=== PATIENT | male | born 1975 | race Caucasian/White ===

== ENCOUNTER 2017-05-04 13:30 | Outpatient (RCR) | payer OTHER, SELFPAY | END 2017-05-04 13:31 | disposition home or self-care (01) | LOC: PT 13:30 | PROVIDERS: Visit Provider Orthopaedic Surgery | DX: M43.26 Fusion of spine, lumbar region (principal) | CPT/HCPCS: 97010; 97012; 97014; 97033; 97035; 97110; G0283 ==

== ENCOUNTER → 2018-05-01 13:03 | Outpatient (CLI) | payer OTHER, SELFPAY | PROVIDERS: PCP Family Medicine; Visit Provider Family Medicine | DX: R06.83 Snoring (principal); R53.83 Other fatigue; G47.33 Obstructive sleep apnea (adult) (pediatric) | CPT/HCPCS: 95806 ==

== ENCOUNTER → 2018-12-19 12:24 | Outpatient (CLI) | payer OTHER, SELFPAY ==
[2018-12-19 12:53] LABS: Basophils # 0.1 K/mm3 (0-0.2); Basophils % 0.9 % (0.1-2.0); Eosinophils # 0.2 K/mm3 (0.0-0.4); Eosinophils % 3.3 % (0.1-12.0); Hematocrit 43.9 % (42.0-52.0); Hemoglobin 14.1 g/dL (14.1-18.0); Mean Corpuscular HGB Conc 32.2 g/dL (31.8-35.4); Mean Corpuscular Hemoglobin 29.1 pg (27.0-31.2); Mean Corpuscular Volume 90.5 fl (80-94); Mean Platelet Volume 7.9 fl (7.4-10.4); Monocytes # 0.3 K/mm3 (0.1-1.0); Monocytes % 4.8 % (1.7-9.3); Neutrophils # 4.5 K/mm3 (1.8-7.8); Neutrophils % 63.1 % (37.0-80.0); Platelet Count 281 K/mm3 (142-424); Red Blood Count 4.85 M/mm3 (4.60-6.20); Red Cell Distribution Width 13.4 % (11.5-17.5); White Blood Count 7.1 K/mm3 (4.8-10.8)
[2018-12-19 13:57] LABS: Alanine Aminotransferase 74 U/L (12-78); Albumin Level 4.1 gm/dL (3.4-5.0); Alkaline Phosphatase 71 U/L (46-116); Aspartate Amino Transferase 31 U/L (15-37); Bilirubin,Direct 0.1 mg/dL (0.0-0.2); Bilirubin,Indirect 0.3 mg/dL (0.0-0.9); Bilirubin,Total 0.4 mg/dL (0.2-1.0); Total Protein,Serum 7.1 gm/dL (6.4-8.2)
[2018-12-19 14:53] LABS: Uric Acid 7.5 mg/dL (2.6-7.2)
[2018-12-24 12:54] LABS: Testosterone, Total, LC/MS 97.2 ng/dL (264.0-916.0); Testosterone,Free 1.5 pg/mL (6.8-21.5)
== END ==
PROVIDERS: Visit Provider Urology
DX: E34.9 Endocrine disorder, unspecified (principal); E79.0 Hyperuricemia without signs of inflammatory arthritis and tophaceous disease
CPT/HCPCS: 36415; 80076; 84402; 84403; 84550; 85025

== ENCOUNTER → 2019-02-17 15:29 | Outpatient (CLI) | payer OTHER, SELFPAY ==
[2019-02-17 15:34] LABS: Adenovirus,PCR Not Detected (NotDetected); Bordetella Pertussis Not Detected (NotDetected); Chlamydophila Pneumoniae, PCR Not Detected (NotDetected); Coronavirus 229E Not Detected (NotDetected); Coronavirus NL63 Not Detected (NotDetected); Coronavirus OC43 Not Detected (NotDetected); Coronovirus HKU1,PCR Not Detected (NotDetected); Human Metapneumovirus Not Detected (NotDetected); Influenza A, PCR Not Detected (NotDetected); Influenza AH1, 2009 Not Detected (NotDetected); Influenza AH1, PCR Not Detected (NotDetected); Influenza AH3,PCR Not Detected (NotDetected); Influenza B, PCR Not Detected (NotDetected); Mycoplasma Pneumoniae, PCR Not Detected (NotDetected); Parainfluenza 1, PCR Not Detected (NotDetected); Parainfluenza 2, PCR Not Detected (NotDetected); Parainfluenza 3, PCR Not Detected (NotDetected); Parainfluenza 4, PCR Not Detected (NotDetected); Respiratory Syncytial Virus Not Detected (NotDetected); Rhinovirus/Enterovirus Not Detected (NotDetected)
== END ==
PROVIDERS: Visit Provider Family Medicine
DX: J06.9 Acute upper respiratory infection, unspecified (principal)
CPT/HCPCS: 87486; 87581; 87633; 87798

== ENCOUNTER → 2019-02-21 16:21 | Outpatient (CLI) | payer OTHER, SELFPAY ==
--- NOTE | 2019-02-21 | XR_ITS ---
PROCEDURE: XR CHEST 2V CLINICAL HISTORY: BRONCHITIS COMPARISON: No exams were available for comparison FINDINGS: The cardiomediastinal silhouette and pulmonary vascularity are within normal limits. There is a dense likely calcified 2.0 millimeter nodule in the lingular or left lower lobe. The remainder of the lung smith are clear. No acute bony abnormalities. IMPRESSION: No acute findings. Dictated by: Tai Norris 02/21/2019 16:43 Electronically signed by Tai Norris in [place] 02/21/2019 16:43
== END ==
PROVIDERS: PCP Physician Assistant; Visit Provider Physician Assistant
DX: J40 Bronchitis, not specified as acute or chronic (principal)
CPT/HCPCS: 71046

== ENCOUNTER → 2019-06-19 10:08 | Outpatient (CLI) | payer OTHER, SELFPAY ==
[2019-06-19 10:39] LABS: Basophils # 0.1 K/mm3 (0-0.2); Basophils % 1.5 % (0.1-2.0); Eosinophils # 0.3 K/mm3 (0.0-0.4); Hematocrit 47.2 % (42.0-52.0); Hemoglobin 15.6 g/dL (14.1-18.0); Lymphocytes % 26.3 % (10-50); Mean Corpuscular HGB Conc 33.1 g/dL (31.8-35.4); Mean Corpuscular Hemoglobin 29.2 pg (27.0-31.2); Mean Platelet Volume 8.2 fl (7.4-10.4); Monocytes # 0.4 K/mm3 (0.1-1.0); Monocytes % 5.1 % (1.7-9.3); Neutrophils # 4.8 K/mm3 (1.8-7.8); Neutrophils % 63.1 % (37.0-80.0); Platelet Count 288 K/mm3 (142-424); Red Blood Count 5.36 M/mm3 (4.60-6.20); Red Cell Distribution Width 13.3 % (11.5-17.5); White Blood Count 7.6 K/mm3 (4.8-10.8)
[2019-06-19 11:16] LABS: Bilirubin,Unconjugated 0.5 mg/dL (0.0-1.1)
[2019-06-19 11:17] LABS: Alanine Aminotransferase 81 U/L (12-78); Albumin Level 4.8 g/dl (3.5-5.0); Alkaline Phosphatase 71 U/L (38-126); Aspartate Amino Transferase 49 U/L (17-59); Bilirubin,Indirect 0.5 mg/dL (0.0-0.9); Bilirubin,Total 0.5 mg/dl (0.2-1.3); Total Protein,Serum 7.9 g/dl (6.3-8.2); Uric Acid 7.6 mg/dl (3.5-8.5)
[2019-06-21 11:17] LABS: Testosterone, Total, LC/MS 170.3 ng/dL (264.0-916.0)
== END ==
PROVIDERS: Visit Provider Urology
DX: E29.1 Testicular hypofunction (principal)
CPT/HCPCS: 36415; 80076; 84402; 84403; 84550; 85025

== ENCOUNTER → 2019-06-23 10:49 | Outpatient (CLI) | payer OTHER, SELFPAY ==
--- NOTE | 2019-06-23 11:00 | XR_ITS ---
PROCEDURE: XR FOOT RT MIN 3V CLINICAL INDICATION: RT FOOT PAIN Right foot and ankle pain COMPARISON: XR ANKLE RT MIN 3V from 06/23/2019 FINDINGS: No fracture or dislocation. No lytic or blastic change. There is normal mineralization. Minimal hypertrophic changes are present at the distal tibia with minimal spurring. Rounded soft tissue calcifications are present along the lower aspect of the distal leg and may be due to phleboliths. No acute fracture or dislocation. No lytic or blastic change. Other findings:None. IMPRESSION: Mild degenerative changes of the ankle otherwise negative right ankle and foot Dictated by: Alberto Dubose MD 06/23/2019 14:05 Electronically signed by Alberto Dubose MD in [place] 06/23/2019 14:05
== END ==
PROVIDERS: PCP Family Medicine; Visit Provider Nurse Practitioner Family
DX: M79.671 Pain in right foot (principal); M25.571 Pain in right ankle and joints of right foot
CPT/HCPCS: 73610; 73630

== ENCOUNTER → 2019-12-19 13:37 | Outpatient (CLI) | payer OTHER, SELFPAY ==
[2019-12-19 14:27] LABS: Basophils # 0.1 K/mm3 (0-0.2); Basophils % 0.7 % (0.1-2.0); Eosinophils # 0.3 K/mm3 (0.0-0.4); Eosinophils % 3.4 % (0.1-12.0); Hematocrit 48.4 % (42.0-52.0); Hemoglobin 16.3 g/dL (14.1-18.0); Lymphocytes # 2.2 K/mm3 (0.7-4.5); Lymphocytes % 29.7 % (10-50); Mean Corpuscular HGB Conc 33.7 g/dL (31.8-35.4); Mean Corpuscular Hemoglobin 29.5 pg (27.0-31.2); Mean Corpuscular Volume 87.7 fl (80-94); Mean Platelet Volume 7.6 fl (7.4-10.4); Monocytes # 0.4 K/mm3 (0.1-1.0); Monocytes % 5.3 % (1.7-9.3); Neutrophils # 4.5 K/mm3 (1.8-7.8); Neutrophils % 60.9 % (37.0-80.0); Platelet Count 291 K/mm3 (142-424); Red Blood Count 5.52 M/mm3 (4.60-6.20); Red Cell Distribution Width 14.1 % (11.5-17.5); White Blood Count 7.4 K/mm3 (4.8-10.8)
[2019-12-19 15:07] LABS: Alanine Aminotransferase 55 U/L (12-78); Aspartate Amino Transferase 37 U/L (17-59); Bilirubin,Indirect 0.4 mg/dL (0.0-0.9); Bilirubin,Total 0.4 mg/dl (0.2-1.3); Bilirubin,Unconjugated 0.4 mg/dL (0.0-1.1)
[2019-12-19 15:08] LABS: Albumin Level 4.9 g/dl (3.5-5.0); Alkaline Phosphatase 74 U/L (38-126); Total Protein,Serum 7.8 g/dl (6.3-8.2)
[2019-12-27 11:30] LABS: Testosterone, Total, LC/MS 281.9 ng/dL (264.0-916.0); Testosterone,Free 7.8 pg/mL (6.8-21.5)
== END ==
PROVIDERS: Visit Provider Urology
DX: E34.9 Endocrine disorder, unspecified (principal)
CPT/HCPCS: 36415; 80076; 84402; 84403; 85025

== ENCOUNTER → 2020-01-28 10:20 | Outpatient (CLI) | payer OTHER, SELFPAY ==
[2020-01-28 12:44] LABS: Basophils # 0.1 K/mm3 (0-0.2); Basophils % 1.1 % (0.1-2.0); Eosinophils # 0.2 K/mm3 (0.0-0.4); Hematocrit 51.6 % (42.0-52.0); Hemoglobin 16.7 g/dL (14.1-18.0); Lymphocytes # 2.3 K/mm3 (0.7-4.5); Lymphocytes % 27.8 % (10-50); Mean Corpuscular HGB Conc 32.5 g/dL (31.8-35.4); Mean Corpuscular Hemoglobin 29.5 pg (27.0-31.2); Mean Corpuscular Volume 90.8 fl (80-94); Mean Platelet Volume 8.2 fl (7.4-10.4); Monocytes # 0.4 K/mm3 (0.1-1.0); Monocytes % 4.5 % (1.7-9.3); Neutrophils # 5.3 K/mm3 (1.8-7.8); Neutrophils % 64.6 % (37.0-80.0); Platelet Count 350 K/mm3 (142-424); Red Blood Count 5.68 M/mm3 (4.60-6.20); Red Cell Distribution Width 14.2 % (11.5-17.5); White Blood Count 8.2 K/mm3 (4.8-10.8)
[2020-01-29 13:26] LABS: Covid-19 Nasal PCR Sendout Lex NOT DETECTED
== END ==
PROVIDERS: PCP Family Medicine; Visit Provider Physician Assistant
DX: Z03.818 Encounter for observation for suspected exposure to other biological agents ruled out (principal)
CPT/HCPCS: 36415; 85025; 87275; 87276; U0004

== ENCOUNTER 2020-02-04 20:05 | Emergency (ER) | payer OTHER, SELFPAY ==
[2020-02-04 20:16] VITALS: BP 172/94; PULSE 102; RESP 20; TEMP 36.7; O2SAT 100; BMI 35.6
--- NOTE | 2020-02-04 20:32 | HMH.EDUTC ---
[facility] [place] Dis[place] Clinical Impression: Elevated blood pressure reading Disposition: Home, Self-Care Condition on Discharge: Good Instructions: Essential Hypertension, Low-Sodium Diet Additional Instructions: Start the blood pressure medication (lisinopril) as directed. Follow up with your primary care doctor. Call tomorrow to get an appointment scheduled within the next 10 days or so. Keep checking your blood pressure twice per day at home. Keep a log of the results. If you have more symptoms like elevated blood pressure and severe headache or nose bleeds or dizziness like you were having, please go to the ER. GO TO THE ER FOR ANY WORSENING SYMPTOMS OR CONCERNS LIFESTYLE MODIFICATIONS: LOW SODIUM DIET, LOW IMPACT EXERCISE FOR 30 MINUTES PER DAY (WALKING), REDUCE STRESS, ETC. Prescriptions: lisinopriL [Lisinopril 10mg Tab] 10 mg PO DAILY 30 Days #30 tab Transmission Status: Received by [id number] Referrals: Minh Pop MD [Primary Care Provider] - Time of Disposition: 20:49 Medical Decision Making - Medical Records Medical records reviewed: No: I reviewed the patient's medical records. - Jai Inquiry Pt receiving controlled substance: No Vital Signs: 02/04/20 20:16 02/04/20 20:50 Temperature 98.1 F Temperature Source Oral Pulse Rate [Radial] 102 H Respiratory Rate 20 Blood Pressure [Right Arm] 172/94 H 144/76 H Blood Pressure Mean [Right Arm] 120 98 Blood Pressure Source [Right Arm] Automatic Cuff Automatic Cuff Blood Pressure Position [Right Arm] Sitting Sitting 02 Sat by Pulse Oximetry 100 Oxygen Delivery Method Room Air Orders (Tests/Meds): ED MEDICATIONS Discontinued Medications Generic Name Dose Route Start Last Admin Trade Name Izabel PRN Reason Stop Dose Admin Clonidine HCl 0.1 mg 02/04/20 20:35 02/04/20 20:36 Clonidine 0.1mg Tablet PO 02/04/20 20:36 0.1 mg ONCE ONE Administration [facility] [place] HPI - General Stated complaint: high blood pressure at home Time Seen by Provider: 02/04/20 20:20 Mode of Arrival: Ambulatory Source of Information: Patient Limitations: No Limitations Description of Symptoms (Recalled from Triage Doc. by RN): blood pressure issues. MEJIA HEENT Symptoms (Recalled from RN notes): Yes Resp Symptoms (Recalled from RN notes): No Skin Symptoms (Recalled from RN notes): No MS Symptoms (Recalled from RN notes): No Functional Status (Recalled from RN notes): wnl - History of Present Illness Provider Complaint: He states that he has been having elevated blood pressure at home over the past several days. He has got results as high as 230/120. He was having headache and dizziness yesterday, but he denies any discomfort today. He denies any shortness of breath and chest pain. - Related Data Home Medications Medication Instructions Recorded Confirmed guanfacine 2 mg tablet,extended 2 mg PO DAILY 05/09/18 12/19/19 release 24 hr allopurinoL [Allopurinol 100mg 100 mg PO DAILY 10/28/18 12/19/19 tablet] Previous Rx's Medication Instructions Recorded lisinopriL [Lisinopril 10mg Tab] 10 mg PO DAILY 30 Days #30 tab 02/04/20 Allergies Allergy/AdvReac Type Severity Reaction Status Date / Time No Known Allergies Allergy Verified 12/19/19 13:09 - Worker's Comp Is this a Worker's Comp case?: No [facility] History - Hepatitis A Screen Drug use history?: No High risk sexual behaviors?: No History of sexually transmitted infection?: No Currently employed?: No Childcare worker?: No Do you have indoor plumbing?: Yes Do you have electricity?: Yes Attestation statement:: This patient has been screened for Hepatitis A risk factors. I have reviewed the patient's past medical history: Yes Medical History: Denies:: Cancer, Diabetes Mellitus Type 1, Diabetes Mellitus Type 2, MRSA Laterality Cases: Bilateral: Tonsillectomy, Other Other Surgeries: Yes: No Previous Surgery, Other Amputation: No Fracture
[2020-02-04 20:50] VITALS: BP 144/76
[2020-02-04 20:56] VITALS: BP 144/76; PULSE 102; RESP 20; TEMP 36.7; O2SAT 100
== END 2020-02-04 20:57 | disposition home or self-care (01) ==
PROVIDERS: Emergency Provider Nurse Practitioner Family; PCP Family Medicine
DX: R42 Dizziness and giddiness (principal); I10 Essential (primary) hypertension
CPT/HCPCS: 99201

== ENCOUNTER 2020-02-06 09:42 | Emergency (ER) | payer OTHER, SELFPAY ==
[2020-02-06] VITALS (7 sets, daily range): BP systolic 107–148; BP diastolic 72–102; PULSE 58–86; RESP 13–24; TEMP 36.4–36.7; O2SAT 96–99; BMI 35.6
--- NOTE | 2020-02-06 09:40 | ECG_ITS ---
APPROVED REPORT Exam: Resting ECG HR:70 bpm ECG Measurements Heart Rate 70 AXES WV 150 P 40 QRSd 106 QRS 34 QT 390 T 51 QTc 421 Conclusion Normal sinus rhythm Normal ECG Electronically signed by : Mario Cramer, 02/07/2020 10:35:03
--- NOTE | 2020-02-06 09:45 | HMH.EDGENADL ---
ED Disposition Clinical Impression: Headache Qualifiers: Headache type: unspecified Headache chronicity pattern: acute headache Intractability: not intractable Qualified Code(s): R51.9 - Headache, unspecified Hypertension Qualifiers: Hypertension type: essential hypertension Qualified Code(s): I10 - Essential (primary) hypertension Disposition: Home, Self-Care Condition on Discharge: Good Instructions: DI for Migraine Additional Instructions: Please continue with blood pressure log as directed by PCP and continue taking lisinopril as prescribed. Diet and exercise can also be effective when dealing with hypertension. Please follow-up with your doctor in regards to recurrent headaches. Immediately return to our emergency department if recurrent chest pain, lightheadedness, shortness of breath, blurry vision, blood pressure concerns, or any other new concerning symptoms. Please refrain from any stressful activities or heavy workload over the weekend. Referrals: PCP,No [Non-Staff] - - Critical Care Critical Care Time: No Attestation: On , the high probability of a clinically significant, sudden or life threatening deterioration of the following system(s) required my full and direct attention, intervention and personal management. The time I documented below is in addition to time spent performing reported procedures but includes the following listed in this critical care notation. Medical Decision Making - Medical Records Medical records reviewed: Yes: I reviewed the patient's medical records. - Jai Inquiry Pt receiving controlled substance: No Vital Signs: 02/06/20 09:42 02/06/20 10:33 02/06/20 11:00 Temperature 97.6 F Temperature Source Oral Pulse Rate [Left Radial] 86 72 75 Respiratory Rate 13 20 24 Blood Pressure [Right Arm] 148/102 H 128/88 134/81 Blood Pressure Mean [Right Arm] 117 101 98 Blood Pressure Source [Right Arm] Automatic Cuff Automatic Cuff Automatic Cuff Blood Pressure Position [Right Arm] Sitting Sitting Sitting 02 Sat by Pulse Oximetry 99 99 97 Oxygen Delivery Method Room Air Room Air Oxygen Flow Rate (LPM) 20 02/06/20 11:30 02/06/20 12:00 02/06/20 12:35 Temperature Temperature Source Pulse Rate [Left Radial] 58 L 78 80 Respiratory Rate 20 22 18 Blood Pressure [Right Arm] 107/72 L 116/79 124/79 Blood Pressure Mean [Right Arm] 83 91 94 Blood Pressure Source [Right Arm] Automatic Cuff Automatic Cuff Automatic Cuff Blood Pressure Position [Right Arm] Sitting Sitting Sitting 02 Sat by Pulse Oximetry 98 96 98 Oxygen Delivery Method Oxygen Flow Rate (LPM) - Lab Data Lab Results 02/06/20 09:45: WBC 8.7, RBC 5.51, Hgb 16.3, Hct 49.5, MCV 89.8, MCH 29.6, MCHC 33.0, RDW 14.3, Plt Count 333, MPV 9.7, Neut % (Auto) 68.9, Lymph % (Auto) 23.2, [facility] % (Auto) 5.1, Eos % (Auto) 2.0, Baso % (Auto) 0.9, Neut # (Auto) 6.0, Lymph # (Auto) 2.0, [facility] # (Auto) 0.4, Eos # (Auto) 0.2, Baso # (Auto) 0.1 02/06/20 09:45: Sodium 138, Potassium 4.4, Chloride 104, Carbon Dioxide 25, Anion Gap 13.4, BUN 13, Creatinine 1.00, Estimated Creat Clear 165, Estimated GFR 82, Est GFR ( Amer) 99, Glucose 101 H, Calcium 10.0, Troponin I < 0.01 02/06/20 12:50: Troponin I < 0.01 Result diagrams: 02/06/20 09:45 02/06/20 09:45 Orders (Tests/Meds): ED MEDICATIONS Discontinued Medications Generic Name Dose Route Start Last Admin Trade Name Karloq PRN Reason Stop Dose Admin Acetaminophen 1,000 mg 02/06/20 10:49 02/06/20 10:50 Acetaminophen 500mg Tab PO 02/06/20 10:50 1,000 mg ONCE ONE Administration Diphenhydramine HCl 25 mg 02/06/20 12:20 02/06/20 12:36 Diphenhydramine 50mg/Ml Vial IV 02/06/20 12:21 25 mg ONCE ONE Administration Sodium Chloride 500 mls @ 999 mls/hr 02/06/20 12:30 02/06/20 12:36 Sod Chlor 0.9% 1000ml Bag IV 02/06/20 13:00 999 mls/hr .Q31M DEMOND Administration Prochlorperazine Edisylate 10 mg 02/06/20 12:20 02/06/20 12:35 Proch
--- NOTE | 2020-02-06 09:49 | XR_ITS ---
PROCEDURE: XR CHEST PORTABLE CLINICAL HISTORY: hypertension COMPARISON: CR XR CHEST 2V from 02/21/2019 FINDINGS: The cardiomediastinal silhouette and pulmonary vascularity are within normal limits. The lungs are clear without infiltrates, suspicious nodules, or pleural effusions. No acute bony abnormalities. IMPRESSION: No acute findings. Dictated by: Dr. Luther Watson MD 02/06/2020 10:57 Dr. Luther Watson MD in [place] 02/06/2020 10:57
--- NOTE | 2020-02-06 10:00 | CT_ITS ---
PROCEDURE: CT HEAD/BRAIN WO CON CLINICAL INDICATION: new onset L frontal headache with blurry vision hypertension COMPARISON: No exams were available for comparison TECHNIQUE: Axial images obtained. All CT scans at the facility use one or more dose reduction, viz: automated exposure control, ma/kV adjustment per patient size (including targeted exams where dose is matched to indication, i.e. head), or iterative reconstruction technique. FINDINGS: No midline shift, mass effect, intracranial hemorrhage, hydrocephalus, or extra-axial fluid collection is evident. There are no significant degenerative changes. The calvarium has an unremarkable appearance. No mastoid effusion. No sinus air-fluid level. IMPRESSION: No acute intracranial finding Dictated by: Dr. Luther Watson MD 02/06/2020 10:57 Dr. Luther Watson MD in [facility] 02/06/2020 10:57
[2020-02-06 10:01] LABS: Chloride 104 mmol/L (98-107); Potassium 4.4 mmoL/L (3.5-5.1); Sodium 138 mmol/L (136-145)
[2020-02-06 10:04] LABS: Anion Gap 13.4 mEq/L (5-15); Blood Urea Nitrogen 13 mg/dl (9-20); Carbon Dioxide 25 mmol/L (22.0-30.0); Creatinine Clearance Estimated 165 mL/min (50-200); Estimated Glomerular Filt Rate 82 ml/min (>60); GFR (African American) 99 ML/MIN (>60); Glucose 101 mg/dl (74-100)
[2020-02-06 10:05] LABS: Basophils # 0.1 K/mm3 (0-0.2); Basophils % 0.9 % (0.1-2.0); Eosinophils # 0.2 K/mm3 (0.0-0.4); Hematocrit 49.5 % (42.0-52.0); Hemoglobin 16.3 g/dL (14.1-18.0); Lymphocytes % 23.2 % (10-50); Mean Corpuscular Hemoglobin 29.6 pg (27.0-31.2); Mean Corpuscular Volume 89.8 fl (80-94); Mean Platelet Volume 9.7 fl (7.4-10.4); Monocytes # 0.4 K/mm3 (0.1-1.0); Monocytes % 5.1 % (1.7-9.3); Neutrophils % 68.9 % (37.0-80.0); Platelet Count 333 K/mm3 (142-424); Red Blood Count 5.51 M/mm3 (4.60-6.20); Red Cell Distribution Width 14.3 % (11.5-17.5); White Blood Count 8.7 K/mm3 (4.8-10.8)
[2020-02-06 10:23] LABS: Troponin I < 0.01 ng/ml (0.00-0.034)
--- NOTE | 2020-02-06 10:31 | PC.NURSE ---
speaking with pt nurse at the nursing due to pt resistance of reinsertion of G-tube. Nurse states that at 7am the g-tube was out. Pt was scheduled for a 1am med and was given this medicine per nurse.
--- NOTE | 2020-02-06 12:55 | PC.NURSE ---
2nd trop sent to lab
[2020-02-06 13:27] LABS: Troponin I < 0.01 ng/ml (0.00-0.034)
== END 2020-02-06 14:04 | disposition home or self-care (01) ==
PROVIDERS: Emergency Provider Emergency Medicine; PCP Family Medicine
DX: G43.909 Migraine, unspecified, not intractable, without status migrainosus (principal); I10 Essential (primary) hypertension; R07.89 Other chest pain; Z79.899 Other long term (current) drug therapy
CPT/HCPCS: 70450; 71045; 80048; 84484; 85025; 93005; 96365; 96375; 99283

== ENCOUNTER → 2020-02-24 13:46 | Outpatient (CLI) | payer OTHER, SELFPAY | PROVIDERS: PCP Family Medicine; Visit Provider Physician Assistant | DX: R07.89 Other chest pain (principal); R00.2 Palpitations; R94.31 Abnormal electrocardiogram [ECG] [EKG]; R55 Syncope and collapse; R51.9 Headache, unspecified; I10 Essential (primary) hypertension | CPT/HCPCS: 93225; 93226 ==

== ENCOUNTER → 2020-03-03 07:37 | Outpatient (CLI) | payer OTHER, SELFPAY ==
--- NOTE | 2020-03-03 07:38 | CA_ITS ---
APPROVED REPORT Flow Worker: Jihan Em RVT Study Quality: Good Indications: chest pain, dyspnea, Uncontrolled HTN Risk Factors Hypertension Renal Artery Doppler Origin (R) 143.0/ cm/sec Proximal (R) 106.9/ cm/sec Mid (R) 139.8/ cm/sec Distal (R) 95.8/ cm/sec Renal Aorta Ratio (R) 1.43 Segmental A. (R) 36.4/18.2 cm/sec RI: 0.50 Segmental A. Sup (R) 28.7/10.5 cm/sec Segmental A. Mid (R) 36.4/18.2 cm/sec Segmental A. Inf (R) 30.8/12.8 cm/sec Origin (L) 69.6/ cm/sec Proximal (L) 90.9/ cm/sec Mid (L) 92.6/ cm/sec Distal (L) 124.3/ cm/sec Renal Aorta Ratio (L) 0.00 Segmental A. (L) 49.0/16.3 cm/sec RI: 0.66 Segmental A. Sup (L) 49.0/16.3 cm/sec Segmental A. Mid (L) 41.0/15.7 cm/sec Segmental A. Inf (L) 43.7/14.0 cm/sec Renal Measurements Kidney Size (R) 11.6x7.6 cm Kidney Size (L) 12.5x6.0 cm Findings Study suggests no evidence of stenosis of the bilateral renal arteries. Conclusion Study suggests no evidence of stenosis of the bilateral renal arteries. Electronically signed by : Alberto Dubose MD 03/03/2020 18:57:42
--- NOTE | 2020-03-03 07:38 | CA_ITS ---
APPROVED REPORT EXAM: Comprehensive 2D, Doppler, and color-flow Echocardiogram Area Sales Manager: Jihan Em RVT Ht: 6 ft 1 in Wt: 281lbs BSA: 2.49 BP: 140/91 mmHg Indications: SOA,CP,HTN,EDEMA,PALPS,FATIGUE,ABN EKG 2D Dimensions LVOT 2.24 cm (M/F) 1.5-2.5 M-Mode Dimensions RVDd 3.36 cm (0.9-2.6) LA Diam 3.10 cm (1.9-4.0) LVDd 5.61 cm (3.5-5.7) Ao Diam 3.64 cm (2.0-3.7) LVDs 3.93 cm (3.5-5.7) IVSd 0.61 cm (0.6-1.1) PWd 0.93 cm (0.6-1.1) EF (Teich) 56.50% FS 29.90% EDV (Teich) 154.30 mL ESV (Teich) 67.10 mL LV Diastology E Decel Time 240.00 (160-240 msec) E/A Ratio 0.8 MED E' 5.60 (< 7 cm/sec) E'/MED E' Ratio 11.32 (>14) LAT E' 7.00 (<10 cm/sec) E/LAT E' Ratio 9.06 (>14) Mitral Valve MV E Max Gabriel. 63.00 (40-130 cm/s) MV A Velocity 78.00 (40-130 cm/s) E/A Ratio 0.82 MV Decel. Time 240.00 (160-240 ms) MV PHT 70.00 ms Pulmonary Valve PV Peak Velocity 86.00 (50-150 cm/s) Left Ventricle Left atrium is mildly enlarged, left ventricle is normal size, mild concentric left ventricular hypertrophy, visually estimated ejection fraction 55% with no regional wall motion abnormality, grade 1 diastolic dysfunction seen without tissue Doppler evidence of raise left atrial pressure. Right Ventricle Right atrium and right ventricle are mildly enlarged with normal contractility. Aortic Valve Aortic valve is minimally thickened and fibrosed, there is no aortic stenosis or aortic insufficiency. Mitral Valve Mitral valve is grossly normal, there is mild mitral regurgitation. Tricuspid Valve Tricuspid valve is grossly normal, there is mild tricuspid regurgitation, tricuspid regurgitation jet velocity is inadequate for calculation of the right ventricular systolic pressure. Pulmonic Valve Pulmonic valve is poorly visualized, there is mild pulmonic insufficiency. Great Vessels Aortic root is normal size. Pericardium No significant pericardial effusion noted. Conclusion 1. Mild biatrial enlargement, normal left ventricular size, mild concentric left ventricular hypertrophy, visually estimated ejection fraction 55% with no regional wall motion abnormality, grade 1 diastolic dysfunction seen without tissue Doppler evidence of raise left atrial pressure. 2. Mildly enlarged right ventricle with normal contractility. 3. Mild mitral and tricuspid regurgitation. 4. No significant pericardial effusion noted. Electronically signed by : Malcom Benjamin, 03/04/2020 16:00:28
== END ==
PROVIDERS: PCP Family Medicine; Visit Provider Internal Medicine
DX: R07.89 Other chest pain (principal); R55 Syncope and collapse; R00.2 Palpitations; R94.31 Abnormal electrocardiogram [ECG] [EKG]; I10 Essential (primary) hypertension; R51.9 Headache, unspecified
CPT/HCPCS: 93306; 93976

== ENCOUNTER → 2020-03-10 09:53 | Outpatient (CLI) | payer OTHER, SELFPAY ==
[2020-03-10 11:30] LABS: Alanine Aminotransferase 55 U/L (12-78); Albumin Level 4.9 g/dl (3.5-5.0); Alkaline Phosphatase 79 U/L (38-126); Aspartate Amino Transferase 33 U/L (17-59); Bilirubin,Direct 0.3 mg/dl (0.0-0.4); Bilirubin,Indirect 0.1 mg/dL (0.0-0.9); Bilirubin,Total 0.4 mg/dl (0.2-1.3); Bilirubin,Unconjugated 0.1 mg/dL (0.0-1.1); Chol/HDL Ratio 3.9 (1-3.5); Cholesterol 176 mg/dl (140-200); HDL Cholesterol 45 mg/dl (40-60); Triglycerides 156 mg/dl (30-150); VLDL Cholesterol 31 mg/dL (0-40)
[2020-03-10 11:41] LABS: Direct LDL Cholesterol 104.02 mg/dL (100-129)
[2020-03-10 11:44] LABS: Free T4 (Free Thyroxine) 0.98 ng/dl (0.78-2.19)
[2020-03-10 11:58] LABS: Thyroid Stimulating Hormone 3.17 uIU/mL (0.465-4.68)
== END ==
PROVIDERS: Visit Provider Urology
DX: R07.9 Chest pain, unspecified (principal); R06.00 Dyspnea, unspecified; I10 Essential (primary) hypertension; R60.0 Localized edema
CPT/HCPCS: 36415; 80061; 80076; 84439; 84443

== ENCOUNTER → 2020-03-15 09:12 | Outpatient (CLI) | payer OTHER, SELFPAY ==
--- NOTE | 2020-03-15 09:13 | CA_ITS ---
APPROVED REPORT Exam: Exercise Treadmill Technologist: Tiny Mtz Ht: 6 ft 1 in Wt: 279 lbs BSA: 2.48 m2 HR: 89 bpm BP: 132/85 mmHg Indications: Chest pain, Palpitations Medical History Medications: Lisinopril,,,,, Allopurinol,,,,, HCTZ,,,,, Atomoxetine,,,,, Stress Test Details Test: Cristian HR Resting HR: 107 bpm Max Heart Rate (APMHR): 177 bpm Max HR Achieved: 181 bpm Target HR (85% APMHR): 150 bpm % of APMHR: 102 Recovery HR: 114 bpm BP Resting BP: 132.0/85.0 mmHg Max BP: 164.0/90.0 mmHg Recovery BP: 143.0/82.0 mmHg ECG Resting ECG: Normal sinus rhythm Clinical Reason for Termination: Dyspnea Exercise duration: 09:46 min Highest Stage Achieved: Exercise capacity: 10.1 METs Stress ECG Conclusion Symptoms: Shortness of air. Faint feeling in recovery. No chest pain. Arrhythmias/Ectopy: Rare PVC ST-T Changes: < 1.[address] segment changes. Conclusion: Normal stress test. Patient exercised on a cristian protocol for 9 minutes and 46 seconds to peak heart rate of 180 bpm (target heart rate 150 bpm) without chest pain, ST segment changes or significant arrhythmias. Rare PVC noted. Sensation of feeling like I am going to pass out noted in early recovery without correlating arrhythmia. No imaging obtained. Test Summary RECOVERY 01:00 0.0 0.0 165 . . . Stop exercise at 09:46 REST . . . . . . . Standing REST 06:32 0.0 0.0 107 . 132/ 85 . . Stage 1 01:00 10.0 1.7 115 . . . . Stage 1 02:00 10.0 1.7 123 . . . . Stage 1 03:00 10.0 1.7 126 . 150/ 82 . . Stage 2 01:00 12.0 2.5 135 . . . . Stage 2 02:00 12.0 2.5 139 . . . . Stage 2 03:00 12.0 2.5 146 . 158/ 90 . . Stage 3 01:00 14.0 3.4 159 . . . . Stage 3 02:00 14.0 3.4 165 . . . . Stage 3 03:00 14.0 3.4 169 . 164/ 90 . . Stage 4 00:46 16.0 4.2 180 . . . Stop exercise at 09:46 RECOVERY 01:00 0.0 0.0 165 . . . . RECOVERY 02:00 0.0 0.0 152 . . . . RECOVERY 03:00 0.0 0.0 137 . . . . RECOVERY 04:00 0.0 0.0 130 . . . . RECOVERY 05:00 0.0 0.0 120 . . . . RECOVERY 06:00 0.0 0.0 122 . . . . RECOVERY 07:00 0.0 0.0 119 . . . . RECOVERY 08:00 0.0 0.0 113 . . . . RECOVERY 08:31 0.0 0.0 115 . 143/ 82 . . Electronically signed by : Malcom Benjamin, 03/16/2020 06:15:16
== END ==
PROVIDERS: PCP Family Medicine; Visit Provider Urology
DX: R07.9 Chest pain, unspecified (principal); R06.00 Dyspnea, unspecified; R94.31 Abnormal electrocardiogram [ECG] [EKG]; R60.0 Localized edema; I10 Essential (primary) hypertension
CPT/HCPCS: 93017

== ENCOUNTER 2020-05-03 09:53 | Emergency (ER) | payer OTHER, SELFPAY ==
[2020-05-03 10:08] VITALS: BP 117/75; PULSE 97; RESP 16; TEMP 37; O2SAT 99; BMI 34.2
--- NOTE | 2020-05-03 10:17 | HMH.EDUTC ---
[facility] [place] Impression: Viral syndrome, Exposure to COVID-19 virus Disposition: Home, Self-Care Condition on Discharge: Good Instructions: DI for COVID-19 (Suspected or Confirmed ), Preventing the Spread of Coronavirus Discharge Instructions Additional Instructions: Drink plenty of fluids. Take tylenol for pain or fever. Return if you begin to have difficulty breathing. Follow up with your regular doctor. GO TO THE ER FOR ANY WORSENING SYMPTOMS Prescriptions: Ondansetron [Zofran 4mg ODT] 4 mg PO Q8HP PRN #12 tab.rapdis PRN Reason: Nausea Transmission Status: Received by [facility] Benzonatate [Tessalon Perle 100mg Cap] 100 mg PO TIDP PRN #30 cap PRN Reason: Cough Transmission Status: Received by [facility] Azithromycin [Z-Carlos 250mg Tab*] 250 mg PO UD DOSE PK #6 tab Transmission Status: Received by [facility] Referrals: Minh Pop MD [Primary Care Provider] - Forms: Work/School Release Time of Disposition: 10:22 Medical Decision Making - Medical Records Medical records reviewed: No: I reviewed the patient's medical records. - Jai Inquiry Pt receiving controlled substance: No Vital Signs: 05/03/20 10:08 05/03/20 10:30 Temperature 98.6 F 98 F Temperature Source Oral Pulse Rate 96 H Pulse Rate [Right] 97 H Respiratory Rate 16 16 Blood Pressure 113/73 Blood Pressure [Right Arm] 117/75 Blood Pressure Mean [Right Arm] 89 Blood Pressure Source [Right Arm] Automatic Cuff Blood Pressure Position [Right Arm] Sitting 02 Sat by Pulse Oximetry 99 [facility] [place] - General Stated complaint: covid test Time Seen by Provider: 05/03/20 10:17 Mode of Arrival: Ambulatory Source of Information: Patient Limitations: No Limitations Description of Symptoms (Recalled from Triage Doc. by RN): pt was directly exposed to covid positive son. pt is asymptomatic. HEENT Symptoms (Recalled from RN notes): No Resp Symptoms (Recalled from RN notes): No Skin Symptoms (Recalled from RN notes): No MS Symptoms (Recalled from RN notes): No Functional Status (Recalled from RN notes): na - History of Present Illness Provider Complaint: His son has covid. He is here to be tested himself. - Related Data Home Medications Medication Instructions Recorded Confirmed allopurinol 100 mg tablet 300 mg PO DAILY tab 02/18/20 03/10/20 atomoxetine 18 mg capsule 18 mg PO DAILY cap 02/18/20 03/10/20 Previous Rx's Medication Instructions Recorded hydrochlorothiazide 25 mg tablet 25 mg PO .three times a week #30 02/18/20 tab lisinopril 40 mg tablet 40 mg PO DAILY #90 tab 03/10/20 Azithromycin [Z-Carlos 250mg Tab*] 250 mg PO UD DOSE PK #6 tab 05/03/20 Benzonatate [Tessalon Perle 100mg 100 mg PO TIDP PRN #30 cap 05/03/20 Cap] Ondansetron [Zofran 4mg ODT] 4 mg PO Q8HP PRN #12 tab.rapdis 05/03/20 Allergies Allergy/AdvReac Type Severity Reaction Status Date / Time No Known Allergies Allergy Verified 05/03/20 10:00 - Worker's Comp Is this a Worker's Comp case?: No [facility] History - Hepatitis A Screen Drug use history?: No High risk sexual behaviors?: No History of sexually transmitted infection?: No Currently employed?: No Childcare worker?: No Do you have indoor plumbing?: Yes Do you have electricity?: Yes Attestation statement:: This patient has been screened for Hepatitis A risk factors. I have reviewed the patient's past medical history: Yes Medical History: Reports:: Hypertension Denies:: Cancer, Diabetes Mellitus Type 1, Diabetes Mellitus Type 2, MRSA Laterality Cases: Bilateral: Tonsillectomy, Other Other Surgeries: Yes: No Previous Surgery, Other Amputation: No Fractures: No Comment: BACK SURGERY - Social History Smoking Status: Never smoker Alcohol Intake: never Alcohol Intake Frequency:: a few times a month Substance Use Type: denies use Occupational Status: employed Housing: house Family Hx:: Hypertension, Canc
[2020-05-03 10:30] VITALS: BP 113/73; PULSE 96; RESP 16; TEMP 36.6
--- NOTE | 2020-05-03 13:46 | PC.NURSE ---
PT NOTIFIED OF POSITIVE COVID TEST RESULTS
== END 2020-05-03 10:30 | disposition home or self-care (01) ==
PROVIDERS: Emergency Provider Nurse Practitioner Family; PCP Family Medicine
DX: U07.1 COVID-19 (principal); I10 Essential (primary) hypertension
CPT/HCPCS: 99202; G0463; U0003

== ENCOUNTER 2020-08-29 10:10 | Emergency (ER) | payer OTHER, SELFPAY ==
[2020-08-29 10:10] VITALS: BP 124/80; PULSE 84; RESP 16; TEMP 36.9; O2SAT 98; BMI 28.3
--- NOTE | 2020-08-29 10:14 | HMH.EDGENADL ---
ED Disposition Clinical Impression: Multiple abrasions Lumbar strain Qualifiers: Encounter type: initial encounter Qualified Code(s): S39.012A - Strain of muscle, fascia and tendon of lower back, initial encounter Sprain of left foot Qualifiers: Encounter type: initial encounter Qualified Code(s): S93.602A - Unspecified sprain of left foot, initial encounter Right shoulder strain Qualifiers: Encounter type: initial encounter Qualified Code(s): S46.911A - Strain of unspecified muscle, fascia and tendon at shoulder and upper arm level, right arm, initial encounter Disposition: Home, Self-Care Condition on Discharge: Good Instructions: DI for Low Back Pain, DI for Foot Sprain, How to Use Crutches Additional Instructions: Follow-up with Dr. Matias for low back pain. Call tomorrow for appointment. Follow-up with Dr. Hamm for foot injury, call tomorrow for appointment. Crutches and orthopedic boot until follow-up. Ice and elevation for pain and swelling. [place] for pain. Sitting job only until seen for follow-up. Additional instructions for CONTROLLED SUBSTANCES: You have been prescribed a medication that is a controlled substance. Controlled substances include pain medications known as opiates and sedative nerve medications known as benzodiazepines. Tramadol, fioricet, and gabapentin are also controlled substances. Some common opiates include: Codeine (such as Tylenol #3) Hydrocodone (Vicodin, Lortab, Lorcet, [place]) Oxycodone (Percocet, Percodan, Oxycodone, Oxy IR) Some common benzodiazepines include: Diazepam (Valium) Lorazepam (Ativan) Alprazolam (Xanax) Clonazepam (Klonopin) Oxazepam (Serax) All of these controlled substances are highly addictive and frequently abused. Misuse can and frequently does lead to addiction as well as overdose and . Medication should be stored in a locked cabinet or other secure storage unit. Do not store the medication in a motor vehicle. Short term supplies, 3 days or less, are prescribed because of the highly addictive nature of the medication. Any of the controlled substance medication NOT taken should be disposed of properly and NOT SAVED. The recommended method of disposing of unused medications is: Place the medicines in a sealable plastic bag. If the medicine is a solid, crush it or add water to dissolve it. Add something undesirable (cat litter, coffee grounds, etc.) Dispose of sealed bag in household trash Do not flush or pour unused medicines down a sink or drain. Controlled substances should not be shared, given away or sold. Because of the addictive nature and frequent abuse, these medications are sometimes stolen. These medications should be kept in a safe place where they cannot be stolen. Do not keep them in your car or purse. Lost or stolen prescriptions for controlled substances WILL NOT BE REFILLED in this emergency department, regardless of whether a police report was filed. Prescriptions: Hydrocod/Acet 5/325 mg [[place] 5/325mg tablet] 1 tab PO Q6HP PRN #10 tab PRN Reason: Pain Transmission Status: Sent to [facility] Referrals: Minh Pop MD [Primary Care Provider] - - Critical Care Critical Care Time: No Attestation: On , the high probability of a clinically significant, sudden or life threatening deterioration of the following system(s) required my full and direct attention, intervention and personal management. The time I documented below is in addition to time spent performing reported procedures but includes the following listed in this critical care notation. Medical Decision Making - Jai Inquiry Pt receiving controlled substance: Yes Jai was queried for this patient: Yes Risks and benefits of using a controlled substance: were discussed with pt by me Vital Signs: 08/29/20 10:10 08/29/20 11:08 Temperature 98.5 F Temperature Source Oral Pulse Rate 69 Pulse Rate [Radial] 84 Respir
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
--- NOTE | 2020-08-29 10:21 | XR_ITS ---
PROCEDURE INFORMATION: Exam: XR Left Foot Exam date and time: 08/29/2020 10:21 AM Age: 45 years old Clinical indication: Patient HX: Left foot pain; Additional info: Injury TECHNIQUE: Imaging protocol: XR Left foot. Views: 3 or more views. COMPARISON: No relevant prior studies available. FINDINGS: Bones/joints: Moderate posterior calcaneal spur. Soft tissues: Normal. IMPRESSION: Moderate posterior calcaneal spur. No definite fractures identified.
--- NOTE | 2020-08-29 10:21 | XR_ITS ---
PROCEDURE INFORMATION: Exam: XR Right Shoulder Exam date and time: 08/29/2020 10:21 AM Age: 45 years old Clinical indication: Patient HX: Right shoulder pain; Additional info: Injury TECHNIQUE: Imaging protocol: XR Right shoulder. Views: 2 or more views. COMPARISON: CR XR CHEST PORTABLE 02/06/2020 10:43 AM FINDINGS: Bones/joints: Normal. Soft tissues: Normal. IMPRESSION: No acute findings.
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
[2020-08-29 11:08] VITALS: BP 110/69; PULSE 69; RESP 16; O2SAT 98
[2020-08-29 12:47] VITALS: BP 122/74; PULSE 78; RESP 16; TEMP 36.6; O2SAT 98
== END 2020-08-29 12:48 | disposition home or self-care (01) ==
PROVIDERS: Emergency Provider Emergency Medicine; PCP Family Medicine
DX: S39.012A Strain of muscle, fascia and tendon of lower back, initial encounter (principal); S93.602A Unspecified sprain of left foot, initial encounter; S46.911A Strain of unspecified muscle, fascia and tendon at shoulder and upper arm level, right arm, initial encounter; T07.XXXA Unspecified multiple injuries, initial encounter; W30.9XXA Contact with unspecified agricultural machinery, initial encounter; Y92.69 Other specified industrial and construction area as the place of occurrence of the external cause; Y99.0 Civilian activity done for income or pay; Z23 Encounter for immunization
CPT/HCPCS: 29515; 72131; 73030; 73630; 73700; 90471; 90715; 96372; 99283; J2405

== ENCOUNTER → 2020-09-08 08:11 | Outpatient (CLI) | payer OTHER, SELFPAY ==
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
== END ==
PROVIDERS: PCP Family Medicine; Visit Provider Nurse Practitioner
DX: M79.672 Pain in left foot (principal); S93.602A Unspecified sprain of left foot, initial encounter
CPT/HCPCS: 73720; A9576

== ENCOUNTER → 2020-09-10 11:09 | Outpatient (CLI) | payer OTHER, SELFPAY ==
--- NOTE | 2020-09-10 11:22 | XR_ITS ---
PROCEDURE: XR CHEST 2V CLINICAL HISTORY: HX OF HIGH BLOOD PRESSURE COMPARISON: CR XR CHEST 2V from 02/21/2019 CR XR CHEST PORTABLE from 02/06/2020 FINDINGS: The cardiomediastinal silhouette and pulmonary vascularity are within normal limits. No lobar consolidation or collapse. Calcified granuloma is present in the left lower lobe. Lungs are otherwise clear. No acute bony abnormalities. IMPRESSION: No acute findings. Dictated by: Alberto Dubose MD 09/10/2020 12:00 Alberto Dubose MD in [place] 09/10/2020 12:00
--- NOTE | 2020-09-10 11:35 | ECG_ITS ---
APPROVED REPORT Exam: Resting ECG HR:70 bpm ECG Measurements Heart Rate 70 AXES NC 156 P 47 QRSd 92 QRS 46 QT 384 T 38 QTc 414 Conclusion Normal sinus rhythm Normal ECG Electronically signed by : Mario Cramer, 09/10/2020 21:33:02
[2020-09-10 12:02] LABS: Basophils # 0.1 K/mm3 (0-0.2); Basophils % 0.9 % (0.1-2.0); Eosinophils # 0.2 K/mm3 (0.0-0.4); Eosinophils % 2.3 % (0.1-12.0); Hematocrit 44.3 % (42.0-52.0); Hemoglobin 15.2 g/dL (14.1-18.0); Lymphocytes # 2.4 K/mm3 (0.7-4.5); Lymphocytes % 29.4 % (10-50); Mean Corpuscular HGB Conc 34.3 g/dL (31.8-35.4); Mean Corpuscular Hemoglobin 30.6 pg (27.0-31.2); Mean Corpuscular Volume 89.1 fl (80-94); Mean Platelet Volume 7.9 fl (7.4-10.4); Monocytes # 0.5 K/mm3 (0.1-1.0); Monocytes % 5.7 % (1.7-9.3); Neutrophils # 5.1 K/mm3 (1.8-7.8); Neutrophils % 61.7 % (37.0-80.0); Platelet Count 296 K/mm3 (142-424); Red Blood Count 4.97 M/mm3 (4.60-6.20); Red Cell Distribution Width 14.2 % (11.5-17.5); White Blood Count 8.3 K/mm3 (4.8-10.8)
[2020-09-10 12:31] LABS: Alanine Aminotransferase 51 U/L (12-78); Albumin/Globulin Ratio 1.8 (1.1-1.8); Alkaline Phosphatase 81 U/L (38-126); Anion Gap 17.4 mEq/L (5-15); Aspartate Amino Transferase 35 U/L (17-59); Bilirubin,Total 0.5 mg/dl (0.2-1.3); Blood Urea Nitrogen 17 mg/dl (9-20); Calcium 9.8 mg/dl (8.4-10.2); Carbon Dioxide 29 mmol/L (22.0-30.0); Chloride 101 mmol/L (98-107); Estimated Glomerular Filt Rate 92 ml/min (>60); GFR (African American) 111 ML/MIN (>60); Globulin 2.8 g/dL (1.3-3.2); Glucose 93 mg/dl (74-100); Potassium 5.4 mmoL/L (3.5-5.1); Sodium 142 mmol/L (136-145); Total Protein,Serum 7.8 g/dl (6.3-8.2); Uric Acid 5.3 mg/dl (3.5-8.5)
== END ==
PROVIDERS: Visit Provider Podiatrist
DX: S86.312A Strain of muscle(s) and tendon(s) of peroneal muscle group at lower leg level, left leg, initial encounter (principal)
CPT/HCPCS: 36415; 71046; 80053; 84550; 85025; 93005

== ENCOUNTER → 2020-09-15 09:50 | Outpatient (CLI) | payer OTHER, SELFPAY | PROVIDERS: Visit Provider Podiatrist | DX: Z01.812 Encounter for preprocedural laboratory examination (principal); Z11.52 Encounter for screening for COVID-19; S86.302A Unspecified injury of muscle(s) and tendon(s) of peroneal muscle group at lower leg level, left leg, initial encounter | CPT/HCPCS: U0003 ==

== ENCOUNTER 2020-09-17 07:56 | Day surgery (SDC) | payer OTHER, SELFPAY ==
[2020-09-14 10:46] VITALS: BMI 33.2
[2020-09-17] VITALS (15 sets, daily range): BP systolic 115–134; BP diastolic 52–80; PULSE 72–100; RESP 12–18; TEMP 36.1–43; O2SAT 94–99
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
--- NOTE | 2020-09-17 10:19 | SUR.OPER ---
1019- pt's family was updated of their current status via sim packer.
--- NOTE | 2020-09-17 11:00 | XR_ITS ---
PROCEDURE: XR ANKLE LT MIN 3V CLINICAL INDICATION: Post op ankle COMPARISON: CR XR ANKLE RT MIN 3V from 06/23/2019 CR XR ANKLE LT 2V from 09/17/2020 FINDINGS: The presence of plastic cast limits evaluation. There is a surgical anchor projecting over the lateral malleolus, consistent with recent surgery. No other acute fractures or dislocations. Ankle mortise is intact. Bone density is normal. No significant soft tissue abnormality. IMPRESSION: Limited study due to the presence of plastic cast. Postsurgical changes. Dictated by: Olivia Diehl 09/17/2020 14:32 Olivia Diehl in [place] 09/17/2020 14:32
--- NOTE | 2020-09-17 11:48 | XR_ITS ---
PROCEDURE: XR ANKLE LT 2V CLINICAL INDICATION: PERONEAL TENDON REPAIR COMPARISON: CR XR ANKLE RT MIN 3V from 06/23/2019 FINDINGS: Single fluoroscopic image demonstrates surgical anchor projecting over the lateral malleolus. IMPRESSION: Surgical anchor projecting over the lateral malleolus. Dictated by: Olivia Diehl 09/17/2020 14:31 Olivia Diehl in [place] 09/17/2020 14:31
--- NOTE | 2020-09-17 12:06 | SUR.OPER ---
1205- family updated of patients current status via sim ho.
--- NOTE | 2020-09-17 12:27 | P.PN_ITS ---
[facility] Anesthesia Checklist - Patient Identification Patient Identification: Arm Band - Structural Data Admitted From: Home Planned Operative Procedure/s: Left Peroneal Tendon Repair and Debridement, Ankle Ligament Stabalization Consent for Planned Operative Procedure(s) Verified: Yes Verified Documents: Surgical Consent, History and Physical - Additional verifications Anesthesia Reactions: No Hx Blood Transfusions: No Blood Transfusion Reaction: No - Airway Assessment C-Spine Mobility Assessed: Yes (mp2) TMJ Mobility Assessed: Yes Dentition: Good Dentition - Neurological Assessment Level of Consciousness: Awake, Alert - Anesthesia Plan Anesthesia Risk discussed: Yes Anesthesia Plan: Verified ASA Class: II Anesthesia Type: General w/block (Popliteal/saphenous. Risks/benefit explained, pt verbalized understanding) [facility] History I have reviewed the patient's past medical history: Yes Medical History: Reports:: Hypertension Denies:: Cancer, Diabetes Mellitus Type 1, Diabetes Mellitus Type 2, MRSA, Seizures *Have you ever received a pneumonia vaccine?: No *Have you received a flu vaccine this season?: Yes Other Medical History: Denies: Blood Transfusion Reaction Anesthesia experience/problems:: nac Laterality Cases: Bilateral: Tonsillectomy, Other Other Surgeries: Yes: Cholecystectomy, Other Amputation: No Fractures: No - *Social History Smoking Status: Never smoker Alcohol Intake: current Alcohol Intake Frequency:: holidays/special occasions only Substance Use Type: denies use *Occupational Status:: employed Housing: house Household Members: spouse *Travel in the last 8 weeks: None Family Hx:: Cancer, Other
--- NOTE | 2020-09-17 12:29 | P.PN_ITS ---
[facility] Anesthesia Record Part I Intake, IV Amount: 1,700 Estimated blood loss (mL): 10 Urine output (mL): 0 Blood Pressure: 118/52 SaO2: 96 Pulse Rate: 100 Respiratory Rate: 16 Temperature: 98.1 F Patient is:: Drowsy, Stable Stable to PACU at:: 12:25
--- NOTE | 2020-09-17 13:48 | HMH.ANESII ---
[facility] Anesthesia Record Part II Discharge Time: 13:08 Destination: Surgical Day Care (OP Surgery) PACU nurse assessment reviewed?: Yes Patient Condition:: Good Anesthesia Complications:: None Swallowing reflex intact?: Yes Cyanosis?: No Blood Pressure: 120/68 Pulse Rate: 80 Temperature: 97 F Mental Status: Alert & Oriented Pain level:: 6 (back (chronic)) Nausea and/or vomitting:: None Intake, IV Amount: 0
== END 2020-09-17 14:18 | disposition home or self-care (01) ==
LOC: OR 07:58
PROVIDERS: PCP Family Medicine; Visit Provider Podiatrist
PROC: (CPT 27658; principal; 2020-09-17 09:30)
DX: S86.312A Strain of muscle(s) and tendon(s) of peroneal muscle group at lower leg level, left leg, initial encounter (principal); M25.372 Other instability, left ankle; S93.422A Sprain of deltoid ligament of left ankle, initial encounter; M76.822 Posterior tibial tendinitis, left leg; M21.6X2 Other acquired deformities of left foot; I10 Essential (primary) hypertension; S93.432A Sprain of tibiofibular ligament of left ankle, initial encounter; V88.8XXA Person injured in other specified noncollision transport accidents involving motor vehicle, nontraffic, initial encounter; Y92.89 Other specified places as the place of occurrence of the external cause; Y99.0 Civilian activity done for income or pay; M62.472 Contracture of muscle, left ankle and foot
CPT/HCPCS: 27658; 27687; 27626; 27695; 15275; 73600; 73610; 76000; 96374; C1762; J2405; Q4211

== ENCOUNTER → 2020-09-23 10:41 | Outpatient (CLI) | payer OTHER, SELFPAY ==
--- NOTE | 2020-09-23 10:46 | XR_ITS ---
PROCEDURE: XR ANKLE WT BEARING LT MIN 3V CLINICAL INDICATION: post-op pain r/t fall COMPARISON: CR XR ANKLE RT MIN 3V from 06/23/2019 CR XR FOOT LT MIN 3V from 08/29/2020 MR MR FOOT LT WO/W CON from 09/08/2020 CR XR ANKLE LT 2V from 09/17/2020 CR XR ANKLE LT MIN 3V from 09/17/2020 CR XR FOOT WT BEARING LT 3V from 09/23/2020 FINDINGS: Left ankle: Studies obtained through a cast. [place] screw once again noted at the distal fibula. Ankle mortise is preserved. No obvious fracture or dislocation. Left foot: No acute fracture or dislocation. There is a cast in place. There is good bony alignment. IMPRESSION: Good alignment with cast in place Dictated by: Alberto Dubose MD 09/23/2020 13:14 Alberto Dubose MD in [place] 09/23/2020 13:14
== END ==
PROVIDERS: PCP Family Medicine; Visit Provider Podiatrist
DX: Z98.890 Other specified postprocedural states (principal); S86.302D Unspecified injury of muscle(s) and tendon(s) of peroneal muscle group at lower leg level, left leg, subsequent encounter; W10.8XXA Fall (on) (from) other stairs and steps, initial encounter
CPT/HCPCS: 73610; 73630

== ENCOUNTER → 2020-10-28 18:14 | Outpatient (CLI) | payer OTHER, SELFPAY | PROVIDERS: Visit Provider Podiatrist | DX: T81.49XA Infection following a procedure, other surgical site, initial encounter (principal) | CPT/HCPCS: 87070; 87077; 87186; 87205 ==

== ENCOUNTER 2020-12-17 10:07 | Emergency (ER) | payer OTHER, SELFPAY ==
[2020-12-17 11:10] VITALS: BP 111/82; PULSE 70; RESP 16; TEMP 36.8; O2SAT 99; BMI 33.6
--- NOTE | 2020-12-17 11:23 | HMH.EDUTC ---
[facility] Disposition Clinical Impression: Tonsillitis Disposition: Home, Self-Care Condition on Discharge: Good Instructions: DI for Strep Throat Additional Instructions: COVID19 test pending Prescriptions: Amoxicillin [Amoxicillin 875MG Tab] 875 mg PO Q12H #20 tab Transmission Status: Pending to [facility] Referrals: Minh Pop MD [Primary Care Provider] - Time of Disposition: 11:30 Medical Decision Making - Jai Inquiry Pt receiving controlled substance: No Vital Signs: 12/17/20 11:10 Temperature 98.2 F Temperature Source Oral Pulse Rate [Right Brachial] 70 Respiratory Rate 16 Blood Pressure [right arm] 111/82 Blood Pressure Mean [right arm] 91 Blood Pressure Source [right arm] Automatic Cuff Blood Pressure Position [right arm] Sitting 02 Sat by Pulse Oximetry 99 Oxygen Delivery Method Room Air - Lab Data Lab results reviewed: Yes: I reviewed the patient's lab results. Orders (Tests/Meds): ORDERS Category Date Time Status Covid-19 Nasal PCR ([facility]) Routine Lab 12/17/20 11:08 Received [facility] HPI - General Stated complaint: sore throat, cough, chills, congestion Time Seen by Provider: 12/17/20 11:28 Mode of Arrival: Ambulatory Source of Information: Patient Limitations: No Limitations Description of Symptoms (Recalled from Triage Doc. by RN): sore throat. chills. runny nose HEENT Symptoms (Recalled from RN notes): Yes Resp Symptoms (Recalled from RN notes): Yes Skin Symptoms (Recalled from RN notes): No MS Symptoms (Recalled from RN notes): Yes Functional Status (Recalled from RN notes): yes - History of Present Illness Provider Complaint: Sore throat, chills, body aches, congestion X 3 days. Has had fever. Denies ear pain. Denies cough. No vomiting or diarrhea. Does have headache. No rash. No loss of taste or smell. No known sick exposures. Onset (ago): day(s) (3) Relieving factors: none Exacerbating factors: none Associated symptoms: fever/chills, headaches, malaise Treatments prior to arrival: NSAID - Related Data Home Medications Medication Instructions Recorded Confirmed allopurinol 100 mg tablet 300 mg PO DAILY tab 02/18/20 11/25/20 atomoxetine 18 mg capsule 18 mg PO DAILY cap 02/18/20 11/25/20 colchicine 0.6 mg tablet 0.6 mg PO DAILY tab 08/30/20 11/25/20 hydroCHLOROthiazide [HCTZ 25mg 25 mg PO .three times a week 09/14/20 11/25/20 tab] lisinopriL [Lisinopril 40mg Tablet] 40 mg PO DAILY 09/14/20 11/25/20 Previous Rx's Medication Instructions Recorded ondansetron 4 mg disintegrating 4 mg PO Q6H #30 tab 09/10/20 tablet gabapentin 100 mg capsule 100 mg PO TID 7 Days #21 cap 09/20/20 cyclobenzaprine 5 mg tablet 5 mg PO BID PRN 14 Days #30 tab 09/23/20 diazepam 5 mg tablet 5 mg PO TID PRN 7 Days #20 tab 09/23/20 oxycodone 10 mg tablet 10 mg PO Q4-6H PRN 7 Days #30 tab 09/23/20 ibuprofen 800 mg tablet 800 mg PO BID 30 Days #60 tab 10/28/20 mupirocin 2 % topical ointment 1 applic TOPICAL BID 30 Days #22 g 10/28/20 doxycycline hyclate 100 mg tablet 100 mg PO BID 14 Days #28 tab 11/02/20 hydrocodone 7.5 mg-acetaminophen 1 tab PO Q4-6H PRN 7 Days #30 tab 11/17/20 325 mg tablet Amoxicillin [Amoxicillin 875MG 875 mg PO Q12H #20 tab 12/17/20 Tab] Allergies Allergy/AdvReac Type Severity Reaction Status Date / Time No Known Allergies Allergy Verified 11/25/20 08:18 - Worker's Comp Is this a Worker's Comp case?: No Is this an H Worker's Comp?: No Is this a [place] Worker's Comp?: No [facility] History - Hepatitis A Screen Drug use history?: No High risk sexual behaviors?: No History of sexually transmitted infection?: No Currently employed?: No Childcare worker?: No Do you have indoor plumbing?: No Do you have electricity?: No Attestation statement:: This patient has been screened for Hepatitis A risk factors. I have reviewed the patient's past medical history: Yes Medical History: Reports:: Hypertension De
[2020-12-17 11:33] VITALS: BP 111/82; PULSE 70; RESP 16; TEMP 36.8
[2020-12-17 12:49] LABS: UTC Strep Screen (Rapid) Negative (Negative)
== END 2020-12-17 11:33 | disposition home or self-care (01) ==
PROVIDERS: Emergency Provider Physician Assistant; PCP Family Medicine
DX: J03.90 Acute tonsillitis, unspecified (principal); I10 Essential (primary) hypertension; Z20.822 Contact with and (suspected) exposure to COVID-19; Z79.899 Other long term (current) drug therapy
CPT/HCPCS: 87880; 99202; C9803; G0463; U0003; U0005

== ENCOUNTER → 2020-12-30 14:28 | Outpatient (CLI) | payer OTHER, SELFPAY ==
--- NOTE | 2020-12-30 14:30 | XR_ITS ---
PROCEDURE: XR FOOT WT BEARING LT 3V CLINICAL INDICATION: Worsening post-op COMPARISON: CR XR FOOT RT MIN 3V from 06/23/2019 CR XR FOOT LT MIN 3V from 08/29/2020 CR XR FOOT WT BEARING LT 3V from 09/23/2020 FINDINGS: No fracture or dislocation. No lytic or blastic change. There is normal mineralization. The joint spaces are well-preserved. No significant degenerative/arthritic changes. No erosive changes evident. Other findings:Small anchor screw is present at the tip of the lateral malleolus. IMPRESSION: Negative left foot Dictated by: Alberto Dubose MD 12/30/2020 15:58 Alberto Dubose MD in [place] 12/30/2020 15:58
== END ==
PROVIDERS: PCP Family Medicine; Visit Provider Podiatrist
DX: M79.672 Pain in left foot (principal); G89.18 Other acute postprocedural pain; Z98.890 Other specified postprocedural states
CPT/HCPCS: 73630

== ENCOUNTER → 2021-01-13 08:00 | Outpatient (CLI) | payer OTHER, SELFPAY ==
--- NOTE | 2021-01-13 08:00 | MR_ITS ---
PROCEDURE INFORMATION: Exam: MR Left Lower Extremity Joint Without Contrast; Ankle Exam date and time: 01/13/2021 8:00 AM Age: 45 years old Clinical indication: Pain; Ankle; Left; Prior surgery; Surgery date: 1-6 months; Additional info: Left ankle pain, injury TECHNIQUE: Imaging protocol: MR of the Left lower extremity without contrast. Exam focused on the ankle. COMPARISON: 1. CR XR ANKLE WT BEARING LT MIN 3V 09/23/2020 10:47 AM 2. CR XR ANKLE LT MIN 3V 09/17/2020 12:29 PM 3. SD XR ANKLE LT 2V 09/17/2020 11:45 AM FINDINGS: Bones and cartilage: There is a suture anchor in the distal fibula seen on prior radiographs that is producing susceptibility artifact. There is no acute fracture or dislocation. No aggressive bone lesions are present. There is no evidence of osteomyelitis. A large dorsal calcaneal enthesophyte is present. A benign bone island is incidentally noted. Joint spaces: A mild effusion involves the ankle joint. LIGAMENTS: Distal tibiofibular syndesmosis: Unremarkable. No tear. Anterior talofibular ligament: The anterior talofibular ligament is thin, consistent with prior low grade partial-thickness tear. Posterior talofibular ligament: The posterior talofibular ligament is thickened, consistent with prior low grade injury. Calcaneofibular ligament: The fibular attachment of the calcaneofibular ligament is presumed obscured by postoperative changes in this region. Deltoid ligament complex: Unremarkable. No tear. TENDONS: Flexor tendons of foot: Unremarkable as visualized. Tibialis posterior tendon: Mild tenosynovitis involves the tibialis posterior tendon. Peroneal tendons: The peroneus longus and brevis tendons are poorly delineated in the operative region recommend correlation with the type of surgery performed. The peroneal tendons proximal to the lateral malleolus and distal to the calcaneus up appear intact. Extensor tendons of foot: Unremarkable as visualized. Tibialis anterior tendon: Unremarkable. Achilles tendon: Unremarkable as visualized. Tarsal canal (Sinus tarsi): The sinus tarsi has normal fat signal. Tarsal tunnel: Unremarkable. Muscles: There is focal atrophy of the lumbrical muscle between the fourth and fifth metatarsals that could represent nerve injury (example series 7/image 2). Soft tissues: Normal postoperative micrometallic artifact is present along the lateral ankle/hindfoot. Plantar fascia: Unremarkable. IMPRESSION: 1. Poorly delineated peroneal tendons from the lateral malleolus through anterior calcaneus in the operative region. Recommend correlation with type of procedure performed. 2. Prior low-grade injuries of the anterior and posterior talofibular ligaments. 3. Focal atrophy of the lumbrical muscle between the fourth and fifth metatarsals potentially indicating nerve injury. 4. Mild tenosynovitis of the tibialis posterior tendon.
--- NOTE | 2021-01-13 08:00 | MR_ITS ---
PROCEDURE INFORMATION: Exam: MR Left Lower Extremity Other Than Joint Without and With Contrast; Foot Exam date and time: 01/13/2021 8:00 AM Age: 45 years old Clinical indication: Pain; Foot; Left; Prior surgery; Surgery date: 1-6 months; Additional info: Left foot pain, injury TECHNIQUE: Imaging protocol: MR of the Left lower extremity without and with intravenous contrast. Exam focused on the foot. Contrast material: ISOVUE; Contrast volume: 22 ml; Contrast route: IV; COMPARISON: 1. MR FOOT LT WO/W CON 09/08/2020 9:[address] FOOT LT WO CON 08/29/2020 10:55 AM 3. CR XR FOOT WT BEARING LT 3V 12/30/2020 2:59 PM 4. MR ANKLE LT WO CON 01/13/2021 8:19:11 AM FINDINGS: Bones and cartilage: There is no acute fracture or dislocation. No aggressive bone lesions are present. There is a large dorsal calcaneal enthesophyte. The longitudinal arch of the foot is high. Joint spaces: Mild effusions involve the great toe metatarsophalangeal and interphalangeal joint. LIGAMENTS: Lisfranc ligament: Unremarkable. No evidence of tear. TENDONS: Flexor tendons of foot: Unremarkable. No evidence of tear. Tibialis posterior tendon: Mild tenosynovitis involves the tibialis posterior tendon. Peroneal tendons: See accompanying ankle MRI. Extensor tendons of foot: Unremarkable. No evidence of tear. Tibialis anterior tendon: Unremarkable as visualized. Tarsal canal (Sinus tarsi): Unremarkable. Tarsal tunnel: Unremarkable. Muscles: There is focal atrophy of the lumbrical muscle between the fourth and fifth metatarsals that could indicate nerve injury. Soft tissues: Normal postoperative micrometallic artifact is present along the lateral ankle/hindfoot. Punctate foci of susceptibility artifact involving the plantar skin of the foot are most consistent with tiny imbedded foreign bodies that are typically of no clinical significance (series 3/images 28-36). There is normal increased soft tissue enhancement in the postoperative region of the lateral ankle/hindfoot. Plantar fascia: Unremarkable as visualized. Other findings: Please see dedicated ankle MRI for findings in the ankle/hindfoot region. IMPRESSION: 1. See dedicated ankle MRI regarding poorly delineated peroneal tendons from the lateral malleolus through anterior calcaneus in the operative region. 2. Focal atrophy of the lumbrical muscle between the fourth and fifth metatarsals potentially indicating nerve injury. 3. Mild tenosynovitis of the tibialis posterior tendon.
== END ==
PROVIDERS: PCP Family Medicine; Visit Provider Podiatrist
DX: M25.372 Other instability, left ankle (principal); M76.822 Posterior tibial tendinitis, left leg; S86.312A Strain of muscle(s) and tendon(s) of peroneal muscle group at lower leg level, left leg, initial encounter; Z98.890 Other specified postprocedural states; G89.18 Other acute postprocedural pain; S93.602A Unspecified sprain of left foot, initial encounter
CPT/HCPCS: 73720; 73721

== ENCOUNTER → 2021-01-27 11:14 | Outpatient (CLI) | payer OTHER, SELFPAY ==
--- NOTE | 2021-01-27 11:19 | XR_ITS ---
PROCEDURE: XR FOOT WT BEARING LT 3V CLINICAL INDICATION: LT ANKLE INSTABILITY COMPARISON: CR XR FOOT RT MIN 3V from 06/23/2019 CR XR FOOT LT MIN 3V from 08/29/2020 CR XR FOOT WT BEARING LT 3V from 09/23/2020 CR XR FOOT WT BEARING LT 3V from 12/30/2020 FINDINGS: No fracture or dislocation. No lytic or blastic change. There is normal mineralization. The joint spaces are well-preserved. No significant degenerative/arthritic changes. No erosive changes evident. Other findings:None. IMPRESSION: No acute findings. Dictated by: Alberto Dubose MD 01/27/2021 12:49 Alberto Dubose MD in [place] 01/27/2021 12:49
--- NOTE | 2021-01-27 11:19 | XR_ITS ---
PROCEDURE: XR ANKLE WT BEARING LT MIN 3V CLINICAL INDICATION: LT ANKLE INSTABILITY COMPARISON: CR XR ANKLE RT MIN 3V from 06/23/2019 CR XR ANKLE LT 2V from 09/17/2020 CR XR ANKLE LT MIN 3V from 09/17/2020 CR XR ANKLE WT BEARING LT MIN 3V from 09/23/2020 FINDINGS: There is an anchor screw present involving the distal aspect of the fibula.. Ankle mortise is preserved. Unremarkable talar dome. No fracture or dislocation. No lytic or blastic change. Small Achilles enthesophyte. IMPRESSION: Left fibular anchor screw with good alignment. Dictated by: Alberto Dubose MD 01/27/2021 12:51 Alberto Dubose MD in [facility] 01/27/2021 12:51
--- NOTE | 2021-01-27 11:19 | XR_ITS ---
PROCEDURE: XR CALCANEUS LT MIN 2V CLINICAL INDICATION: LT ANKLE INSTABILITY COMPARISON: No exams were available for comparison FINDINGS: No fracture or dislocation. No lytic or blastic change. There is normal mineralization. The joint spaces are well-preserved. No significant degenerative/arthritic changes. No erosive changes evident. Other findings:There is a small Achilles enthesophyte. The calcaneus and subtalar joints have an unremarkable appearance. IMPRESSION: Negative left calcaneus Dictated by: Alberto Dubose MD 01/27/2021 12:50 Alberto Dubose MD in [place] 01/27/2021 12:50
[2021-01-27 13:03] LABS: Basophils # 0.1 K/mm3 (0-0.2); Basophils % 0.6 % (0.1-2.0); Eosinophils # 0.1 K/mm3 (0.0-0.4); Eosinophils % 0.9 % (0.1-12.0); Hematocrit 41.7 % (42.0-52.0); Hemoglobin 14.4 g/dL (14.1-18.0); Lymphocytes # 1.6 K/mm3 (0.7-4.5); Lymphocytes % 16.6 % (10-50); Mean Corpuscular HGB Conc 34.5 g/dL (31.8-35.4); Mean Corpuscular Hemoglobin 30.4 pg (27.0-31.2); Mean Platelet Volume 7.4 fl (7.4-10.4); Monocytes # 0.2 K/mm3 (0.1-1.0); Monocytes % 2.5 % (1.7-9.3); Neutrophils # 7.5 K/mm3 (1.8-7.8); Neutrophils % 79.4 % (37.0-80.0); Platelet Count 360 K/mm3 (142-424); Red Blood Count 4.75 M/mm3 (4.60-6.20); Red Cell Distribution Width 13.9 % (11.5-17.5); White Blood Count 9.5 K/mm3 (4.8-10.8)
[2021-01-27 13:33] LABS: Chloride 101 mmol/L (98-107); Potassium 5.5 mmoL/L (3.5-5.1); Sodium 138 mmol/L (136-145)
[2021-01-27 13:36] LABS: Alanine Aminotransferase 52 U/L (12-78); Albumin Level 4.8 g/dl (3.5-5.0); Albumin/Globulin Ratio 1.7 (1.1-1.8); Alkaline Phosphatase 90 U/L (38-126); Anion Gap 14.5 mEq/L (5-15); Aspartate Amino Transferase 34 U/L (17-59); Bilirubin,Total 0.2 mg/dl (0.2-1.3); Blood Urea Nitrogen 19 mg/dl (9-20); Calcium 10.3 mg/dl (8.4-10.2); Carbon Dioxide 28 mmol/L (22.0-30.0); Estimated Glomerular Filt Rate 105 ml/min (>60); GFR (African American) 127 ML/MIN (>60); Globulin 2.9 g/dL (1.3-3.2); Glucose 102 mg/dl (74-100); Total Protein,Serum 7.7 g/dl (6.3-8.2)
== END ==
PROVIDERS: PCP Family Medicine; Visit Provider Podiatrist
DX: S86.312A Strain of muscle(s) and tendon(s) of peroneal muscle group at lower leg level, left leg, initial encounter (principal); M25.372 Other instability, left ankle; M79.672 Pain in left foot
CPT/HCPCS: 36415; 73610; 73630; 73650; 80053; 85025

== ENCOUNTER → 2021-02-08 09:59 | Outpatient (CLI) | payer OTHER, SELFPAY | PROVIDERS: Visit Provider Podiatrist | DX: Z01.812 Encounter for preprocedural laboratory examination (principal); Z11.52 Encounter for screening for COVID-19; S84.12XA Injury of peroneal nerve at lower leg level, left leg, initial encounter; M25.572 Pain in left ankle and joints of left foot; M25.372 Other instability, left ankle | CPT/HCPCS: C9803; U0003; U0005 ==

== ENCOUNTER 2021-02-10 09:00 | Day surgery (SDC) | payer OTHER, SELFPAY ==
[2021-02-07 11:51] VITALS: BMI 33.0
[2021-02-10] VITALS (13 sets, daily range): BP systolic 106–126; BP diastolic 50–82; PULSE 78–97; RESP 12–18; TEMP 36.2–43; O2SAT 90–97
--- NOTE | 2021-02-10 11:33 | P.PN_ITS ---
[facility] Anesthesia Checklist - Patient Identification Patient Identification: Arm Band - Structural Data Admitted From: Home Planned Operative Procedure/s: Peroneal tendon repair Consent for Planned Operative Procedure(s) Verified: Yes - NPO Status Verified Time NPO: 00:00 - Additional verifications Anesthesia Reactions: No Hx Blood Transfusions: No Blood Transfusion Reaction: No - Airway Assessment C-Spine Mobility Assessed: Yes TMJ Mobility Assessed: Yes Dentition: Good Dentition - Neurological Assessment Level of Consciousness: Awake Hx Seizures: No Numbness or tingling in extremities: No - Anesthesia Plan Anesthesia Risk discussed: Yes Anesthesia Plan: Verified ASA Class: II Anesthesia Type: General w/block [facility] History I have reviewed the patient's past medical history: Yes Medical History: Reports:: Hypertension, MRSA Denies:: Cancer, Diabetes Mellitus Type 1, Diabetes Mellitus Type 2, Internal Pacemaker, Seizures *Have you ever received a pneumonia vaccine?: No *Have you received a flu vaccine this season?: No Other Medical History: Denies: Blood Transfusion Reaction Anesthesia experience/problems:: None Laterality Cases: Bilateral: Tonsillectomy, Other Other Surgeries: Yes: No Previous Surgery, Cholecystectomy, Other. No: Pacemaker Amputation: No Fractures: No - *Social History Last grade of school completed: Some college Smoking Status: Never smoker Alcohol Intake: current Alcohol Intake Frequency:: holidays/special occasions only Substance Use Type: denies use *Occupational Status:: employed Housing: house Household Members: spouse *Travel in the last 8 weeks: None Family Hx:: Bleeding Disorder, Cancer, Coronary Artery Disease, Stroke
--- NOTE | 2021-02-10 14:05 | SUR.OPER ---
1258-updated pt's per DaronRN 8095-updated pt's per GiovaniRN
--- NOTE | 2021-02-10 15:08 | XR_ITS ---
PROCEDURE: XR FOOT LT 2V CLINICAL INDICATION: C- ARM CASE COMPARISON: CR XR FOOT LT MIN 3V from 08/29/2020 CR XR FOOT WT BEARING LT 3V from 09/23/2020 CR XR FOOT WT BEARING LT 3V from 12/30/2020 CR XR FOOT WT BEARING LT 3V from 01/27/2021 FINDINGS: Fluoroscopy time: 1.48 minutes. No new status post osteotomy of the mid aspect of the calcaneus with 2 lag screws placed. A dorsal stable is noted at the proximal metatarsal region. IMPRESSION: Status post right foot surgery with C-arm assistance. Dictated by: Alberto Dubose MD 02/10/2021 16:19 Alberto Dubose MD in [place] 02/10/2021 16:19
--- NOTE | 2021-02-10 15:35 | SUR.OPER ---
1536-updated pt's at this time
--- NOTE | 2021-02-10 16:00 | XR_ITS ---
PROCEDURE INFORMATION: Exam: XR Left Foot Exam date and time: 02/10/2021 4:00 PM Age: 45 years old Clinical indication: Device placement; Other: Post op; Additional info: Post op ankle TECHNIQUE: Imaging protocol: XR Left foot. Views: 3 or more views. Total images: 3 COMPARISON: SD XR FOOT LT 2V 02/10/2021 3:08 PM FINDINGS: Tubes, catheters and devices: There are 2 cannulated screws in the posterior calcaneal tubercle without gross hardware complication. [place] screw at the lateral malleolus. Bones/joints: Proximal 1st metatarsal osteotomy with dorsal staple fixation. Slight apex posterior angulation of approximately 10 degrees at the osteotomy with about 2.5 mm plantar displacement of the distal fragment. No evidence of hardware breakage or displacement. Soft tissues: Limited soft tissue assessment, obscured by plaster cast. No retained foreign bodies are evident. Other findings: Plaster cast obscures detail. IMPRESSION: Postoperative changes detailed above.
--- NOTE | 2021-02-10 16:00 | XR_ITS ---
PROCEDURE INFORMATION: Exam: XR Left Calcaneus Exam date and time: 02/10/2021 4:00 PM Age: 45 years old Clinical indication: Device placement; Other: Post op TECHNIQUE: Imaging protocol: XR of the Left calcaneus. Views: 2 or more views. Total images: 2 COMPARISON: CR XR CALCANEUS LT MIN 2V 01/27/2021 11:38 AM FINDINGS: Tubes, catheters and devices: Plaster splint in place, obscuring detail. There are 2 cannulated screws in the posterior calcaneal tubercle without gross hardware complication. Bones/joints: [place] screw in the lateral malleolus. Approximately 2.5 cm curvilinear hyperdense structure projects near the retro trochlear eminence along the lateral calcaneal margin, possibly extrinsic padding or bandage material or might relate to calcaneofibular ligamentous reconstruction, correlate with operative history. Soft tissues: Soft tissues largely obscured by overlying splint material. IMPRESSION: 1. Postoperative changes detailed above. 2. 2.5 cm curvilinear hyperdense structure projects near the retro trochlear eminence along the lateral calcaneal margin, possibly extrinsic padding or bandage material, or possibly related to lateral ligamentous reconstruction, correlate with operative history.
--- NOTE | 2021-02-10 16:52 | SUR.OPER ---
3103-updated pt's at this time
--- NOTE | 2021-02-10 17:35 | HMH.ANESI ---
[facility] Anesthesia Record Part I Intake, IV Amount: 1,500 Estimated blood loss (mL): 25 Urine output (mL): 700 Blood Pressure: 110/58 SaO2: 95 Pulse Rate: 91 Respiratory Rate: 12 Temperature: 98 F Patient is:: Awake, Stable Stable to PACU at:: 17:25
--- NOTE | 2021-02-10 17:38 | SUR.PHASEI ---
3043-radiology and MD at bedside
--- NOTE | 2021-02-10 17:41 | HMH.OPNOTE ---
Date of procedure: 02/10/21 Pre-op Diagnosis:: 1. Tear of peroneal tendon of left foot 2. Tear peroneal tendon left ankle 3. Injury of left peroneal nerve 4. Pes cavus of left foot 5. Left ankle pain 6. Left ankle synovitis 7. Hx of MRSA 8. Obesity (BMI 30.0-34.9) Post-op Diagnosis:: Same Procedure performed:: 1. Left peroneal tendon debridement and repair x2 2. Left peroneus brevis to longus anatomosis 3. Left open direct repair of ATFL/extensor retinaculum 4. Left lateral (Sanchez) calcaneal osteotomy 5. Left 1st metatarsal DFWO 6. Left ankle/STJ synovectomy 7. Application of graft (Graftjacket and amniotic tissue) 8. Application of RUPA drain 9. Application of splint Surgeon:: Laura Hamm DPM HOBBER:: Judy Carmona Anesthesia: GETA, regional (left popliteal nerve block) Estimated blood loss (mL): 50 Clinical Note:: 45M had surgery 09/17/20 for left ankle instability and peroneal tendon tear. He had a fall during post op. During PT, patient heard pop and had worsening pain. He has tried immobilization, modification of shoe gear, strapping, inserts, ice, elevation, NSAIDs, ankle bracing and physical therapy. After a long discussion with the patient in regards to the conservative versus surgical treatment for the tendon tear/deformity, the patient has elected to proceed with surgery because they have failed conservative treatment and continue to have pain and worsening symptoms affecting daily activities. The patient has been instructed on the planned procedure, all risk versus benefits of the procedure discussed. These include but are not limited to: bleeding, infection, nerve and blood vessel damage, need for further surgery, delay in healing of soft tissue or bone, tendon re-rupture, failure of bones to heal, non-union, mal-union, failure of the implant, prolonged pain and recovery, CPRS/RSD, DVT and anesthetic complications. No guarantees were given. All questions fully answered. The patient verbalized understanding and agreed to proceed with surgery. Written consent was obtained. Operative findings:: Suture noted from prior peroneal tendon repairs. The peroneus longus tendon was torn and shredded at the level of the distal fibula and extended several centimeters more proximal. The peroneus brevis had shredding and tearing noted distal to the fibula and at the insertion on the fifth metatarsal base. Extensor retinaculum over the ATFL was torn. Pes cavus deformity noted with plantarflexed first ray. No evidence of infection. Synovitis noted to the subtalar and ankle joints. There was a significant amount of fibrosis and scarring down on the lateral foot and ankle. Use modifier: This case took approximately 1.5 hours longer than normal due to the revisional nature of the surgery, patient's large body habitus and subcutaneous fat, fibrotic scar tissue requiring more extensive dissection and extensive nature of the tendon rupture which warranted Pulvertaft weaving, anastomosis, bone anchor and cadaver grafting. Operative note:: On this date and time patient was deemed an appropriate surgical candidate. With informed consent signed, the patient was taken to the operating theater. The patient was positioned supine. General anesthesia was induced. Tourniquet was applied to the left thigh. The lower extremity was prepped and draped in normal sterile fashion. 2g IV Ancef and 900 mg clindamycin given. Left peroneal tendon debridement and repair x2, peroneus brevis to longus anatomosis: Attention was directed to the lateral ankle where intra-op fluoroscopy was utilized to bay anatomical landmarks. A linear incision was made distal to the lateral ankle and extending over the distal fibula on the previous incision site. Dissection was carried thru skin and subcutaneous tissue with care taken to maintain surgical hemostasis and safely retract neurovascular structures. There is a significant mount of fibrosis and scarring of the tissue layers. Dissection wa
--- NOTE | 2021-02-10 18:10 | PC.NURSE ---
1750-bedside report given to NICKY Page 1754-pt transported to post op via stretcher w/jatin rails up and left in care of NICKY Page with bed locked in lowest position, vss, pt stable
[2021-02-10 18:27] LABS: Microscopic,Cath URINE MICROSCOPIC (MICROSCOPIC)
[2021-02-10 18:33] LABS: Appearance,Urine/Cath CLEAR (Clear); Bilirubin,Cath Negative (Negative); Blood, Urine/Cath Negative (Negative); Color,Urine/Cath YELLOW (Yellow); Glucose,Urine/Cath (UA) Negative (Negative); Ketones,Urine/Cath Negative (Negative); Leukocyte Esterase,Cath Negative (Negative); Nitrate,Cath Negative (Negative); PH,Urine/Cath 6.5 (5.0-8.5); Protein,Urine/Cath Negative (Negative); Urobilinogen,Cath 0.2 EU/dl (0.2)
--- NOTE | 2021-02-10 19:07 | SUR.PHASEII ---
1839- thais drain emptied 20cc bloody drainage 1844- pt continues to c/o nausea phenergan given as directed
--- NOTE | 2021-02-11 13:15 | P.PN_ITS ---
[facility] Anesthesia Record Part II Discharge Time: 18:55 Destination: [facility] PACU nurse assessment reviewed?: Yes Patient Condition:: Good Anesthesia Complications:: None Swallowing reflex intact?: Yes Cyanosis?: No Blood Pressure: 115/63 Pulse Rate: 94 Temperature: 97.2 F Mental Status: Alert & Oriented Pain level:: 0 Nausea and/or vomitting:: None Intake, IV Amount: 2,500
[2021-02-11 13:16] VITALS: BP 115/63; PULSE 94; TEMP 36.2
== END 2021-02-10 19:25 | disposition home or self-care (01) ==
LOC: OR 09:01
PROVIDERS: PCP Family Medicine; Visit Provider Podiatrist
PROC: (CPT 27698; principal; 2021-02-10 10:30)
DX: M25.372 Other instability, left ankle (principal); S86.312A Strain of muscle(s) and tendon(s) of peroneal muscle group at lower leg level, left leg, initial encounter; M76.822 Posterior tibial tendinitis, left leg; W10.9XXA Fall (on) (from) unspecified stairs and steps, initial encounter; Z91.81 History of falling; S93.492A Sprain of other ligament of left ankle, initial encounter; S96.812A Strain of other specified muscles and tendons at ankle and foot level, left foot, initial encounter
CPT/HCPCS: 27698; 28300; 15275; 28070; 73620; 73630; 73650; 76000; 81001; 96374; C1713; C1762; J2405; Q4107; Q4211

== ENCOUNTER → 2021-03-18 11:04 | Outpatient (CLI) | payer OTHER, SELFPAY ==
--- NOTE | 2021-03-18 11:09 | XR_ITS ---
FINAL REPORT CLINICAL HISTORY: postop views FINDINGS: LEFT CALCANEUS Two views demonstrate no acute fracture or dislocation. There are postoperative changes from calcaneal osteotomy with 2 screws present. There is a screw in the lateral malleolus. IMPRESSION: Postsurgical changes without acute bony abnormality. Reviewed, Interpreted and Dictated by Isaac Varner III, MD Transcribed by Dayana Soler Authenticated by Isaac Varner III, MD on 03/18/2021 12:32:37 PM [facility]
--- NOTE | 2021-03-18 11:09 | XR_ITS ---
FINAL REPORT CLINICAL HISTORY: postop views COMPARISON: 02/10/2021 FINDINGS: LEFT FOOT Three views demonstrate no acute fracture or dislocation. There are postoperative changes of the proximal first metatarsal, calcaneus, and lateral malleolus. The bony alignment appears stable. IMPRESSION: Postsurgical changes. Reviewed, Interpreted and Dictated by Isaac Varner III, MD Transcribed by Dayana Soler Authenticated by Isaac Varner III, MD on 03/18/2021 12:32:19 PM [facility]
== END ==
PROVIDERS: PCP Family Medicine; Visit Provider Podiatrist
DX: Z98.890 Other specified postprocedural states (principal); M79.672 Pain in left foot
CPT/HCPCS: 73630; 73650

== ENCOUNTER → 2021-04-27 08:41 | Outpatient (CLI) | payer OTHER, SELFPAY ==
[2021-04-27 12:48] LABS: Albumin Level 4.6 g/dl (3.5-5.0); Albumin/Globulin Ratio 1.7 (1.1-1.8); Anion Gap 14.4 mEq/L (5-15); Aspartate Amino Transferase 29 U/L (17-59); Bilirubin,Total 0.6 mg/dl (0.2-1.3); Blood Urea Nitrogen 22 mg/dl (9-20); Calcium 9.7 mg/dl (8.4-10.2); Carbon Dioxide 26 mmol/L (22.0-30.0); Chloride 102 mmol/L (98-107); Chol/HDL Ratio 3.6 (1-3.5); Cholesterol 154 mg/dl (140-200); Estimated Glomerular Filt Rate 91 ml/min (>60); GFR (African American) 110 ML/MIN (>60); Globulin 2.7 g/dL (1.3-3.2); Glucose 86 mg/dl (74-100); HDL Cholesterol 43 mg/dl (40-60); Potassium 5.4 mmoL/L (3.5-5.1); Sodium 137 mmol/L (136-145); Total Protein,Serum 7.3 g/dl (6.3-8.2); Triglycerides 124 mg/dl (30-150); Uric Acid 4.7 mg/dl (3.5-8.5); VLDL Cholesterol 25 mg/dL (0-40)
[2021-04-27 12:59] LABS: Direct LDL Cholesterol 80.38 mg/dL (100-129)
[2021-04-27 13:35] LABS: Alanine Aminotransferase 47 U/L (12-78); Alkaline Phosphatase 88 U/L (38-126)
== END ==
PROVIDERS: Visit Provider Family Medicine
DX: I10 Essential (primary) hypertension (principal); E79.0 Hyperuricemia without signs of inflammatory arthritis and tophaceous disease
CPT/HCPCS: 36415; 80053; 80061; 84550

== ENCOUNTER → 2021-04-27 08:46 | Outpatient (CLI) | payer OTHER, SELFPAY ==
--- NOTE | 2021-04-27 08:56 | XR_ITS ---
FINAL REPORT CLINICAL HISTORY: POSTOP VIEWS...heel psin COMPARISON: March 18, 2021 FINDINGS: LEFT CALCANEUS 2 views were obtained. There are postoperative changes in the calcaneus with osteotomy and 2 orthopedic screws. Postoperative changes are seen in the lateral malleolus. There is a posterior calcaneal spur. There is probable partial bony fusion. IMPRESSION: Postoperative changes as above, similar to prior. Reviewed, Interpreted and Dictated by Isaac Varner III, MD Transcribed by Tee Turcios Authenticated by Isaac Varner III, MD on 04/27/2021 11:17:46 AM [facility]
--- NOTE | 2021-04-27 08:56 | XR_ITS ---
FINAL REPORT CLINICAL HISTORY: POSTOP VIEWS...pain COMPARISON: March 18, 2021 FINDINGS: LEFT FOOT: Three views of the left foot were obtained. There is postoperative change at the proximal 1st metatarsal with presumed osteotomy. There is postoperative change in the calcaneus and lateral malleolus. Bony alignment stable. There is no significant callus formation at the osteotomy site. There are no new abnormalities. IMPRESSION: Postoperative changes as above. Reviewed, Interpreted and Dictated by Isaac Varner III, MD Transcribed by Tee Turcios Authenticated by Isaac Varenr III, MD on 04/27/2021 11:17:42 AM [facility]
== END ==
PROVIDERS: PCP Family Medicine; Visit Provider Physician Assistant
DX: Q66.72 Congenital pes cavus, left foot (principal); Z98.890 Other specified postprocedural states; G89.18 Other acute postprocedural pain
CPT/HCPCS: 73630; 73650

== ENCOUNTER → 2021-07-01 08:36 | Outpatient (CLI) | payer OTHER, SELFPAY ==
--- NOTE | 2021-07-01 08:38 | XR_ITS ---
FINAL REPORT CLINICAL HISTORY: POSTOP VIEWS f/u lt foot COMPARISON: April 27, 2021 FINDINGS: Two weight-bearing views of the left foot were obtained. There are 2 orthopedic screws in the calcaneus securing healed osteotomy. A single screw fragment is seen in the posterior talus. IMPRESSION: Stable postoperative changes. Reviewed, Interpreted and Dictated by Guicho Vines MD Transcribed by Tee Turcios Authenticated by Guicho Vines MD on 07/01/2021 10:12:41 AM [facility]
--- NOTE | 2021-07-01 08:38 | XR_ITS ---
FINAL REPORT CLINICAL HISTORY: POSTOP VIEWS f/u lt foot COMPARISON: April 27, 2021 FINDINGS: 3 weight-bearing views of the left foot were obtained. There are 2 orthopedic screws in the calcaneus securing healed osteotomy. A single screw fragment is seen in the posterior talus. There is an orthopedic staple scaring healed osteotomy of the proximal 1st metatarsal. IMPRESSION: Stable postoperative changes. Reviewed, Interpreted and Dictated by Guicho Vines MD Transcribed by Tee Turcios Authenticated by Guicho Vines MD on 07/01/2021 10:12:[address] [facility]
== END ==
PROVIDERS: PCP Podiatrist; Visit Provider Podiatrist
DX: Q66.72 Congenital pes cavus, left foot (principal); Z98.890 Other specified postprocedural states
CPT/HCPCS: 73630; 73650

== ENCOUNTER → 2021-08-05 14:27 | Outpatient (CLI) | payer OTHER, SELFPAY ==
--- NOTE | 2021-08-05 14:31 | CT_ITS ---
FINAL REPORT CLINICAL HISTORY: EVALUATE BONE HEALING COMPARISON: Plain radiographs July 01, 2021 FINDINGS: Axial CT images of the left foot were obtained without contrast. Sagittal and coronal reformatted images were also obtained.This study was performed with techniques to keep radiation doses as low as reasonably achievable (ALARA). Individualized dose reduction techniques using automated exposure control or adjustment of mA and/or kV according to the patient''s size were employed. Postoperative changes are again seen involving the calcaneus, the lateral malleolus and the proximal first metatarsal. There is bony union at the calcaneal osteotomy site, although the osteotomy is still visible in some locations especially at the periphery. There is partial bony union of the proximal first metatarsal osteotomy site, with bony union seen along its superior aspect. The osteotomy is largely visible without bony union. Postoperative changes are also noted in the lateral malleolus. A small calcification is seen inferior to the lateral malleolus. IMPRESSION: Evidence of bony union at the calcaneal osteotomy site. Area of bony union involving the superior aspect of the proximal first metatarsal osteotomy site, with lack of bony union involving much of the remainder of the osteotomy. Postoperative changes lateral malleolus. Authenticated and ERN
== END ==
PROVIDERS: PCP Family Medicine; Visit Provider Podiatrist
DX: Z98.890 Other specified postprocedural states (principal); M96.89 Other intraoperative and postprocedural complications and disorders of the musculoskeletal system
CPT/HCPCS: 73700

== ENCOUNTER → 2021-09-08 14:09 | Outpatient (POV) | payer OTHER, SELFPAY ==
[2021-09-08 14:47] VITALS: BP 115/74; PULSE 85; RESP 20; TEMP 36.4; O2SAT 97; BMI 34.2
--- NOTE | 2021-09-08 15:45 | HMH.PMCON ---
Assessment and Plan (1) Bilateral leg numbness Status: Acute Category: Medical Code(s): R20.0 - Anesthesia of skin (2) Low back pain Status: Acute Category: Medical Code(s): M54.50 - Low back pain, unspecified (3) Left foot pain Status: Acute Category: Medical Code(s): M79.672 - Pain in left foot (4) Sacroiliac pain Status: Acute Category: Medical Code(s): M53.3 - Sacrococcygeal disorders, not elsewhere classified - Assessment and plan all Dx Assessment and Plan for all problems:: Patient presents today as a new patient. His chief complaints are chronic low back pain, bilateral lower extremity pain, sacroiliac pain and left foot pain. He has had at least 2 medial branch blocks and a RFA for his chronic low back pain. Patient has tried failed oral medications, injective therapy, physical therapy. patient has a intractable left foot pain that has had multiple surgeries since a lawnmower accident. This is consistent with CRPS type symptoms. I have discussed with the patient regarding a spinal cord stimulator trial and placement. Risk and benefits have been discussed. We will start the patient for a work-up for a spinal cord stimulator. Patient will be scheduled for a psych evaluation today. He will return to clinic following this evaluation. Patient has been instructed to contact the clinic with any concerns before the next appointment. Dr. Ortiz has reviewed this note and agrees with this plan of care. This note was dictated using voice recognition software and make contain errors or omissions. HPI - Data of Consult Patient: new to practice Consult date: 09/08/21 Requesting Physician: MARISOL Blair Primary Care Provider: Dr. Kenrick Wood - Consult Narrative Reason for consult: low back pain, sacroiliac pain, BLE numbness, left foot pain History of present illness: Mr. Victor is a 46 year old male presents today as a new patient. He is a referral from Dr. Kenrick Wood. He has a history of low back pain, sacroiliac pain, left foot pain. 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 He has had his L5-S1 fused about 4 years ago. He states that he also has sacroiliac issues bilaterally. He states he also had a lawnmower accident in 2020 which is caused him to have multiple left foot surgeries and has a lot of residual pain. He has tried injective therapy at [facility] in the past including medial branch block injections and radiofrequency ablation. His last procedure was about 4 to 5 months ago where he did have the medial branch block RFA. He states that he did get significant relief, 70%, from this procedure however the medial branch block themselves only gave minimal relief. He also states he has a clicking sensation in his right back. He finds it hard to sleep or do activities of daily living due to his pain. He states he has numbness and burning in both bilateral lower extremities. He has been off work for over a year and just recently went back last month. He states he has tried [id number] Tylenol and ibuprofen and muscle relaxers as needed with minimal relief. He states he is on permanent light duty. He has tried and failed conservative therapies such as physical therapy oral medications, home stretching and exercise therapy for more than 6 weeks. He is interested in pursuing a spinal cord stimulator. His Jai is [id number]. Is been reviewed and is appropriate. CC: MARISOL Blair [facility] History I have reviewed the patient's past medical history: Yes Medical History: Reports:: Hypertension, MRSA Denies:: Cancer, Diabetes Mellitus Type 1, Diabetes Mellitus Type 2, Internal Pacemaker, Seizures *Have you ever received a pneumonia vaccine?: No *Have you received a flu vaccine this season?: No Other Medical History: Reports: Arthritis. Denies: Blood Transfusion Reaction Laterality Cases: Bilateral: Tonsillectomy, Other Other S
== END ==
PROVIDERS: Visit Provider Student in an Organized Health Care Education/Training Program
DX: M53.3 Sacrococcygeal disorders, not elsewhere classified (principal); M54.50 Low back pain, unspecified; M79.672 Pain in left foot; R20.0 Anesthesia of skin
CPT/HCPCS: 99202; G0463

== ENCOUNTER → 2021-10-10 11:21 | Outpatient (CLI) | payer OTHER, SELFPAY ==
--- NOTE | 2021-10-10 11:23 | XR_ITS ---
FINAL REPORT CLINICAL HISTORY: PAIN COMPARISON: 07/01/2021 FINDINGS: LEFT FOOT Three views of the left foot demonstrate no acute fracture or dislocation. There are postoperative changes of the proximal 1st metatarsal with a staple present. There is interval healing at the osteotomy site. There are mild degenerative changes. The visualized joint spaces are normally aligned. The soft tissues are unremarkable. IMPRESSION: Postoperative and degenerative change as described. Reviewed, Interpreted and Dictated by Isaac Varner III, MD Transcribed by Rosa Isela Lind Authenticated and [facility]
--- NOTE | 2021-10-10 11:23 | XR_ITS ---
FINAL REPORT CLINICAL HISTORY: PAIN COMPARISON: 01/27/2021 FINDINGS: LEFT ANKLE Three views of the left ankle were obtained. There is no acute fracture or dislocation. There are postoperative changes of the lateral malleolus. There are interval postoperative change from calcaneal osteotomy with calcaneal screws present. There are also interval postoperative changes of the medial midfoot. There is no soft tissue abnormality. IMPRESSION: Postoperative changes as described. Reviewed, Interpreted and Dictated by Isaac Varner III, MD Transcribed by Rosa Isela Lind Authenticated and . [facility]
== END ==
PROVIDERS: PCP Family Medicine; Visit Provider Podiatrist
DX: Z98.890 Other specified postprocedural states (principal); M25.572 Pain in left ankle and joints of left foot
CPT/HCPCS: 73610; 73630

== ENCOUNTER → 2021-11-25 14:13 | Outpatient (CLI) | payer OTHER, SELFPAY ==
--- NOTE | 2021-11-25 14:14 | MR_ITS ---
FINAL REPORT TECHNIQUE: Multiplanar MRI without gadolinium enhancement CLINICAL HISTORY: pain left ankle pian prior hx 2 sx on ankle last one was 02/10/21 lateral sided ankle pain feels like stabbing pains on lateral side of ankle no recent injury/trauma FINDINGS: Articular cartilage: No focal osteochondral defect Marrow signal: Hardware artifact associated with postoperative change of the calcaneus. Healed osteotomy. Remaining osseous structures unremarkable. Joint fluid: Physiologic. Tendons: Postoperative change of the peroneal tendons. Increased signal in the peroneal tendons proximal to the lateral malleolus is likely postoperative or tendinosis. No evidence of tear Ligaments: Non visualization of the anterior talofibular ligament compatible with remote tear. Tibial fibular and posterior talofibular ligaments unremarkable. Plantar fascia: No evidence of tear or fasciitis. IMPRESSION: No acute findings. Anterior talofibular ligament tear presumably chronic. Postoperative change of intact peroneal tendons. No acute osseous abnormality. Reviewed, Interpreted and Dictated by Meghan Manzo MD Transcribed by Tee Turcios Authenticated and [facility]
== END ==
PROVIDERS: PCP Family Medicine; Visit Provider Podiatrist
DX: M62.838 Other muscle spasm (principal); M76.62 Achilles tendinitis, left leg; M76.72 Peroneal tendinitis, left leg; S93.602D Unspecified sprain of left foot, subsequent encounter
CPT/HCPCS: 73721

== ENCOUNTER 2021-12-09 06:02 | Day surgery (SDC) | payer OTHER, SELFPAY ==
[2021-12-09 06:17] VITALS: BMI 33.6
[2021-12-09 06:20] VITALS: BP 117/72; PULSE 64; RESP 18; TEMP 36.1; O2SAT 100
[2021-12-09 06:35] LABS: Basophils # 0.1 K/mm3 (0-0.2); Basophils % 0.8 % (0.1-2.0); Eosinophils # 0.3 K/mm3 (0.0-0.4); Eosinophils % 2.7 % (0.1-12.0); Hematocrit 42.4 % (42.0-52.0); Hemoglobin 13.9 g/dL (14.1-18.0); Lymphocytes # 2.4 K/mm3 (0.7-4.5); Lymphocytes % 21.9 % (10-50); Mean Corpuscular HGB Conc 32.9 g/dL (31.8-35.4); Mean Corpuscular Hemoglobin 29.6 pg (27.0-31.2); Mean Platelet Volume 8.2 fl (7.4-10.4); Monocytes # 0.5 K/mm3 (0.1-1.0); Monocytes % 4.1 % (1.7-9.3); Neutrophils # 7.8 K/mm3 (1.8-7.8); Neutrophils % 70.6 % (37.0-80.0); Platelet Count 356 K/mm3 (142-424); Red Blood Count 4.72 M/mm3 (4.60-6.20); Red Cell Distribution Width 14.3 % (11.5-17.5)
[2021-12-09 06:39] LABS: Chloride 101 mmol/L (98-107); Potassium 4.8 mmoL/L (3.5-5.1); Sodium 135 mmol/L (136-145)
[2021-12-09 06:42] LABS: Anion Gap 13.8 mEq/L (5-15); Blood Urea Nitrogen 16 mg/dl (9-20); Calcium 8.9 mg/dl (8.4-10.2); Carbon Dioxide 25 mmol/L (22.0-30.0); Creatinine Clearance Estimated 191 mL/min (50-200); Estimated Glomerular Filt Rate 105 ml/min (>60); GFR (African American) 126 ML/MIN (>60); Glucose 92 mg/dl (74-100)
--- NOTE | 2021-12-09 08:24 | P.PN_ITS ---
[facility] Medical History Abnormal EKG Allergies Chest pain Cholecystectomy planned Gout History of back pain History of COVID-19 History of MRSA infection Hypertension Near syncope Palpitations Tonsillectomy planned Surgical History H/O foot surgery H/O wisdom tooth extraction History of back surgery History of surgery Family History Father Lung cancer Mother Lung cancer Mother A-fib Social History Smoking Status: Never smoker alcohol intake: former substance use type: denies use current occupational status: employed Travel in the last 8 weeks: None household members: spouse housing: house current occupational exposures/hazards: Yes caffeine: Yes [facility] Anesthesia Checklist Patient Identification Patient Identification: Arm Band and Verbal (Name & ) Structural Data Admitted From: Home Planned Operative Procedure/s: Pain stimulator trial Consent for Planned Operative Procedure(s) Verified: Yes Verified Documents: Surgical Consent Additional verifications Anesthesia Reactions: No Hx Blood Transfusions: No Blood Transfusion Reaction: No Airway Assessment C-Spine Mobility Assessed: Yes Dentition: Good Dentition Neurological Assessment Level of Consciousness: Awake, Alert and Appropriate Anesthesia Plan Anesthesia Risk discussed: Yes ASA Class: II Anesthesia Type: MAC
[2021-12-09 08:39] VITALS: BP 125/71; PULSE 80; RESP 17; TEMP 36.6; O2SAT 98
[2021-12-09 08:49] VITALS: BP 132/78; PULSE 82; RESP 18; O2SAT 97
--- NOTE | 2021-12-09 08:54 | EXP.OP.NOTE ---
Date of procedure: 12/09/21 Pre-op Diagnosis:: Postlaminectomy syndrome lumbar spine with lumbar radiculopathy symptoms Post-op Diagnosis:: Same Procedure performed:: Spinal cord stimulator trial with epidural lead placement x2 Surgeon:: Ambrose Ortiz MD CONFERENCE SERVICES DIRECTOR:: Other Anesthesia: MAC Estimated blood loss (mL): 1 Clinical Note:: This patient is a pleasant 46-year-old white male who we have been treating for postlaminectomy syndrome lumbar spine with lumbar radiculopathy symptoms and CRPS type I of left ankle status post multiple surgeries to left ankle. He has failed all previous conservative treatments including injections, oral medications, physical therapy and he is not a surgical candidate for any further surgery. He has increasing pain in his back radiating down both legs and autonomic symptoms of his left foot and ankle. He presents for spinal cord stimulator trial today. We will plan on doing this with the [employer] system. Operative findings:: None Operative note:: Informed consent was obtained the risk and benefits of the procedure were explained to the patient. The patient was taken the operating room placed prone on the procedure table. He was prepped and draped in a sterile fashion. C-arm fluoroscopy was used to view the lumbar spine. The skin and subcutaneous tissues were anesthetized using lidocaine. I placed a 17-gauge epidural needle and advanced into the L1-L2 interspace. After confirmation needle placement in the epidural space stimulating lead was inserted and advanced very easily to the T7-T8-T9 vertebral body. Lead placement was checked in AP and lateral views. A second needle was inserted advanced again into the L1-L2 interspace. Again after confirmation of needle placement in the epidural space a second stimulating lead was inserted and advanced very easily to the T7-T8-T9 vertebral body. Again lead placement was checked in AP and lateral views. The stylets and needles were removed. The leads were secured in place. Patient was taken recovery in stable condition. The patient was programmed by the [employer] quality assurance representative with good stimulation in all areas of pain. Patient tolerated procedure well with no complications. Plan and disposition: We will follow-up with this patient in 1 week for lead pull. We will continually make changes as needed. Condition: stable Disposition: PACU Complications:: None
[2021-12-09 08:59] VITALS: BP 126/88; PULSE 66; RESP 17; O2SAT 98
[2021-12-09 09:09] VITALS: BP 132/79; PULSE 66; RESP 18; O2SAT 99
[2021-12-09 09:39] VITALS: BP 122/77; PULSE 69; RESP 18; O2SAT 99
== END 2021-12-09 09:42 | disposition home or self-care (01) ==
PROVIDERS: PCP Family Medicine; Visit Provider Anesthesiology
PROC: (CPT 63650; principal; 2021-12-09 07:30)
DX: M54.16 Radiculopathy, lumbar region (principal); M96.1 Postlaminectomy syndrome, not elsewhere classified; G90.522 Complex regional pain syndrome I of left lower limb
CPT/HCPCS: 63650 ×2; 36415; 80048; 85025; 96374; C1778; J3370

== ENCOUNTER → 2021-12-09 14:19 | Outpatient (CLI) | payer OTHER, SELFPAY ==
--- NOTE | 2021-12-09 14:23 | XR_ITS ---
FINAL REPORT TECHNIQUE: Chest PA & Lateral CLINICAL HISTORY: SOB just after pain prodcure this a.m. FINDINGS: 2 views of the chest were performed. The heart size is normal. The mediastinum is within normal limits. There is no acute cardiopulmonary process. There are no pleural effusions. There is no pneumothorax. The bony thorax appears intact. A spinal stimulator is seen terminating in the midthoracic spine. IMPRESSION: No acute cardiopulmonary process. Reviewed, Interpreted and Dictated by Isaac Varner III, MD Transcribed by Tee Turcios Authenticated and . [facility]
== END ==
PROVIDERS: PCP Family Medicine; Visit Provider Anesthesiology
DX: R06.02 Shortness of breath (principal)
CPT/HCPCS: 71046

== ENCOUNTER 2021-12-09 14:36 | Emergency (ER) | payer OTHER, SELFPAY ==
[2021-12-09] VITALS (8 sets, daily range): BP systolic 115–137; BP diastolic 70–89; PULSE 65–84; RESP 16–18; TEMP 36.5–36.8; O2SAT 99–100; BMI 34.2
--- NOTE | 2021-12-09 15:06 | ECG_ITS ---
APPROVED REPORT Exam: Resting ECG HR:79 bpm ECG Measurements Heart Rate 79 AXES UT 157 P 36 QRSd 97 QRS 8 QT 373 T 47 QTc 408 Conclusion SINUS RHYTHM WITH SINUS ARRHYTHMIA NORMAL ECG UNCONFIRMED REPORT Electronically signed by : Mario Cramer MD 12/10/2021 08:30:03
[2021-12-09 15:10] LABS: Chloride 96 mmol/L (98-107); Potassium 4.1 mmoL/L (3.5-5.1); Sodium 136 mmol/L (136-145)
[2021-12-09 15:13] LABS: Alanine Aminotransferase 29 U/L (12-78); Albumin Level 4.7 g/dl (3.5-5.0); Albumin/Globulin Ratio 1.6 (1.1-1.8); Alkaline Phosphatase 86 U/L (38-126); Anion Gap 13.1 mEq/L (5-15); Aspartate Amino Transferase 38 U/L (17-59); Bilirubin,Total 0.3 mg/dl (0.2-1.3); Blood Urea Nitrogen 15 mg/dl (9-20); Calcium 8.9 mg/dl (8.4-10.2); Carbon Dioxide 31 mmol/L (22.0-30.0); Creatinine Clearance Estimated 173 mL/min (50-200); Estimated Glomerular Filt Rate 91 ml/min (>60); GFR (African American) 110 ML/MIN (>60); Globulin 2.9 g/dL (1.3-3.2); Glucose 90 mg/dl (74-100); Total Protein,Serum 7.6 g/dl (6.3-8.2)
[2021-12-09 15:14] LABS: Basophils # 0.1 K/mm3 (0-0.2); Basophils % 0.5 % (0.1-2.0); Eosinophils # 0.2 K/mm3 (0.0-0.4); Eosinophils % 0.9 % (0.1-12.0); Hematocrit 43.4 % (42.0-52.0); Hemoglobin 14.3 g/dL (14.1-18.0); Lymphocytes # 1.8 K/mm3 (0.7-4.5); Lymphocytes % 10.6 % (10-50); Mean Corpuscular HGB Conc 32.9 g/dL (31.8-35.4); Mean Corpuscular Hemoglobin 29.9 pg (27.0-31.2); Mean Corpuscular Volume 90.9 fl (80-94); Mean Platelet Volume 8.2 fl (7.4-10.4); Monocytes # 0.7 K/mm3 (0.1-1.0); Monocytes % 4.2 % (1.7-9.3); Neutrophils # 14.5 K/mm3 (1.8-7.8); Neutrophils % 83.9 % (37.0-80.0); Platelet Count 396 K/mm3 (142-424); Red Blood Count 4.78 M/mm3 (4.60-6.20); Red Cell Distribution Width 14.3 % (11.5-17.5); White Blood Count 17.3 K/mm3 (4.8-10.8)
--- NOTE | 2021-12-09 15:15 | HMH.EDGENADL ---
Discharge Plan Disposition Patient Disposition: Home, Self-Care Condition: Good Chief Complaint: Allergic Reaction Prescriptions Prescriptions: No Action colchicine 0.6 mg tablet 0.6 mg PO DAILY PRN (Reason: gout) allopurinol 300 mg tablet 300 mg PO DAILY dextroamphetamine-amphetamine 20 mg capsule,extended release 24hr 20 mg PO DAILY ibuprofen 800 mg tablet 800 mg PO BID 30 Days Qty: 60 3RF methocarbamol 750 MG tablet 750 mg PO Q8H hydrochlorothiazide 25 MG tablet 25 mg PO DAILY Rx Instructions: Take 1 tablet by mouth once daily lisinopril 40 MG tablet 40 mg PO DAILY Rx Instructions: Take 1 tablet by mouth once daily clindamycin HCl 300 mg capsule 300 mg PO TID Qty: 21 0RF Referrals Follow up/Referrals: Minh Pop MD [Primary Care Provider] - See instructions Activity Restrictions/Add. Instructions Additional Instructions/Restrictions: Take clindamycin as previously prescribed Follow-up with Dr. Pop in the office on Sunday Return to the emergency department or call Dr. Proctor this weekend if worsening Clinical Impressions Clinical Impression: Uvular edema, Productive cough, Bilateral flank pain, Leukocytosis Discharge ED Provider: Hai Gomez General Adult HPI General Chief complaint: Allergic Reaction Stated complaint: soa, blister on tounge, possible allergic reaction Time Seen by Provider: 12/09/21 15:16 Mode of Arrival: Wheelchair Limitations: No Limitations Description of Symptoms (Recalled from ER Triage Doc. by RN): pt to ED from Pain management. pt had a STEM procedure this morning and was given vanc. pt stated he got home and started to not feel well accpompaned by a scratchy sore throat and blisters on his tongue. pt is in no obvious respiratory distress at this time. History of Present Illness HPI narrative: Patient is brought in from pain management. He had a spinal stimulator test device inserted this morning. He says that prior to his surgery he felt perfectly fine. He says immediately after waking up from sedation he had a severe overall throat. After he went home he says when he laid down he had a rattle in his chest and wheezing. That has since resolved. He has bilateral flank pain that feels either like bad muscle spasms or pain from his kidneys. He says that he felt feverish. He had a cough producing green and yellow mucus. No blood produced. He has a sense of tightness in his chest. He went back to pain management and was evaluated by anesthesia and pain management. He had a chest x-ray to rule out aspiration which was negative. He says they were concerned about possible medication reaction. He was given vancomycin during surgery. He says that he has a previous reaction to Bactrim, a possible Tyler-Jose M syndrome, but caused peeling of the skin on his penis. He says that he was called in a prescription for Bactrim today after his procedure, but called back had it changed to clindamycin because of his previous reaction. Related Data Home Medications Medication Instructions Recorded Confirmed colchicine 0.6 mg tablet 0.6 mg PO DAILY PRN gout 08/30/20 12/07/21 allopurinol 300 mg tablet 300 mg PO DAILY GOUT 03/21/21 12/07/21 dextroamphetamine-amphetamine ER 20 mg PO DAILY ADHD 05/02/21 12/07/21 20 mg 24hr capsule,extend release hydrochlorothiazide 25 mg tablet 25 mg PO DAILY HTN 09/08/21 12/07/21 lisinopril 40 mg tablet 40 mg PO DAILY HTN 09/08/21 12/07/21 methocarbamol 750 mg tablet 750 mg PO Q8H Pain 09/08/21 12/07/21 Previous Rx's Medication Instructions Recorded ibuprofen 800 mg tablet 800 mg PO BID pain, mild 30 days 02/09/21 #60 tabs clindamycin HCl 300 mg capsule 300 mg PO TID #21 caps 12/09/21 Allergies Allergy/AdvReac Type Severity Reaction Status Date / Time sulfamethoxazole AdvReac Intermediate Rash Verified 12/09/21 09:45 [From Bactrim] trimethoprim [From B
[2021-12-09 15:16] LABS: MANUAL DIFFERENTIAL MANUAL DIFFERENTIAL (MANUAL DIFF)
--- NOTE | 2021-12-09 15:22 | PC.NURSE ---
PT AMBULATED UP TO BR AND IS EATING ICE CHIPS
[2021-12-09 15:29] LABS: Eosinophils % 1 % (0-3); Lymphocytes % 15 % (10-50); Monocytes % 2 % (2-9); Neutrophils % 82 % (42-76); Stomatocytes 1+; Total Cells Counted 100
[2021-12-09 15:30] LABS: Platelet Estimate Normal
[2021-12-09 16:18] LABS: Coronavirus 19, PCR Not Detected (NotDetected); Influenza A, PCR Not Detected (NotDetected); Influenza B, PCR Not Detected (NotDetected); Microscopic, Urine URINE MICROSCOPIC (MICROSCOPIC)
[2021-12-09 16:22] LABS: Appearance,Urine CLEAR (Clear); Bilirubin,Urine Negative (Negative); Blood, Urine Negative (Negative); Color,Urine YELLOW (Yellow); Glucose,Urine (UA) Negative (Negative); Ketones,Urine Negative (Negative); Leukocyte Esterase,Urine Negative (Negative); Nitrate,Urine Negative (Negative); Protein,Urine Negative (Negative); Urobilinogen,Urine 0.2 EU/dl (0.2)
[2021-12-09 16:30] LABS: Lactic Acid 0.9 mmol/L (0.7-2.1)
[2021-12-09 16:36] LABS: Strep Scrn Group A (Rapid) Negative (Negative)
[2021-12-09 16:38] LABS: Bacteria,Urine Trace /lpf; Squamous Epithelial Cell,Urine Occasional #/hpf (0-5); WBC,Urine Occasional #/hpf (0-3)
--- NOTE | 2021-12-09 16:54 | PC.NURSE ---
TALKING TO DR HIDALGO ABOUT PT
== END 2021-12-09 17:35 | disposition home or self-care (01) ==
PROVIDERS: Emergency Provider Emergency Medicine; PCP Family Medicine
DX: K13.79 Other lesions of oral mucosa; R05.8 Other specified cough; R10.9 Unspecified abdominal pain; D72.829 Elevated white blood cell count, unspecified; Z88.2 Allergy status to sulfonamides; Z79.899 Other long term (current) drug therapy; M10.9 Gout, unspecified; I10 Essential (primary) hypertension; R00.2 Palpitations; Z86.16 Personal history of COVID-19; Z86.14 Personal history of Methicillin resistant Staphylococcus aureus infection; Z80.1 Family history of malignant neoplasm of trachea, bronchus and lung
CPT/HCPCS: 80053; 81001; 83605; 85007; 85025; 87040; 87430; 93005; 96374; 99284; C9803; U0003; U0005

== ENCOUNTER → 2021-12-15 10:50 | Outpatient (POV) | payer OTHER, SELFPAY ==
[2021-12-15 12:06] VITALS: BP 128/74; PULSE 98; RESP 18; TEMP 36.3; O2SAT 98; BMI 34.2
--- NOTE | 2021-12-15 12:27 | EXP.PAIN.SOA ---
[facility] Pain Management SOAP Note Subjective:: Patient is a pleasant 46-year-old male who presents today for follow-up of spinal cord stimulator trial. We are currently treating the patient for degenerative disc disease of lumbar spine with lumbar radiculopathy symptoms, postlaminectomy syndrome lumbar spine. Today the patient rates his pain a 0 out of 10. He states he has had significant improvement of his pain symptoms following this trial. Patient denies any side effects. He states he was able to increase his activities of daily living with 90 to 100% relief of his pain symptoms. Patient denies any new trauma or injury or change to location or type of pain he does experience. Patient states that they did have to adjust some of the programming however the last 1 provided significant improvement and was even able to reach his left foot pain. 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 He has had his L5-S1 fused about 4 years ago.? He states that he also has sacroiliac issues bilaterally.? He states he also had a lawnmower accident in 2020 which is caused him to have multiple left foot surgeries and has a lot of residual pain.? He has tried injective therapy at [facility] in the past including medial branch block injections and radiofrequency ablation.? His last procedure was about 4 to 5 months ago where he did have the medial branch block RFA.? He states that he did get significant relief, 70%, from this procedure however the medial branch block themselves only gave minimal relief.? He also states he has a clicking sensation in his right back.? He finds it hard to sleep or do activities of daily living due to his pain.? He states he has numbness and burning in both bilateral lower extremities.? He has been off work for over a year and just recently went back last month.? He states he has tried [id number] Tylenol and ibuprofen and muscle relaxers as needed with minimal relief.? He states he is on permanent light duty.? He has tried and failed conservative therapies such as physical therapy oral medications, home stretching and exercise therapy for more than 6 weeks. He is currently prescribed methocarbamol as a muscle relaxer. Patient denies any side effects from this medication. He states this medication does help his symptoms some. Patient is concerned about having significant pain following his spinal cord stimulator leads being removed at today's visit. Patient is requesting something to help his pain at night until he is able to get the approval for the spinal cord stimulator implant. His Jai is [id number]. It is been reviewed and appropriate. Review of Systems: General: No recent weight changes, no fever, no sleep disturbances Respiratory: No cough, no shortness of air, no recurring pulmonary infections Cardiovascular/peripheral vascular: No chest pain, no palpitations, no edema, no shortness of breath Gastrointestinal: No new onset incontinence, normal bowel movements reported Genitourinary: No new onset incontinence Musculoskeletal: Low back pain, bilateral leg pain Psychiatric: [Normal mood/affect] Neurological: [Denies weakness in extremities], [denies balance issues] Objective:: Physical Exam: General: Alert and oriented x3, no acute distress, pleasant and cooperative Lungs: Respirations even and unlabored, symmetrical chest expansion Eyes: PERRL Musculoskeletal: Flexion and extension of lumbar [spine] somewhat guarded secondary to pain, [antalgic gait noted] Neurological: Speech clear, no gross sensory deficit Assessment:: Degenerative disc disease lumbar spine with lumbar radiculopathy symptoms, postlaminectomy syndrome lumbar spine Plan:: Patient has had 90 to 100% relief of his pain symptoms following his spinal cord stimulator trial. Patient has also had significant improvement in his functional ability to perform activities of daily living. We will submit for a [employer] spinal cord
== END | disposition home or self-care (01) ==
PROVIDERS: PCP Family Medicine; Visit Provider Nurse Practitioner Family
DX: M51.16 Intervertebral disc disorders with radiculopathy, lumbar region (principal); M96.1 Postlaminectomy syndrome, not elsewhere classified
CPT/HCPCS: 99212; 99213; G0463

== ENCOUNTER → 2021-12-22 08:31 | Outpatient (POV) | payer OTHER, SELFPAY ==
[2021-12-22 08:44] VITALS: BP 127/82; PULSE 90; RESP 18; TEMP 36.9; O2SAT 99; BMI 34.2
--- NOTE | 2021-12-22 10:06 | EXP.PAIN.SOA ---
[facility] Pain Management SOAP Note Subjective:: Patient is a pleasant 46-year-old male who presents today for follow-up. We are currently treating the patient for degenerative disc disease of lumbar spine with lumbar radiculopathy symptoms, postlaminectomy syndrome lumbar spine. Today the patient rates his pain a 7 out of 10. Patient states he has significant pain in his low back and radiating into his bilateral lower extremities as well as left foot pain. Patient denies any new trauma or injury. Patient denies any change in location or type of pain he experiences. Patient recently did do a spinal cord stimulator trial that relieved 90 to 100% of his pain symptoms. He is currently waiting for insurance approval for the implant. 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 Patient does have a lumbar fusion at L5-S1 approximately 4 years ago. Patient does have a history of sacroiliac issues as well. Patient did have a lawnmower accident in 2020 that caused him to have multiple surgeries on his left foot and continuously has residual pain. Patient has done injective therapy at [facility] and Dr. Hamm's office as well as our office. Patient has had medial branch blocks, RFA's that did provide minimal relief of pain. Patient states this pain does affect his activities of daily living. He is often unable to tolerate standing on his feet for long periods of time. He is permanently on light duty due to his pain symptoms. Patient has tried and failed conservative therapy such as oral medications, topicals, heat and ice, physical therapy and at home exercising and stretching for more than 6 weeks. He is currently prescribed methocarbamol and tramadol 50 mg at night. Patient denies any side effects from this medication. He states this medication does help take the edge off of his pain symptoms. He is requesting a refill of his tramadol at today's visit. Patient states he is scheduled to see Dr. Hernandez in December for possible additional foot surgery. Patient states he also has a TENS unit that he will use on his left foot. His Jai is [id number]. It has been reviewed and appropriate. Review of Systems: General: No recent weight changes, no fever, no sleep disturbances Respiratory: No cough, no shortness of air, no recurring pulmonary infections Cardiovascular/peripheral vascular: No chest pain, no palpitations, no edema, no shortness of breath Gastrointestinal: No new onset incontinence, normal bowel movements reported Genitourinary: No new onset incontinence Musculoskeletal: Low back pain, left foot pain Psychiatric: [Normal mood/affect] Neurological: [Denies weakness in extremities], [denies balance issues] Objective:: Physical Exam: General: Alert and oriented x3, no acute distress, pleasant and cooperative Lungs: Respirations even and unlabored, symmetrical chest expansion Eyes: PERRL Musculoskeletal: Flexion and extension of lumbar [spine] somewhat guarded secondary to pain, [antalgic gait noted] Neurological: Speech clear, no gross sensory deficit Assessment:: Degenerative disc disease of lumbar spine with lumbar radiculopathy symptoms postlaminectomy syndrome Plan:: Patient is experiencing significant pain in his low back that radiates into his leg and left foot. Patient previously had 90 to 100% relief following his spinal cord stimulator trial. We are currently waiting for insurance approval on the implant. I will refill the patient's tramadol 50 mg at night and provide a 1 month supply of this medication. I will also prescribe the patient a compounding cream. We will follow-up with the patient in 1 month. Patient will return to clinic in 1 month for reevaluation of symptoms, medication refill and follow-up. Patient has been instructed to contact the clinic with any concerns before the next appointment. Dr. Ortiz has reviewed this note and agrees with this plan of care. This note
== END ==
PROVIDERS: PCP Family Medicine; Visit Provider Nurse Practitioner Family
DX: M51.16 Intervertebral disc disorders with radiculopathy, lumbar region (principal); M96.1 Postlaminectomy syndrome, not elsewhere classified; Z79.899 Other long term (current) drug therapy
CPT/HCPCS: 99212; G0463

== ENCOUNTER → 2021-12-29 08:55 | Outpatient (CLI) | payer OTHER, SELFPAY ==
[2021-12-29 09:32] LABS: Basophils # 0.1 K/mm3 (0-0.2); Basophils % 0.6 % (0.1-2.0); Eosinophils # 0.2 K/mm3 (0.0-0.4); Eosinophils % 2.4 % (0.1-12.0); Hematocrit 41.2 % (42.0-52.0); Hemoglobin 13.5 g/dL (14.1-18.0); Lymphocytes # 1.6 K/mm3 (0.7-4.5); Lymphocytes % 19.4 % (10-50); Mean Corpuscular HGB Conc 32.8 g/dL (31.8-35.4); Mean Corpuscular Hemoglobin 29.5 pg (27.0-31.2); Mean Corpuscular Volume 90.2 fl (80-94); Mean Platelet Volume 8.2 fl (7.4-10.4); Monocytes # 0.4 K/mm3 (0.1-1.0); Monocytes % 5.1 % (1.7-9.3); Neutrophils # 5.9 K/mm3 (1.8-7.8); Neutrophils % 72.5 % (37.0-80.0); Platelet Count 339 K/mm3 (142-424); Red Blood Count 4.57 M/mm3 (4.60-6.20); Red Cell Distribution Width 14.3 % (11.5-17.5); White Blood Count 8.2 K/mm3 (4.8-10.8)
[2021-12-29 10:13] LABS: Anion Gap 16.4 mEq/L (5-15); Blood Urea Nitrogen 17 mg/dl (9-20); Calcium 9.5 mg/dl (8.4-10.2); Carbon Dioxide 24 mmol/L (22.0-30.0); Chloride 101 mmol/L (98-107); Estimated Glomerular Filt Rate 105 ml/min (>60); GFR (African American) 126 ML/MIN (>60); Glucose 82 mg/dl (74-100); Potassium 4.4 mmoL/L (3.5-5.1); Sodium 137 mmol/L (136-145)
== END ==
PROVIDERS: PCP Family Medicine; Visit Provider Anesthesiology
DX: Z01.812 Encounter for preprocedural laboratory examination (principal); M51.36 Other intervertebral disc degeneration, lumbar region
CPT/HCPCS: 36415; 80048; 85025

== ENCOUNTER 2021-12-30 07:59 | Day surgery (SDC) | payer OTHER, SELFPAY ==
[2021-12-27 12:35] VITALS: BMI 34.2
[2021-12-30] VITALS (9 sets, daily range): BP systolic 106–126; BP diastolic 66–81; PULSE 60–73; RESP 16–18; TEMP 36.1–36.3; O2SAT 97–100
--- NOTE | 2021-12-30 08:22 | SUR.PREOP ---
Pt discussed having a severe allergic reaction last time he had surgery. Discussed with Aleksander Domingo CRNA and will inform Dr. Ortiz when he arrives.
--- NOTE | 2021-12-30 09:00 | SUR.PREOP ---
Verified with Dr. Ortiz is aware of allergic reaction last time pt had surgery. Changed antibiotics to Ancef [address] Vancomycin[address] order faxed to pharmacy.
--- NOTE | 2021-12-30 09:10 | SUR.PREOP ---
Pt progress number given to Marcie, and verbalized understanding of system
--- NOTE | 2021-12-30 10:47 | EXP.ANES.CKL ---
[facility] Medical History Abnormal EKG Allergies Chest pain Cholecystectomy planned Gout History of back pain History of COVID-19 History of MRSA infection Hypertension Near syncope Palpitations Tonsillectomy planned Surgical History H/O foot surgery H/O wisdom tooth extraction History of back surgery History of surgery Family History Father Lung cancer Mother Lung cancer Mother A-fib Social History (Updated 12/27/21 @ 12:38 by Penelope Rendon RN) Smoking Status: Never smoker alcohol intake: former substance use type: denies use current occupational status: employed Travel in the last 8 weeks: None household members: spouse housing: house current occupational exposures/hazards: Yes caffeine: Yes [facility] Anesthesia Checklist Patient Identification Patient Identification: Arm Band Structural Data Admitted From: Home Planned Operative Procedure/s: Neurstimulator Implant Consent for Planned Operative Procedure(s) Verified: Yes Verified Documents: Surgical Consent and History and Physical NPO Status Verified Time NPO: 00:00 Additional verifications Anesthesia Reactions: Yes (last surgery had to come to ER for reaction to a medication) Hx Blood Transfusions: No Blood Transfusion Reaction: No Airway Assessment C-Spine Mobility Assessed: Yes TMJ Mobility Assessed: Yes Dentition: Good Dentition Neurological Assessment Level of Consciousness: Awake and Alert Anesthesia Plan Anesthesia Risk discussed: Yes Anesthesia Plan: Verified ASA Class: II Anesthesia Type: MAC
--- NOTE | 2021-12-30 11:44 | P.OP_ITS ---
Date of procedure: 12/30/21 Pre-op Diagnosis:: Postlaminectomy syndrome lumbar spine with lumbar radiculopathy symptoms Post-op Diagnosis:: Same Procedure performed:: Permanent placement spinal cord stimulator with epidural lead placement x2 and generator placement Surgeon:: Ambrose Ortiz MD IOS SOFTWARE ENGINEER:: Lars Domingo Anesthesia: MAC Estimated blood loss (mL): 5 Clinical Note:: Patient is a pleasant 46-year-old white male who we have been treating for postlaminectomy syndrome lumbar spine with lumbar radiculopathy symptoms and CRPS type one of the left ankle status post multiple surgeries. He has failed all previous conservative treatments including injections, oral medications, physical therapy and he is not a surgical candidate for any further surgery. He has had a successful psychological evaluation. He is also had a successful spinal cord stimulator trial. He presents for permanent placement of his [employer] spinal cord stimulator today. Operative findings:: None Operative note:: Informed consent was obtained the risk and benefits of the procedure were explained the patient. Patient was taken the operating room placed prone on the procedure table. He was prepped and draped in sterile fashion. C-arm fluoroscopy was used to view the lumbar spine. I made an incision adjacent to the L2-L3 and L3-L4 interspace. I dissected down to the lumbar paraspinous fascia. A 17-gauge epidural needle was inserted and advanced into the L2-L3 interspace. After confirmation of needle placement in the epidural space stimulating lead was inserted and advanced very easily to the T8-T9 vertebral body. A second needle was inserted and advanced again into the L2-L3 interspace. Again after confirmation of needle placement in the epidural space a second stimulating lead was inserted and advanced again very easily to the T8- T9 vertebral body. Lead placement was checked in AP and lateral views. The leads were secured to the fascia with anchoring devices and 2-0 Prolene. I then created the generator pocket over the right flank. I tunneled leads from the back to the generator pocket and attached the leads to the generator. Impedances were checked and found to be okay. We did have to manipulate the lead as one lead pull down some. After good placement of the leads both incisions were irrigated with antibiotic solution. Both incisions were then closed with 2-0 Vicryl followed by chente. A wound VAC was placed over both incisions. The patient was placed in an abdominal binder. Patient was then taken recovery stable condition. The patient was programmed by the [employer] inbound call center representative with good stimulation in all areas of pain. Patient was discharged home neurologic intact with good relief of pain symptoms. Plan and disposition: We will follow-up with him in 1 week for reprogramming and wound check. We will follow-up in 2 weeks for staple removal. If he has any problems questions he can call us back in the pain clinic. Condition: stable Disposition: PACU Complications:: None
--- NOTE | 2021-12-30 12:39 | PC.NURSE ---
Pt c/o feeling like hes having a reaction like he did after his last procedure Aleksander Domingo CRNA at bedside. Order for IV benadryl 25 mg x 1 now given. Will monitor pt for 1/2 hour after administration of medication.
--- NOTE | 2021-12-30 12:53 | SUR.PHASEII ---
1252- notified Aleksander Domingo CRNA that pt c/o feeling like throat is swollen and sore is unimproved. Pt complaining that his uvula feels swollen. Upon using a flashlight to assess pt's throat his uvula does appear reddened and large. Notified [employer] of this.
--- NOTE | 2021-12-30 13:02 | SUR.PHASEII ---
1255- order for 4 mg IV decadron per [employer]. [employer] SHARED SERVICES REPRESENTATIVE
--- NOTE | 2021-12-30 14:44 | PC.NURSE ---
1430- Dr ortiz at bedside prior to d/c. Pt states his throat feels some better and not worse. VSS. Throat appears less red. Instructed pt if he feels like his throat is more irritated to notify MD or hes having trouble swallowing to go to ER. Dr Ortiz was ok for pt to be discharged and to return to office on his scheduled appointment unless there are any complications.
== END 2021-12-30 14:30 | disposition home or self-care (01) ==
PROVIDERS: PCP Family Medicine; Visit Provider Anesthesiology
PROC: (CPT 63685; principal; 2021-12-30 09:45)
DX: M54.16 Radiculopathy, lumbar region (principal); M96.1 Postlaminectomy syndrome, not elsewhere classified; Z79.899 Other long term (current) drug therapy
CPT/HCPCS: 63685; 63650; 96374; C1778; C1820

== ENCOUNTER → 2022-01-05 11:36 | Outpatient (POV) | payer OTHER, SELFPAY ==
--- NOTE | 2022-01-05 11:52 | EXP.PAIN.SOA ---
[facility] Pain Management SOAP Note Subjective:: Patient is a pleasant 46-year-old male who presents today for follow-up. We are currently treating the patient for degenerative disc disease of lumbar spine with lumbar radiculopathy symptoms, postlaminectomy syndrome lumbar spine. Today the patient rates his pain a 4 out of 10. Patient states the pain is primarily in his low back around his lumbar incision site as well as some residual low back pain that radiates into his lower extremities and left foot. Patient did have his spinal cord stimulator placed December 31, 2019. Patient states he is doing well with his current programming however he does feel like it may be up to high and needs a little adjustment. His previous spinal cord stimulator trial provided 90 to 100% relief of his symptoms. 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 Patient also has lumbar fusion at L5-S1 from approximately 2017. Patient does have sciatic issues in the past. Patient had a significant lawnmower accident in 2020 that caused multiple surgeries to be performed on his left foot and now has chronic pain. Patient states he has had some continued swelling at this site and describes sharp pains on the outside of his foot. Patient is seeing Dr. Hernandez for this and is scheduled for a follow-up the of this month. Patient states at the last visit she did mention about possibly doing an exploratory procedure however patient states he really does not want to proceed forward with that option. Patient has tried and failed conservative therapy such as oral medications, topicals, heat and ice, physical therapy, at home exercising and stretching for more than 6 weeks. He is currently prescribed compounding cream that he states provides significant improvement of his symptoms. He is also prescribed a muscle relaxer methocarbamol at night. Patient denies any side effects from this medication. Patient's Jai is [id number]. It has been reviewed and appropriate. Review of Systems: General: No recent weight changes, no fever, no sleep disturbances Respiratory: No cough, no shortness of air, no recurring pulmonary infections Cardiovascular/peripheral vascular: No chest pain, no palpitations, no edema, no shortness of breath Gastrointestinal: No new onset incontinence, normal bowel movements reported Genitourinary: No new onset incontinence Musculoskeletal: Low back pain Psychiatric: [Normal mood/affect] Neurological: [Denies weakness in extremities], [denies balance issues] Objective:: Physical Exam: General: Alert and oriented x3, no acute distress, pleasant and cooperative Lungs: Respirations even and unlabored, symmetrical chest expansion Eyes: PERRL Musculoskeletal: Flexion and extension of lumbar [spine] somewhat guarded secondary to pain, [antalgic gait noted] Neurological: Speech clear, no gross sensory deficit Skin: Incision sites clean, dry, well approximated, chente intact, no erythema noted Assessment:: Degenerative disc disease of lumbar spine with lumbar radiculopathy symptoms, postlaminectomy syndrome Plan:: Following the removal of his wound VAC during today's visit patient's pain scale is now a 0 out of 10. Patient states that the wound VAC tube was pushing in on his incisions and causing additional pain. Patient has been counseled to continue his restrictions of minimal bending lifting twisting and no tub bathing. Patient has also been counseled to continue to wear his abdominal binder until the incision sites are completely healed. Patient's incision sites are clean, dry, well approximated with no erythema noted and chente intact. [employer] bilingual inside sales representative is present today for adjustment of his spinal cord stimulator programming. We will see the patient back in 2 weeks for reevaluation of symptoms, staple removal and follow-up. Patient has been instructed to contact the clinic with any con
[2022-01-05 11:54] VITALS: BP 127/65; PULSE 80; RESP 18; O2SAT 99; BMI 34.2
== END ==
PROVIDERS: PCP Family Medicine; Visit Provider Nurse Practitioner Family
DX: M51.16 Intervertebral disc disorders with radiculopathy, lumbar region (principal); M96.1 Postlaminectomy syndrome, not elsewhere classified
CPT/HCPCS: 99212; G0463

== ENCOUNTER → 2022-01-17 13:49 | Outpatient (POV) | payer OTHER, SELFPAY ==
--- NOTE | 2022-01-17 14:10 | EXP.PAIN.SOA ---
[facility] Pain Management SOAP Note Subjective:: Patient is a pleasant 46-year-old male who presents today for follow-up of spinal cord stimulator implant on December 30, 2021. We are currently treating the patient for degenerative disc disease of lumbar spine with lumbar radiculopathy symptoms, postlaminectomy syndrome today the patient rates his pain a 3 out of 10. Patient denies any problems from his procedure date and states he is continue to do well. Patient at our last visit did have some additional incision site pain however he states that has improved. Patients prior pain was at his low back with radiating symptoms into his lower extremities and left foot. Patient did just have his spinal cord stimulator readjusted by [employer] phlebotomy services representative yesterday and states it is doing well. 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 Patient does have a history of lumbar fusion at L5-S1. Patient also has sciatic issues and had significant trauma following a lawnmower accident in 2020 that resulted in multiple surgeries and chronic pain. Patient is scheduled to see Dr. Hernandez later this month on the for a follow-up. Patient states that she previously mentioned about doing a exploratory procedure however the patient was not really interested with this option. Patient is managed with compounding cream that he states does provide additional relief of his symptoms. He is also prescribed methocarbamol at night however the patient states following his spinal cord stimulator placement he has not had to use this medication. His Jai is [id number]. It has been reviewed and appropriate. Review of Systems: General: No recent weight changes, no fever, no sleep disturbances Respiratory: No cough, no shortness of air, no recurring pulmonary infections Cardiovascular/peripheral vascular: No chest pain, no palpitations, no edema, no shortness of breath Gastrointestinal: No new onset incontinence, normal bowel movements reported Genitourinary: No new onset incontinence Musculoskeletal: Low back pain, left foot pain Psychiatric: [Normal mood/affect] Neurological: [Denies weakness in extremities], [denies balance issues] Objective:: Physical Exam: General: Alert and oriented x3, no acute distress, pleasant and cooperative Lungs: Respirations even and unlabored, symmetrical chest expansion Eyes: PERRL Musculoskeletal: Flexion and extension of lumbar [spine] somewhat guarded secondary to pain, [antalgic gait noted] Neurological: Speech clear, no gross sensory deficit Skin: Incision sites clean, dry, well approximated, minimal erythema noted Assessment:: Degenerative disc disease of lumbar spine with lumbar radiculopathy symptoms, postlaminectomy syndrome Plan:: Patient continues to have significant improvement following his spinal cord stimulator implant. Patient's incision site is clean, dry, well approximated with minimal erythema. Patricia were removed at today's visit and skin glue and Steri-Strips applied to the right lower lumbar incision and one Steri-Strip at the midline incision. I have counseled the patient to continue with his postoperative restrictions of minimal bending, lifting, twisting and no tub bathing. Patient has been instructed to continue to use his abdominal binder for the full 6 weeks. Patient is on permanent light duty at his work and I have counseled him that he can return to work with no additional restrictions. We will follow-up with the patient in 1 month. Patient will return to clinic in 1 month for reevaluation of symptoms and follow-up. Patient has been instructed to contact the clinic with any concerns before the next appointment. Dr. Ortiz has reviewed this note and agrees with this plan of care. This note was dictated using voice recognition software and make contain errors or omissions. [facility] Medical History Abnormal EKG Allergies Janet
[2022-01-17 14:12] VITALS: BP 119/69; PULSE 91; RESP 18; O2SAT 98; BMI 34.2
== END ==
PROVIDERS: PCP Family Medicine; Visit Provider Nurse Practitioner Family
DX: M51.16 Intervertebral disc disorders with radiculopathy, lumbar region (principal); M96.1 Postlaminectomy syndrome, not elsewhere classified
CPT/HCPCS: 99212; 99213; G0463

== ENCOUNTER → 2022-01-24 10:54 | Outpatient (CLI) | payer OTHER, SELFPAY ==
--- NOTE | 2022-01-24 10:57 | XR_ITS ---
FINAL REPORT CLINICAL HISTORY: L peroneal tendonitis COMPARISON: 10/10/2021 FINDINGS: LEFT FOOT Three views of the left foot demonstrate no acute fracture or dislocation. There are postoperative changes of the calcaneus and 1st metatarsal. There are mild degenerative changes in the midfoot. The soft tissues are unremarkable. IMPRESSION: Mild degenerative changes in the midfoot. No acute bony abnormality. Reviewed, Interpreted and Dictated by Meghan Manzo MD Transcribed by Rosa Isela Lind Authenticated and [facility]
== END ==
PROVIDERS: PCP Family Medicine; Visit Provider Podiatrist
DX: M76.62 Achilles tendinitis, left leg (principal); E66.9 Obesity, unspecified; Z68.34 Body mass index [BMI] 34.0-34.9, adult
CPT/HCPCS: 73630

== ENCOUNTER → 2022-02-07 11:29 | Outpatient (POV) | payer OTHER, SELFPAY ==
[2022-02-07 11:45] VITALS: BP 137/92; PULSE 77; RESP 20; BMI 168.2
--- NOTE | 2022-02-07 11:52 | EXP.PAIN.SOA ---
[facility] Pain Management SOAP Note Subjective:: Patient is a pleasant 46-year-old male who presents today for follow-up. We are currently treating the patient for degenerative disc disease of lumbar spine with lumbar radiculopathy symptoms, postlaminectomy syndrome, left foot pain, CRPS lower limb. Today the patient rates his back pain a 2 out of 10 however states his foot is bothering him today and describes it as a 7 out of 10. Patient denies any new trauma or injury. Patient denies any change location or type of pain he experiences. Patient did have a spinal cord stimulator implanted on December 30, 2021. Patient denies any additional issues following this procedure and states he has done well. Patient is scheduled to see Dr. Hamm on the for follow-up of his left foot pain. Previously he stated that she had discussed about doing an exploratory procedure on this foot however he is reluctant to proceed forward with this option. Patient did have a lawnmower accident in 2020 that resulted in multiple surgeries and chronic pain of his left foot. 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 Patient is very active and has done well with the spinal cord stimulator as well as compounding cream that he states provides significant improvement. Patient is also prescribed methocarbamol at night to provide additional improvement however he states he has not had to continue this medication since having his spinal cord stimulator placed. Patient states he has been using additional programming on his spinal cord stimulator and states that he may contact the [employer] technical account representative for a appointment to reprogram his stimulator. Patient is already scheduled on the of this month for a follow-up appointment. His Jai is [id number]. It is been reviewed and appropriate. Review of Systems: General: No recent weight changes, no fever, no sleep disturbances Respiratory: No cough, no shortness of air, no recurring pulmonary infections Cardiovascular/peripheral vascular: No chest pain, no palpitations, no edema, no shortness of breath Gastrointestinal: No new onset incontinence, normal bowel movements reported Genitourinary: No new onset incontinence Musculoskeletal: Low back pain, left foot pain Psychiatric: [Normal mood/affect] Neurological: [Denies weakness in extremities], [denies balance issues] Objective:: Physical Exam: General: Alert and oriented x3, no acute distress, pleasant and cooperative Lungs: Respirations even and unlabored, symmetrical chest expansion Eyes: PERRL Musculoskeletal: Flexion and extension of [] [spine] somewhat guarded secondary to pain, [antalgic gait noted] Neurological: Speech clear, no gross sensory deficit Skin: Incision sites clean, dry, completely healed with no erythema Assessment:: Degenerative disc disease of lumbar spine with lumbar radiculopathy symptoms, postlaminectomy syndrome, left foot pain, CRPS lower limb Plan:: Patient continues to have significant pain in his left foot and low back however his back pain is managed well with his spinal cord stimulator. I have discussed with the patient regarding reprogramming this device soon and he will keep his February 23 appointment specifically for this reason. Patient will contact our office for any additional follow-up needs. I have counseled the patient that he can resume his regular activity now that his incision sites are completely healed with no other restrictions. Patient has been instructed to contact the clinic with any concerns before the next appointment. Dr. Ortiz has reviewed this note and agrees with this plan of care. This note was dictated using voice recognition software and make contain errors or omissions. [facility] Disclaimer: The information contained in this section may have been updated after the patient was seen, as this information can be updated by other users. Medical History (Reviewed 01/24/22 @ 09:07 by VALORIE Munoz
== END ==
PROVIDERS: PCP Family Medicine; Visit Provider Nurse Practitioner Family
DX: M51.16 Intervertebral disc disorders with radiculopathy, lumbar region (principal); M96.1 Postlaminectomy syndrome, not elsewhere classified; M79.672 Pain in left foot
CPT/HCPCS: 99212; G0463

== ENCOUNTER → 2022-02-23 10:08 | Outpatient (POV) | payer OTHER, SELFPAY ==
[2022-02-23 10:15] VITALS: BP 119/80; PULSE 79; RESP 18; O2SAT 97; BMI 34.9
--- NOTE | 2022-02-23 10:38 | EXP.PAIN.SOA ---
[facility] Pain Management SOAP Note Subjective:: Patient is a pleasant 46-year-old male who presents today for follow-up. We are currently treating the patient for degenerative disc disease of lumbar spine with lumbar radiculopathy symptoms, postlaminectomy syndrome, CRPS lower limb. Today the patient rates his pain a 4 out of 10. Patient denies any new trauma or injury. Patient denies any change location or type of pain he experiences. Patient does state he is experiencing some burning around his lumbar incision sites however he is been using his compounding cream to provide additional improvement. Patient states his spinal cord stimulator is doing well and that he has not had to have reprogramming in the last several weeks. Patient states he frequently uses the SI program on his device and will go between it and the paresthesia and it provides significant improvement. Patient states he still continues to have some pain in his left foot. Patient states that he has been to see Dr. Hernadnez who is released him from her care. Patient states that he did have a bump pop up on his left foot and was told it is just from his continuous brace use and that he was recommended to get lambswool to go around this site in his brace. Patient previously had multiple surgeries following a lawnmower accident in 2020 that resulted in CRPS symptoms of his lower extremity. 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 Patient is currently prescribed methocarbamol at night and he states this does well. His Jai is [id number]. Its been reviewed and appropriate. Review of Systems: General: No recent weight changes, no fever, no sleep disturbances Respiratory: No cough, no shortness of air, no recurring pulmonary infections Cardiovascular/peripheral vascular: No chest pain, no palpitations, no edema, no shortness of breath Gastrointestinal: No new onset incontinence, normal bowel movements reported Genitourinary: No new onset incontinence Musculoskeletal: Low back pain, left foot pain Psychiatric: [Normal mood/affect] Neurological: [Denies weakness in extremities], [denies balance issues] Objective:: Physical Exam: General: Alert and oriented x3, no acute distress, pleasant and cooperative Lungs: Respirations even and unlabored, symmetrical chest expansion Eyes: PERRL Musculoskeletal: Flexion and extension of lumbar [spine] somewhat guarded secondary to pain, [antalgic gait noted] Neurological: Speech clear, no gross sensory deficit Assessment:: Degenerative disc disease of lumbar spine with lumbar radiculopathy symptoms, postlaminectomy syndrome, CRPS syndrome lower limb Plan:: Patient continues to experience some low back pain and left leg pain however he is doing well with his [employer] spinal cord stimulator. I have counseled the patient that he is released from his previous postsurgical restrictions. Patient will return to clinic in 3 months for reevaluation of symptoms and follow-up. Patient has been instructed to contact the clinic with any concerns before the next appointment. Dr. Ortiz has reviewed this note and agrees with this plan of care. This note was dictated using voice recognition software and make contain errors or omissions. [facility] Disclaimer: The information contained in this section may have been updated after the patient was seen, as this information can be updated by other users. Medical History Abnormal EKG Allergies Chest pain Cholecystectomy planned Gout History of back pain History of COVID-19 History of MRSA infection Hypertension Near syncope Palpitations Tonsillectomy planned Surgical History H/O foot surgery H/O wisdom tooth extraction History of back surgery History of surgery Family History Father Lung cancer Mother Lung cancer Moth
== END ==
PROVIDERS: PCP Family Medicine; Visit Provider Nurse Practitioner Family
DX: M51.16 Intervertebral disc disorders with radiculopathy, lumbar region (principal); M96.1 Postlaminectomy syndrome, not elsewhere classified; Z79.899 Other long term (current) drug therapy
CPT/HCPCS: 99212; G0463

== ENCOUNTER 2022-03-24 08:15 | Emergency (ER) | payer OTHER, SELFPAY ==
[2022-03-24 08:16] VITALS: BP 130/83; PULSE 90; RESP 20; TEMP 36.6; O2SAT 99; BMI 34.7
--- NOTE | 2022-03-24 08:21 | HMH.EDFALL ---
Discharge Plan Disposition Patient Disposition: Home, Self-Care Condition: Fair Chief Complaint: Fall Prescriptions Prescriptions: No Action allopurinol 300 mg tablet 300 mg PO DAILY dextroamphetamine-amphetamine 20 mg capsule,extended release 24hr 20 mg PO DAILY ibuprofen 800 mg tablet 800 mg PO BID 30 Days Qty: 60 3RF methocarbamol 750 MG tablet 750 mg PO Q8H hydrochlorothiazide 25 MG tablet 25 mg PO DAILY Rx Instructions: Take 1 tablet by mouth once daily lisinopril 40 MG tablet 40 mg PO DAILY Rx Instructions: Take 1 tablet by mouth once daily tramadol 50 mg tablet 50 mg PO HS Referrals Follow up/Referrals: Minh Pop MD [Primary Care Provider] - See instructions Activity Restrictions/Add. Instructions Additional Instructions/Restrictions: Return to the emergency department immediately if you feel worse in any way. Follow-up with your primary care physician in about 3 to 5 days if you do not improve in any way. You may take [id number] ibuprofen and/or Tylenol for pain. Do not lift anything heavier than 5 pounds. Avoid prolonged stooping or sitting. Clinical Impressions Clinical Impression: Sprain of left foot, Low back pain Instructions Patient Instructions: DI for Chronic Pain -- Adult Discharge ED Provider: Amanuel Stephens [facility] General Chief Complaint: Fall Stated Complaint: Fall@work 03/24 0800 LT leg pain RT hand back pain Time Seen by Provider: 03/24/22 08:21 Mode of Arrival: Ambulatory Source of Information: Patient History of Present Illness HPI Narrative: The patient presents to the emergency department complaining of having fallen after slipping on ice at work approximately half an hour ago. He has a history of chronic low back pain and is complaining of increased pain in that area. He also has a history of extensive left ankle/foot surgery. He wears a brace routinely. He states that there is increased pain in that area as well. He denies any wrist pain. He denies any head injury. He denies any neck injuries. He denies loss of consciousness. complaint: fall Onset (ago): minute(s) (40) Fall from: walking Fall witnessed: no Place fall occurred: work Loss of consciousness: none Prolonged down time: no Related Data Home Medications Medication Instructions Recorded Confirmed allopurinol 300 mg tablet 300 mg PO DAILY GOUT 03/21/21 03/21/22 dextroamphetamine-amphetamine ER 20 mg PO DAILY ADHD 05/02/21 03/21/22 20 mg 24hr capsule,extend release hydrochlorothiazide 25 mg tablet 25 mg PO DAILY HTN 09/08/21 03/21/22 lisinopril 40 mg tablet 40 mg PO DAILY HTN 09/08/21 03/21/22 methocarbamol 750 mg tablet 750 mg PO Q8H Pain 09/08/21 03/21/22 tramadol 50 mg tablet 50 mg PO HS Pain 12/22/21 03/21/22 Previous Rx's Medication Instructions Recorded ibuprofen 800 mg tablet 800 mg PO BID pain, mild 30 days 02/09/21 #60 tabs Allergies Allergy/AdvReac Type Severity Reaction Status Date / Time sulfamethoxazole AdvReac Intermediate Rash Verified 03/21/22 14:29 [From Bactrim] trimethoprim [From Bactrim] AdvReac Intermediate Rash Verified 03/21/22 14:29 PFSH PFS Disclaimer: The information contained in this section may have been updated after the patient was seen, as this information can be updated by other users. Medical History Abnormal EKG Allergies Chest pain Cholecystectomy planned Gout History of back pain History of COVID-19 History of MRSA infection Hypertension Near syncope Palpitations Tonsillectomy planned Surgical History H/O foot surgery H/O wisdom tooth extraction History of back surgery History of surgery Family History Father Lung cancer Mother Lung cancer Mother A-fib Social History (Reviewe
--- NOTE | 2022-03-24 08:25 | XR_ITS ---
FINAL REPORT CLINICAL HISTORY: Fall low back injury FINDINGS: LUMBAR SPINE Three views were obtained. There are postoperative changes from lumbosacral fusion. There is no acute fracture. There is no malalignment. The disc spaces are preserved. There is no soft tissue abnormality. A spinal stimulator enters the spinal canal at the L1-2 level, directed cephalad. IMPRESSION: No acute bony abnormality. Reviewed, Interpreted and Dictated by Meghan Manzo MD Transcribed by Rosa Isela Lind Authenticated and [facility]
--- NOTE | 2022-03-24 08:25 | XR_ITS ---
FINAL REPORT CLINICAL HISTORY: Fall and injury COMPARISON: 10/10/2021 FINDINGS: LEFT ANKLE 3 views were obtained. There are postoperative changes of the lateral malleolus. There is a chronic appearing avulsion fracture of the tip of the lateral malleolus. There is no acute fracture or dislocation. The joint spaces are intact. There is no soft tissue abnormality. IMPRESSION: No acute bony abnormality. Reviewed, Interpreted and Dictated by Meghan Manzo MD Transcribed by Rosa Isela Lind Authenticated and [facility]
--- NOTE | 2022-03-24 08:54 | PC.NURSE ---
organic section technical lead here to get patient for x-ray
--- NOTE | 2022-03-24 08:55 | PC.NURSE ---
pt going to xray via w/c
--- NOTE | 2022-03-24 09:25 | PC.NURSE ---
Rounded on patient; patient needs to use the bathroom. Lab called to come collect for workers comp.
[2022-03-24 10:18] VITALS: BP 135/76; PULSE 79; RESP 17; TEMP 36.6; O2SAT 99
== END 2022-03-24 10:24 | disposition home or self-care (01) ==
PROVIDERS: Emergency Provider Emergency Medicine; PCP Family Medicine
DX: S93.602A Unspecified sprain of left foot, initial encounter (principal); M54.50 Low back pain, unspecified; W01.0XXA Fall on same level from slipping, tripping and stumbling without subsequent striking against object, initial encounter; Y99.0 Civilian activity done for income or pay; G89.29 Other chronic pain
CPT/HCPCS: 72100; 73600; 96372; 99284

== ENCOUNTER → 2022-03-27 10:21 | Outpatient (POV) | payer OTHER, SELFPAY ==
[2022-03-27 11:01] VITALS: BP 121/59; PULSE 71; RESP 18; O2SAT 97; BMI 35.6
--- NOTE | 2022-03-27 13:13 | EXP.PAIN.SOA ---
[facility] Pain Management SOAP Note Subjective:: Patient is a pleasant 46-year-old male who presents today for follow-up. We are currently treating the patient for degenerative disc disease of lumbar spine with lumbar radiculopathy symptoms, postlaminectomy syndrome, CRPS lower limb. Today the patient rates his pain a 7 out of 10. Patient states on Sunday he did slip on ice and fell hitting his low back. Patient states he did have follow-up imaging and states there were no fractures found. Patient also states that his spinal cord stimulator remained in place and had not moved. Patient does describe this as a constant aching, throbbing sensation that is worse with increased activity or certain movements. Patient states that this does affect his ability to perform activities of daily living such as light cooking and cleaning. Patient states he frequently cannot stand prolonged walking, standing, sitting due to the pain. Patient states he has adjusted his spinal cord stimulator to try other programming however his pain continues since his recent fall and is not affecting it. patient states that he is also had injections into his left foot by Dr. Hamm's office recently. Patient states this did provide significant improvement along that extremity. Patient states he is scheduled to see Dr. Birmingham here in the next week however this is not related to any ongoing cardiac issues but is just to refill his blood pressure medication. Review of Systems: General: No recent weight changes, no fever, no sleep disturbances Respiratory: No cough, no shortness of air, no recurring pulmonary infections Cardiovascular/peripheral vascular: No chest pain, no palpitations, no edema, no shortness of breath Gastrointestinal: No new onset incontinence, normal bowel movements reported Genitourinary: No new onset incontinence Musculoskeletal: Low back pain Psychiatric: [Normal mood/affect] Neurological: [Denies weakness in extremities], [denies balance issues] Objective:: Physical Exam: General: Alert and oriented x3, no acute distress, pleasant and cooperative Lungs: Respirations even and unlabored, symmetrical chest expansion Eyes: PERRL Musculoskeletal: Flexion and extension of lumbar [spine] somewhat guarded secondary to pain, [antalgic gait noted] extreme point tenderness along right SI and moderate point tenderness along left SI with positive bilateral Jose's, Shayne's, Gaenslen's, compression and distraction exam Neurological: Speech clear, no gross sensory deficit ORT score updated with low risk Assessment:: Degenerative disc disease of lumbar spine with lumbar radiculopathy symptoms, postlaminectomy syndrome, CRPS lower limb, sacroiliitis Plan:: Patient is experiencing significant pain along his low back radiating into his bilateral hips related to a recent fall on ice. Patient did have limited range of motion of his lumbar spine along with extreme point tenderness at his right SI and moderate point tenderness at his left SI and positive bilateral Jose's, Shayne's, Gaenslen's, compression and distraction exam. I have discussed with the patient that he may benefit from diagnostic bilateral SI injections. Risk and benefits were discussed with the patient. He would like to proceed forward with this plan of care. I have also discussed with the patient that if he does not get beneficial relief following these injections we will contact [employer] to see about reprogramming his device. We will schedule the patient for diagnostic bilateral SI injections. Patient has been instructed to contact the clinic with any concerns before the next appointment. Dr. Ortiz has reviewed this note and agrees with this plan of care. This note was dictated using voice recognition software and make contain errors or omissions. [facility] Disclaimer: The information contained in this section may have been updated after the patient was seen, as this information can be updated by other user
== END ==
PROVIDERS: PCP Family Medicine; Visit Provider Nurse Practitioner Family
DX: M51.16 Intervertebral disc disorders with radiculopathy, lumbar region (principal); M96.1 Postlaminectomy syndrome, not elsewhere classified; M46.1 Sacroiliitis, not elsewhere classified
CPT/HCPCS: 99212; G0463

== ENCOUNTER 2022-04-04 08:17 | Day surgery (SDC) | payer OTHER, SELFPAY ==
[2022-04-04 08:29] VITALS: BP 144/75; PULSE 66; RESP 18; TEMP 36.3; O2SAT 100; BMI 35.6
[2022-04-04 08:52] VITALS: BP 139/77; PULSE 68; RESP 18; O2SAT 98
[2022-04-04 08:53] VITALS: BP 139/77; PULSE 68; RESP 18; O2SAT 98
[2022-04-04 08:57] VITALS: BP 127/81; PULSE 66; RESP 18; O2SAT 100
--- NOTE | 2022-04-04 09:19 | P.PCN_ITS ---
Procedure Date: 04/04/22 Time: 09:00 Anesthesiologist:: Richard Fam CRNA Complications:: None Pre-procedure Diagnosis:: Bilateral sacroiliitis Post-procedure Diagnosis:: Same. Indications for Procedure:: Very pleasant 47-year-old male comes to clinic today for bilateral sacroiliac joint injection. Patient complains of low lumbar pain bilaterally. Buttock pain bilaterally. Upon examination the patient has extreme point tenderness over the bilateral sacroiliac joints. He has had multiple lumbar spine injections. However, never bilateral sacroiliac joint injections. He rates his pain 8/10 Procedure Details:: Procedure: Bilateral sacroiliac joint injections under fluoroscopy Informed consent was obtained and the risks and benefits of the procedure were explained to the patient.~ The patient was taken to the procedure room and noninvasive monitors were placed including a noninvasive blood pressure cuff and pulse oximeter.~ The patient was placed prone on the procedure table. Both hips were cleansed using Betadine as a cleansing solution. C-arm fluoroscopy was used to view the right sacroiliac joint.~ The skin and subcutaneous tissues were anesthetized using lidocaine 1.5% and a 25-gauge needle.~ After this, a 22-gauge spinal needle was inserted under fluoroscopic guidance into the inferior aspect of the right sacroiliac joint.~ Omnipaque dye was injected and good spread was seen throughout the joint.~ After this, approximately 5 mL of bupivacaine, 0.25% and Depo-Medrol, 40 mg was incrementally injected into the right sacroiliac joint. We then moved to the left sacroiliac joint.~ The skin and subcutaneous tissues were anesthetized using lidocaine 1.5% and a 25-gauge needle.~ After this, a 22- gauge spinal needle was inserted under fluoroscopic guidance into the inferior aspect of the left sacroiliac joint.~ Omnipaque dye was injected and good spread was seen throughout the joint. After this, approximately 5 mL of bupivacaine, 0.25% and Depo-Medrol, 40 mg was incrementally injected into the left sacroiliac joint.~ The patient tolerated the procedure well with no complications. The patient was observed in the Pain Clinic and then was discharged home neurologically intact. Plan and Disposition:: Patient was discharged without incident.
== END 2022-04-04 08:57 | disposition home or self-care (01) ==
PROVIDERS: PCP Family Medicine; Visit Provider Nurse Anesthetist, Certified Registered
DX: M46.1 Sacroiliitis, not elsewhere classified (principal)
CPT/HCPCS: 27096; G0260; J1030

== ENCOUNTER → 2022-04-20 08:41 | Outpatient (POV) | payer OTHER, SELFPAY ==
--- NOTE | 2022-04-20 09:17 | EXP.PAIN.SOA ---
[facility] Pain Management SOAP Note Subjective:: Patient is a pleasant 47-year-old male who presents today for follow-up of bilateral SI injections on 04/04/2022. We are currently treating the patient for degenerative disc disease of lumbar spine with lumbar radiculopathy symptoms, postlaminectomy syndrome, CRPS lower limb, sacroiliitis. Today he states he has had at least 75% improvement following these injections and feels like it is still providing additional relief. He rates his pain a 5 out of 10. Patient denies any new trauma or injury. Patient denies any change location or type of pain he experiences. Patient states that before he left the clinic when he got these injections he felt 100% relief. Patient does have a [employer] spinal cord stimulator in place and states this is working well and does not need any additional adjustments. Patient does have a history of multiple surgeries to his left foot due to a lawnmower accident. Patient states he does continue to wear his leg brace that helps however occasionally this will aggravate the lateral aspect of his left foot and create more burning sensations. Patient does use his compounding cream at this site and states it does provide significant improvement. Patient's Jai is [id number]. Its been reviewed and appropriate. Review of Systems: General: No recent weight changes, no fever, no sleep disturbances Respiratory: No cough, no shortness of air, no recurring pulmonary infections Cardiovascular/peripheral vascular: No chest pain, no palpitations, no edema, no shortness of breath Gastrointestinal: No new onset incontinence, normal bowel movements reported Genitourinary: No new onset incontinence Musculoskeletal: Left foot pain, low back pain Psychiatric: [Normal mood/affect] Neurological: [Denies weakness in extremities], [denies balance issues] Objective:: Physical Exam: General: Alert and oriented x3, no acute distress, pleasant and cooperative Lungs: Respirations even and unlabored, symmetrical chest expansion Eyes: PERRL Musculoskeletal: Flexion and extension of lumbar [spine] somewhat guarded secondary to pain, [antalgic gait noted] Neurological: Speech clear, no gross sensory deficit ORT score updated with low risk Assessment:: Degenerative disc disease of lumbar spine with lumbar radiculopathy symptoms, postlaminectomy syndrome, CRPS lower limb, sacroiliitis Plan:: Patient has had significant improvement of his chronic SI symptoms with his last bilateral injections and does not require any additional injective therapy at this time. Patient did have limited range of motion of his lumbar spine during today's visit. I will send in a new order of compounding cream and I have counseled the patient that he may be a beneficial candidate of a SI stabilization procedure in the future. Risk and benefits and educational handouts were given at today's visit. Patient will return to clinic in 3 months for reevaluation of symptoms and plan of care. Patient has been instructed to contact the clinic with any concerns before the next appointment. Dr. Ortiz has reviewed this note and agrees with this plan of care. This note was dictated using voice recognition software and make contain errors or omissions. [facility] Disclaimer: The information contained in this section may have been updated after the patient was seen, as this information can be updated by other users. Medical History Abnormal EKG Allergies Chest pain Cholecystectomy planned Gout History of back pain History of COVID-19 History of MRSA infection Hypertension Near syncope Palpitations Tonsillectomy planned Surgical History H/O foot surgery X2 H/O wisdom tooth extraction History of back surgery History of surgery LEFT THUMB SUGERY Family History Father Lung canc
[2022-04-20 09:20] VITALS: BP 121/72; PULSE 63; RESP 18; O2SAT 98; BMI 35.6
== END ==
PROVIDERS: PCP Family Medicine; Visit Provider Nurse Practitioner Family
DX: M51.16 Intervertebral disc disorders with radiculopathy, lumbar region (principal); M96.1 Postlaminectomy syndrome, not elsewhere classified; M46.1 Sacroiliitis, not elsewhere classified
CPT/HCPCS: 99212; G0463

== ENCOUNTER → 2022-05-08 10:23 | Outpatient (POV) | payer OTHER, SELFPAY ==
[2022-05-08 10:30] VITALS: BP 118/46; PULSE 78; RESP 20; BMI 34.9
--- NOTE | 2022-05-08 11:38 | EXP.PAIN.SOA ---
[facility] Pain Management SOAP Note Subjective:: Patient is a pleasant 47-year-old male who presents today for follow-up. We are currently treating the patient for degenerative disc disease of lumbar spine with lumbar radiculopathy symptoms, postlaminectomy syndrome, CRPS lower limb, chronic sacroiliitis, left foot pain. Today he rates his pain a 10 out of 10. Patient denies any new trauma or injury. Patient denies any change location or type of pain he experiences. Patient states that he did do more walking this weekend and feels like he has because his right SI to flareup. Patient has been using his [employer] spinal cord stimulator programming to provide some additional relief however he has to turn this up high in order to notice a difference. Patient has had multiple SI injections in the past that did provide significant relief of at least 75% improvement lasting typically 2 weeks. Patient does describe his pain as a aching with locking sensation. He often states that when he is getting up from a seated position he will have sharp grinding sensations that run down his right leg and stops at his knee. Patient does states walking is worse for his pain. He has tried his compounding cream however has not noticed significant relief at this area. At our last visit we did discuss the SI stabilization procedure and educational handouts were given. His Jai is [id number]. Its been reviewed and appropriate. Review of Systems: General: No recent weight changes, no fever, no sleep disturbances Respiratory: No cough, no shortness of air, no recurring pulmonary infections Cardiovascular/peripheral vascular: No chest pain, no palpitations, no edema, no shortness of breath Gastrointestinal: No new onset incontinence, normal bowel movements reported Genitourinary: No new onset incontinence Musculoskeletal: Low back pain, right leg pain Psychiatric: [Normal mood/affect] Neurological: [Denies weakness in extremities], [denies balance issues] Objective:: Physical Exam: General: Alert and oriented x3, no acute distress, pleasant and cooperative Lungs: Respirations even and unlabored, symmetrical chest expansion Eyes: PERRL Musculoskeletal: Flexion and extension of lumbar [spine] somewhat guarded secondary to pain, [antalgic gait noted] extreme point tenderness at right SI with positive right Jose's, Shayne's, Gaenslen's, compression and distraction exam Neurological: Speech clear, no gross sensory deficit Assessment:: Degenerative disc disease of lumbar spine with lumbar radiculopathy symptoms, postlaminectomy syndrome, CRPS of the left lower limb, chronic sacroiliitis, left foot pain Plan:: Patient is experiencing significant pain in his low back along the right side with radiating symptoms into his right upper thigh stopping at his knee. Patient did have limited range of motion of his lumbar spine along with extreme point tenderness at his right SI and positive right Jose's, Shayne's, Gaenslen's, compression and distraction exam. Patient has tried and failed conservative therapy such as oral medications, heat and ice, topicals, physical therapy, at home stretching and exercising for longer than 6 weeks. I have discussed with the patient that he would benefit from the right trans LOC SI stabilization procedure. Risk and benefits were discussed with the patient along with 6-week postop restrictions and he would like to proceed forward with this plan of care. We will schedule the patient for a right SI stabilization procedure. Patient has been instructed to contact the clinic with any concerns before the next appointment. Dr. Ortiz has reviewed this note and agrees with this plan of care. This note was dictated using voice recognition software and make contain errors or omissions. [facility] Disclaimer: The information contained in this section may have been updated after the patient was seen, as this information can be updated by other users. Medical History (
== END ==
PROVIDERS: PCP Family Medicine; Visit Provider Nurse Practitioner Family
DX: M51.16 Intervertebral disc disorders with radiculopathy, lumbar region (principal); M96.1 Postlaminectomy syndrome, not elsewhere classified; M46.1 Sacroiliitis, not elsewhere classified; M79.672 Pain in left foot
CPT/HCPCS: 99212; G0463

== ENCOUNTER → 2022-05-17 09:07 | Outpatient (CLI) | payer OTHER, SELFPAY ==
[2022-05-17 10:25] LABS: Basophils % 0.5 % (0.1-2.0); Eosinophils # 0.2 K/mm3 (0.0-0.4); Eosinophils % 2.6 % (0.1-12.0); Hematocrit 44.4 % (42.0-52.0); Hemoglobin 14.3 g/dL (14.1-18.0); Lymphocytes # 1.9 K/mm3 (0.7-4.5); Lymphocytes % 20.3 % (10-50); Mean Corpuscular HGB Conc 32.2 g/dL (31.8-35.4); Mean Corpuscular Volume 90.1 fl (80-94); Mean Platelet Volume 8.4 fl (7.4-10.4); Monocytes # 0.5 K/mm3 (0.1-1.0); Monocytes % 5.7 % (1.7-9.3); Neutrophils # 6.6 K/mm3 (1.8-7.8); Neutrophils % 70.9 % (37.0-80.0); Platelet Count 353 K/mm3 (142-424); Red Blood Count 4.92 M/mm3 (4.60-6.20); Red Cell Distribution Width 14.1 % (11.5-17.5); White Blood Count 9.3 K/mm3 (4.8-10.8)
[2022-05-17 10:46] LABS: Anion Gap 10.7 mEq/L (5-15); Blood Urea Nitrogen 14 mg/dl (9-20); Carbon Dioxide 26 mmol/L (22.0-30.0); Chloride 103 mmol/L (98-107); Estimated Glomerular Filt Rate 104 ml/min (>60); GFR (African American) 126 ML/MIN (>60); Glucose 91 mg/dl (74-100); Potassium 4.7 mmoL/L (3.5-5.1); Sodium 135 mmol/L (136-145)
== END ==
PROVIDERS: PCP Family Medicine; Visit Provider Anesthesiology
DX: Z01.812 Encounter for preprocedural laboratory examination (principal); M46.1 Sacroiliitis, not elsewhere classified
CPT/HCPCS: 36415; 80048; 85025

== ENCOUNTER 2022-05-19 06:05 | Day surgery (SDC) | payer OTHER, SELFPAY ==
[2022-05-16 15:10] VITALS: BMI 34.9
[2022-05-19] VITALS (10 sets, daily range): BP systolic 103–146; BP diastolic 63–97; PULSE 57–78; RESP 16–19; TEMP 36.1–43; O2SAT 97–100
--- NOTE | 2022-05-19 06:55 | P.PN_ITS ---
[facility] Disclaimer: The information contained in this section may have been updated after the patient was seen, as this information can be updated by other users. Medical History Abnormal EKG Allergies Chest pain Cholecystectomy planned Gout History of back pain History of COVID-19 History of MRSA infection Hypertension Near syncope Palpitations Tonsillectomy planned Surgical History H/O foot surgery H/O wisdom tooth extraction History of back surgery History of surgery Family History Father Lung cancer Mother Lung cancer Mother A-fib Social History Smoking Status: Never smoker alcohol intake: former substance use type: denies use current occupational status: employed Travel in the last 8 weeks: None household members: spouse housing: house current occupational exposures/hazards: Yes caffeine: Yes [facility] Anesthesia Checklist Patient Identification Patient Identification: Arm Band and Family Structural Data Admitted From: Home Planned Operative Procedure/s: SI Stabilization Consent for Planned Operative Procedure(s) Verified: Yes Verified Documents: Surgical Consent NPO Status Verified Time NPO: 00:00 Additional verifications Patient : No Anesthesia Reactions: No Hx Blood Transfusions: No Blood Transfusion Reaction: No Cephalosporin Allergy: No Previous Colonoscopy: No Airway Assessment C-Spine Mobility Assessed: Yes TMJ Mobility Assessed: Yes Dentition: Good Dentition Neurological Assessment Level of Consciousness: Awake, Alert, Appropriate and Follows Commands Hx Seizures: No Numbness or tingling in extremities: No Anesthesia Plan Anesthesia Risk discussed: Yes ASA Class: II Anesthesia Type: MAC Preoperative Comments Pre-Operative Comments: Swollen throat and uvula last surgery, relieved with Benadryl Hypertension, (Allergy to Bactrim, Pipe Coldspring's Syndrome, blisters)
--- NOTE | 2022-05-19 10:34 | EXP.OP.NOTE ---
Date of procedure: 05/19/22 Pre-op Diagnosis:: Sacroiliitis Post-op Diagnosis:: Same Procedure performed:: Right SI joint fusion Surgeon:: Ambrose Ortiz MD SPOOL CARRIER:: Other Anesthesia: MAC Estimated blood loss (mL): 5 Clinical Note:: This patient is a pleasant 47-year-old white male who we are treating for degenerative disc disease of lumbar spine with lumbar radiculopathy symptoms and postlaminectomy syndrome lumbar spine. He does have a [employer] spinal cord stimulator in place. He also suffers from chronic sacroiliitis. He has had 2 diagnostic blocks with 80 to 100% relief in his pain symptoms. He has gotten pain relief for 1 to 2 weeks after these injections however is not long-lasting. He presents for right SI joint fusion today. Operative findings:: None Operative note:: Informed consent was obtained and the risk and benefits of the procedure were explained to the patient. The patient was taken to the operating room and placed prone on the procedure table. He was prepped and draped in sterile fashion. We took a view of the right SI joint. We identified the lateral edge of the right SI joint. A sacral outlet view of the sacrum was obtained. The PSIS was palpated and marked off. The lines were drawn on the skin and aligned overlying the S1 and S2 neural foramen. An approximate 1 cm incision was made just lateral to the PSIS between the S1 and S2 markings. A Jamshidi needle was placed through the incision in a cranial to caudal and lateral to the medial trajectory using a mallet under intermittent fluoroscopy to a stop depth. Trocar depth was confirmed under a sacral inlet view to a depth that did not breach the anterior sacral cortex. The guidewire was placed through the trocar and the needle removed over the wire. The ilium and sacral cortex were drilled and decorticated under live fluoroscopy to the 40 mm stop depth with no advancement of the guidewire noted. A 50 mm length transloc screw was selected. The selected screw implant was placed onto the company truck driver and screwed into the created channel until it was flush with the ilium transfixing and compressing the joint. Next a second transloc screw implant was placed in a similar fashion approximately 8 to 10 mm inferior to the first implant. The second screw was a 40 mm transloc screw.The incision was irrigated and subcutaneous tissue was closed with 2-0 Vicryl followed by 4-0 nylon. The patient tolerated the procedure well with no complications. He was taken recovery in stable condition. Patient was discharged home neurologic intact with good relief of pain symptoms. He was discharged with Bactrim DS twice a day for 5 days. Plan and disposition: We will follow-up with this patient in 1 week for wound check and in 2 weeks for suture removal. If he has any problems or questions she is to call us back in the pain clinic. Condition: stable Disposition: PACU Complications:: None
--- NOTE | 2022-05-19 11:26 | SUR.PHASEII ---
1118 - Dr. Ortiz @ bedside speaking w/ pt and . aware of pain. PRN med given as ordered per APR.
== END 2022-05-19 11:45 | disposition home or self-care (01) ==
PROVIDERS: PCP Family Medicine; Visit Provider Anesthesiology
PROC: (CPT 27279; principal; 2022-05-19 07:30)
DX: M46.1 Sacroiliitis, not elsewhere classified (principal); M51.16 Intervertebral disc disorders with radiculopathy, lumbar region; M96.1 Postlaminectomy syndrome, not elsewhere classified; Z96.82 Presence of neurostimulator; Z79.899 Other long term (current) drug therapy
CPT/HCPCS: 27279; 96374; C1713; J2405; J2704; J3370

== ENCOUNTER → 2022-06-01 14:56 | Outpatient (POV) | payer OTHER, SELFPAY ==
--- NOTE | 2022-06-01 15:15 | EXP.PAIN.SOA ---
[facility] Pain Management SOAP Note Subjective:: This patient is a very pleasant 47-year-old male that comes our clinic today for follow-up visit after having the trans lock system placed in the right sacroiliac joint on 05/19/2022. Patient reports significant improvement terms of his right sacroiliac joint pain. He rates his pain today 2/10. Patient ambulating without difficulty. Sitting without difficulty. Transitioning from sitting to standing without difficulty. Patient requesting to go back to work. He is currently on light duty prior to surgery. 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 I told him I felt it would be fine for him to go back. Also, incisions are clean and dry. He will return next week to have the sutures and chente removed. Objective:: Patient is awake alert Mcgregor x3. In no acute distress. Flex tension lumbar spine normal. Deep tendon reflexes upper lower extremities normal. Motor strength upper and lower extremities normal. There is no gross sensory deficit. Gait is normal Assessment:: Right sacroiliitis. Degenerative disc disease lumbar spine multilevels lumbar radiculopathy Plan:: Patient will return next week for suture and staple removal from the 2 incision sites of the trans lock system. We will give him a note to return to work light duty. No lifting. 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 I think this will be fine. [facility] Disclaimer: The information contained in this section may have been updated after the patient was seen, as this information can be updated by other users. Medical History Abnormal EKG Allergies Chest pain Cholecystectomy planned Gout History of back pain History of COVID-19 History of MRSA infection Hypertension Near syncope Palpitations Tonsillectomy planned Surgical History H/O foot surgery H/O wisdom tooth extraction History of back surgery History of surgery Family History Father Lung cancer Mother Lung cancer Mother A-fib Social History Smoking Status: Never smoker alcohol intake: former substance use type: denies use current occupational status: employed Travel in the last 8 weeks: None household members: spouse housing: house current occupational exposures/hazards: Yes caffeine: Yes
[2022-06-01 15:19] VITALS: BP 134/78; PULSE 78; RESP 18; O2SAT 98; BMI 38.0
== END ==
PROVIDERS: PCP Family Medicine; Visit Provider Nurse Anesthetist, Certified Registered
DX: M51.16 Intervertebral disc disorders with radiculopathy, lumbar region (principal); M46.1 Sacroiliitis, not elsewhere classified
CPT/HCPCS: 99212; G0463

== ENCOUNTER → 2022-06-08 13:41 | Outpatient (POV) | payer OTHER, SELFPAY ==
--- NOTE | 2022-06-08 14:17 | EXP.PAIN.SOA ---
[facility] Pain Management SOAP Note Subjective:: Patient is a pleasant 47-year-old male who presents today for follow-up of right SI stabilization/fusion on 05/19/2022. We are currently treating the patient for degenerative disc disease of the lumbar spine with lumbar radiculopathy symptoms, postlaminectomy syndrome, CRPS lower limb, chronic sacroiliitis, left foot pain. Today he rates his pain a 3 out of 10. Patient denies any new trauma or injury. Patient denies any change to the location or type of pain he experiences. Patient states overall he is done well following this procedure. He did state he had not been using his left foot brace however when he applied it earlier this week he had significant pain in his right hip that mimic the previous sacroiliitis. He states he did take the brace off and had improvement however he states later that night he did have to take 2 muscle relaxers. Today he states he is feeling better however he does think he needs a special shoe made due to the difference in height when he wears his left foot brace. Patient states he does typically wear this brace every other day for additional support and stabilization. Patient does have a [employer] spinal cord stimulator in place and is doing well with this with no complications. He is prescribed compounding cream for additional help. His Jai is [id number]. Its been reviewed and appropriate. Review of Systems: General: No recent weight changes, no fever, no sleep disturbances Respiratory: No cough, no shortness of air, no recurring pulmonary infections Cardiovascular/peripheral vascular: No chest pain, no palpitations, no edema, no shortness of breath Gastrointestinal: No new onset incontinence, normal bowel movements reported Genitourinary: No new onset incontinence Musculoskeletal: Low back pain Psychiatric: [Normal mood/affect] Neurological: [Denies weakness in extremities], [denies balance issues] Objective:: Physical Exam: General: Alert and oriented x3, no acute distress, pleasant and cooperative Lungs: Respirations even and unlabored, symmetrical chest expansion Eyes: PERRL Musculoskeletal: Flexion and extension of lumbar [spine] somewhat guarded secondary to pain, [antalgic gait noted] Neurological: Speech clear, no gross sensory deficit Skin: Incision sites clean, dry, well approximated with minimal erythema, sutures and chente intact Assessment:: Degenerative disc disease of lumbar spine with lumbar radiculopathy symptoms, postlaminectomy syndrome, CRPS lower limb, chronic sacroiliitis, left foot pain, status post right SI stabilization/fusion Plan:: Patient is doing well following his right SI stabilization/fusion. His incision sites are clean, dry, well approximated with minimal erythema. He did have his sutures and chente removed during today's visit. I have counseled him to continue his postop restrictions for another 3 weeks or until his incision is fully healed. I have counseled the patient to talk to [facility] orthopedics for possible help for shoes with thicker soles to match his leg brace height. Patient will return to clinic in 1 month for reevaluation of symptoms and plan of care. Patient has been instructed to contact the clinic with any concerns before the next appointment. Dr. Ortiz has reviewed this note and agrees with this plan of care. This note was dictated using voice recognition software and make contain errors or omissions. [facility] Disclaimer: The information contained in this section may have been updated after the patient was seen, as this information can be updated by other users. Medical History Abnormal EKG Allergies Chest pain Cholecystectomy planned Gout History of back pain History of COVID-19 History of MRSA infection Hypertension Near syncope Palpitations Tonsillectomy planned Surgical History H/O foot surg
[2022-06-08 14:38] VITALS: BP 135/83; PULSE 86; RESP 18; O2SAT 98; BMI 38.0
== END ==
PROVIDERS: PCP Family Medicine; Visit Provider Nurse Practitioner Family
DX: M51.16 Intervertebral disc disorders with radiculopathy, lumbar region (principal); M96.1 Postlaminectomy syndrome, not elsewhere classified; M46.1 Sacroiliitis, not elsewhere classified; M79.672 Pain in left foot; Z98.1 Arthrodesis status
CPT/HCPCS: 99212; 99213; G0463

== ENCOUNTER → 2022-07-06 13:54 | Outpatient (POV) | payer OTHER, SELFPAY ==
[2022-07-06 14:12] VITALS: BP 120/90; PULSE 80; RESP 18; O2SAT 99; BMI 38.0
--- NOTE | 2022-07-06 14:24 | EXP.PAIN.SOA ---
[facility] Pain Management SOAP Note Subjective:: Patient is a pleasant 47-year-old male who presents today for follow-up. We are currently treating the patient for degenerative disc disease of lumbar spine with lumbar radiculopathy symptoms, postlaminectomy syndrome, CRPS of lower limb, chronic sacroiliitis, left foot pain. Today he rates his pain a 4 out of 10. Patient denies any new trauma or injury. He does state that he has noticed a catching sensation in his low back along the right side. It is higher up and states it is only at certain times with movement that he notices this. He states he has been paining a motorcycle and has been sitting on a stool while he does this. He does believe that he may have aggravated something for the prolonged positioning. He does state that he is finishing this bike up tomorrow and is also going to try additional programming on his spinal cord stimulator for additional relief. He states in past he has also gotten significant improvement with swimming and that they are planning on opening the pool next week. From our last visit he did get a brace for his right leg in order to match up the height difference with his foot brace for the left. Patient states he has had overall better improvement with this. Patient does have a [employer] spinal cord stimulator in place that he states is continuing to provide additional relief. He states he does not need any adjustments at this time. Patient was previously prescribed Flexeril that he does state provided additional relief. He is requesting a refill at today's visit. Patient did have a SI stabilization on 05/19/2022 of his right side and denies any other issues following this procedure. He is currently managed with compounding cream and Vyvanse 40 mg daily from his primary care doctor. His Jai is [id number]. Its been reviewed and appropriate. Review of Systems: General: No recent weight changes, no fever, no sleep disturbances Respiratory: No cough, no shortness of air, no recurring pulmonary infections Cardiovascular/peripheral vascular: No chest pain, no palpitations, no edema, no shortness of breath Gastrointestinal: No new onset incontinence, normal bowel movements reported Genitourinary: No new onset incontinence Musculoskeletal: Low back pain right-sided Psychiatric: [Normal mood/affect] Neurological: [Denies weakness in extremities], [denies balance issues] Objective:: Physical Exam: General: Alert and oriented x3, no acute distress, pleasant and cooperative Lungs: Respirations even and unlabored, symmetrical chest expansion Eyes: PERRL Musculoskeletal: Flexion and extension of lumbar [spine] somewhat guarded secondary to pain, [antalgic gait noted] Neurological: Speech clear, no gross sensory deficit Assessment:: Degenerative disc disease of lumbar spine with lumbar radiculopathy symptoms, postlaminectomy syndrome, CRPS of lower limb, chronic sacroiliitis, left foot pain, status post right SI stabilization procedure Plan:: I will refill his Flexeril 10 mg 3 times daily and provide a 1 month supply of this medication. 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 Patient will return to clinic in 1 month for reevaluation of symptoms and plan of care. Patient has been instructed to contact the clinic with any concerns before the next appointment. Dr. Ortiz has reviewed this note and agrees with this plan of care. This note was dictated using voice recognition software and make contain errors or omissions. [facility] Disclaimer: The information contained in this section may have been updated after the patient was seen, as this information can be updated by other users. Medical History Abnormal EKG Allergies Chest pain Cholecyst
== END | disposition home or self-care (01) ==
PROVIDERS: PCP Family Medicine; Visit Provider Nurse Practitioner Family
DX: M51.16 Intervertebral disc disorders with radiculopathy, lumbar region (principal); M96.1 Postlaminectomy syndrome, not elsewhere classified; M46.1 Sacroiliitis, not elsewhere classified; M79.605 Pain in left leg; Z98.890 Other specified postprocedural states; M79.672 Pain in left foot
CPT/HCPCS: 99212; G0463

== ENCOUNTER → 2022-07-12 11:26 | Outpatient (CLI) | payer OTHER, SELFPAY ==
[2022-07-12 12:40] LABS: Alanine Aminotransferase 36 U/L (12-78); Albumin Level 4.6 g/dl (3.5-5.0); Albumin/Globulin Ratio 1.8 (1.1-1.8); Alkaline Phosphatase 77 U/L (38-126); Anion Gap 17.7 mEq/L (5-15); Aspartate Amino Transferase 28 U/L (17-59); Bilirubin,Total 0.4 mg/dl (0.2-1.3); Blood Urea Nitrogen 14 mg/dl (9-20); Calcium 9.6 mg/dl (8.4-10.2); Carbon Dioxide 27 mmol/L (22.0-30.0); Chloride 99 mmol/L (98-107); Chol/HDL Ratio 3.8 (1-3.5); Cholesterol 147 mg/dl (140-200); Estimated Glomerular Filt Rate 104 ml/min (>60); GFR (African American) 126 ML/MIN (>60); Globulin 2.6 g/dL (1.3-3.2); Glucose 86 mg/dl (74-100); HDL Cholesterol 39 mg/dl (40-60); Potassium 4.7 mmoL/L (3.5-5.1); Sodium 139 mmol/L (136-145); Total Protein,Serum 7.2 g/dl (6.3-8.2); Triglycerides 160 mg/dl (30-150); Uric Acid 7.4 mg/dl (3.5-8.5); VLDL Cholesterol 32 mg/dL (0-40)
[2022-07-12 12:51] LABS: Direct LDL Cholesterol 86.65 mg/dL (100-129)
== END ==
PROVIDERS: PCP Family Medicine; Visit Provider Family Medicine
DX: I10 Essential (primary) hypertension (principal); E78.5 Hyperlipidemia, unspecified; M10.9 Gout, unspecified
CPT/HCPCS: 36415; 80053; 80061; 83735; 84550

== ENCOUNTER → 2022-08-03 09:35 | Outpatient (POV) | payer OTHER, SELFPAY ==
--- NOTE | 2022-08-03 09:49 | EXP.PAIN.SOA ---
[facility] Pain Management SOAP Note Subjective:: Patient is a pleasant 47-year-old male who presents today for follow-up. We are currently treating the patient for degenerative disc disease of the lumbar spine with lumbar radiculopathy symptoms, postlaminectomy syndrome, CRPS of the lower limb, chronic sacroiliitis, left foot pain, status post right SI stabilization procedure. Today he rates his pain a 3 out of 10. Patient denies any new trauma or injury. Patient denies any change to location or type of pain he experiences. 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 He states that this has helped improve his pain symptoms. He states he does continue to wear his foot/ankle brace every other day and continues to have some pain in this extremity. Patient does have a [employer] spinal cord stimulator in place that he states he feels like he may need additional reprogramming. Patient is currently managed with compounding cream Vyvanse 40 mg daily from an outside provider and methocarbamol 750 mg 3 times a day from our office. Patient denies any side effects from these medications. His Jai is [id number]. Its been reviewed and appropriate. Review of Systems: General: No recent weight changes, no fever, no sleep disturbances Respiratory: No cough, no shortness of air, no recurring pulmonary infections Cardiovascular/peripheral vascular: No chest pain, no palpitations, no edema, no shortness of breath Gastrointestinal: No new onset incontinence, normal bowel movements reported Genitourinary: No new onset incontinence Musculoskeletal: Low back pain, left foot/ankle pain Psychiatric: [Normal mood/affect] Neurological: [Denies weakness in extremities], [denies balance issues] Objective:: Physical Exam: General: Alert and oriented x3, no acute distress, pleasant and cooperative Lungs: Respirations even and unlabored, symmetrical chest expansion Eyes: PERRL Musculoskeletal: Flexion and extension of lumbar [spine] somewhat guarded secondary to pain, [antalgic gait noted] Neurological: Speech clear, no gross sensory deficit Assessment:: Degenerative disc disease of lumbar spine with lumbar radiculopathy symptoms, postlaminectomy syndrome, CRPS of the lower limb, chronic sacroiliitis, left foot pain, status post right SI stabilization procedure Plan:: I will contact [employer] novel[employer] sales representative to get patient reprogrammed. I will also refill his methocarbamol 750 mg 3 times a day and provide a 3 month supply of this medication. Patient will return to clinic in 2 weeks for reprogramming of his spinal cord stimulator. Patient has been instructed to contact the clinic with any concerns before the next appointment. Dr. Ortiz has reviewed this note and agrees with this plan of care. This note was dictated using voice recognition software and make contain errors or omissions. [facility] Disclaimer: The information contained in this section may have been updated after the patient was seen, as this information can be updated by other users. Medical History Abnormal EKG Allergies Chest pain Cholecystectomy planned Gout History of back pain History of COVID-19 History of MRSA infection Hypertension Near syncope Palpitations Tonsillectomy planned Surgical History H/O foot surgery H/O wisdom tooth extraction History of back surgery History of surgery Family History Father Lung cancer Mother Lung cancer Mother A-fib Social History Smoking Status: Never smoker alcohol intake: former substance use type: denies use current occupational status: employed Travel in the last 8 weeks: None household members: spouse housing: house current occu
[2022-08-03 10:49] VITALS: BP 120/80; PULSE 71; RESP 18; O2SAT 97; BMI 35.6
== END | disposition home or self-care (01) ==
PROVIDERS: PCP Family Medicine; Visit Provider Nurse Practitioner Family
DX: M51.16 Intervertebral disc disorders with radiculopathy, lumbar region (principal); M46.1 Sacroiliitis, not elsewhere classified; M79.672 Pain in left foot; M96.1 Postlaminectomy syndrome, not elsewhere classified
CPT/HCPCS: 99212; G0463

== ENCOUNTER 2022-08-15 08:11 | Emergency (ER) | payer OTHER, SELFPAY ==
[2022-08-15 08:12] VITALS: BP 135/91; PULSE 61; RESP 18; TEMP 36.7; O2SAT 100; BMI 36.3
--- NOTE | 2022-08-15 08:25 | EXP.UTC ---
Discharge Plan Disposition Patient Disposition: Home, Self-Care Condition: Good Prescriptions Prescriptions: New clindamycin HCl 300 mg capsule 300 mg PO Q8H 7 Days Qty: 21 0RF cefdinir 300 mg capsule 300 mg PO BID 7 Days Qty: 14 0RF No Action ibuprofen 800 mg tablet 800 mg PO BID PRN (Reason: pain, mild) lisinopril 40 mg tablet 40 mg PO DAILY Qty: 90 3RF Rx Instructions: Take 1 tablet by mouth once daily Vyvanse 40 mg Capsule 40 mg PO DAILY hydrocodone-acetaminophen 5-325 mg tablet 1 tab PO Q4H PRN (Reason: pain) Qty: 20 0RF methocarbamol 750 mg tablet 750 mg PO Q8H PRN (Reason: Pain) Qty: 90 2RF methocarbamol 750 mg tablet 750 mg PO TID Referrals Follow up/Referrals: Minh Pop MD [Primary Care Provider] - See instructions Activity Restrictions/Add. Instructions Additional Instructions/Restrictions: Take medication as prescribed Follow up with your Family Doctor if no improvement or any worsening of symptoms Straight to ER if swelling continues to worsen Follow up with [facility]Ye Doctor if needed Clinical Impressions Clinical Impression: Cellulitis, periorbital Instructions Patient Instructions: Cellulitis, Clindamycin, Cefdinir Discharge ED Provider: Re Murcia [facility] General Stated complaint: RT eye inflammation w/ burning Mode of Arrival: Ambulatory Source of Information: Patient Limitations: No Limitations Time Seen by Provider: 08/15/22 08:25 Description of Symptoms (Recalled from Triage Doc. by RN): Complaint of right eye brow/ eye pain an swelling for 3 days. HEENT Symptoms (Recalled from RN notes): Yes Resp Symptoms (Recalled from RN notes): No Skin Symptoms (Recalled from RN notes): No MS Symptoms (Recalled from RN notes): No Functional Status (Recalled from RN notes): wnl History of Present Illness Provider Complaint: Patient states that he has a history of MRSA and about 3 days ago he noticed a pimple like area in his right eyebrow States that he uses warm compresses and then yesterday he decided to mash it and now he is having swelling and redness in his right eyebrow that is starting to spread around his right eye worried he may have caused the infection to spread Related Data Home Medications Medication Instructions Recorded Confirmed ibuprofen 800 mg tablet 800 mg PO BID PRN pain, mild 03/29/22 08/03/22 lisdexamfetamine 40 mg capsule 40 mg PO DAILY adhd 05/19/22 08/03/22 (Vyvanse) methocarbamol 750 mg tablet 750 mg PO TID Pain 08/03/22 08/03/22 Previous Rx's Medication Instructions Recorded lisinopril 40 mg tablet 40 mg PO DAILY HTN #90 tabs 03/29/22 hydrocodone 5 mg-acetaminophen 325 1 tab PO Q4H PRN pain #20 tabs 05/19/22 mg tablet methocarbamol 750 mg tablet 750 mg PO Q8H PRN Pain #90 tabs 08/03/22 cefdinir 300 mg capsule 300 mg PO BID 7 days #14 caps 08/15/22 clindamycin HCl 300 mg capsule 300 mg PO Q8H 7 days #21 caps 08/15/22 Allergies Allergy/AdvReac Type Severity Reaction Status Date / Time sulfamethoxazole AdvReac Intermediate Rash Verified 05/16/22 15:10 [From Bactrim] trimethoprim [From Bactrim] AdvReac Intermediate Rash Verified 05/16/22 15:10 Worker's Comp Is this a Worker's Comp case?: No [facility] Disclaimer: The information contained in this section may have been updated after the patient was seen, as this information can be updated by other users. Medical History (Updated 08/15/22 @ 08:41 by Re Murcia APRN) Abnormal EKG Allergies Chest pain Cholecystectomy planned Gout History of back pain History of COVID-19 History of MRSA infection Hypertension Near syncope Palpitations Tonsillectomy planned Surgical History H/O foot surgery H/O wisdom tooth extraction History of back surgery History of surgery Family History Father Lung cancer Mother Lung can
[2022-08-15 08:47] VITALS: BP 135/91; PULSE 61; RESP 18; TEMP 36.7; O2SAT 100
== END 2022-08-15 08:49 | disposition home or self-care (01) ==
PROVIDERS: Emergency Provider Nurse Practitioner; PCP Family Medicine
DX: L03.213 Periorbital cellulitis (principal); I10 Essential (primary) hypertension; J30.2 Other seasonal allergic rhinitis
CPT/HCPCS: 99212; 99214; G0463

== ENCOUNTER → 2022-11-10 08:14 | Outpatient (POV) | payer OTHER, SELFPAY ==
--- NOTE | 2022-11-10 08:33 | EXP.PAIN.SOA ---
[facility] Pain Management SOAP Note Subjective:: Patient is a pleasant 47-year-old male who presents today for medication refill and follow-up. We are currently treating the patient for degenerative disc disease of lumbar spine with lumbar radiculopathy symptoms, sacroiliitis, lumbar postlaminectomy syndrome, CRPS of the lower limb, left foot pain, status post right SI stabilization procedure. Today he rates his pain a 9 out of 10. Patient denies any new trauma or injury. He does state that he continues to alternate using his brace on his lower left foot and then days when he is wearing it it does cause additional pain up around his right hip. Patient does state he feels like he adjust his gait while he is wearing it. He states he typically does feel better when he is not wearing the brace but he can only go about 4 days before he has to apply the device. Patient was previously getting good relief with his current compounding cream however he states that is no longer providing any additional relief. Patient does have a [employer] spinal cord stimulator in place that he states is doing exceptional and does not require any additional reprogramming. He states the last time that it was by the client care representative they were able to increase his battery life and that the programming is working well in his problem areas. Patient is currently managed with methocarbamol 750 mg 3 times a day from our office. Patient denies any side effects from this medication. He is also on Vyvanse 40 mg daily from his primary care provider. His Jai is [id number]. Its been reviewed and appropriate. Review of Systems: General: No recent weight changes, no fever, no sleep disturbances Respiratory: No cough, no shortness of air, no recurring pulmonary infections Cardiovascular/peripheral vascular: No chest pain, no palpitations, no edema, no shortness of breath Gastrointestinal: No new onset incontinence, normal bowel movements reported Genitourinary: No new onset incontinence Musculoskeletal: Low back pain, left foot pain Psychiatric: [Normal mood/affect] Neurological: [Denies weakness in extremities], [denies balance issues] Objective:: Physical Exam: General: Alert and oriented x3, no acute distress, pleasant and cooperative Lungs: Respirations even and unlabored, symmetrical chest expansion Eyes: PERRL Musculoskeletal: Flexion and extension of lumbar [spine] somewhat guarded secondary to pain, [antalgic gait noted] Neurological: Speech clear, no gross sensory deficit Assessment:: Degenerative disc disease of lumbar spine with lumbar radiculopathy symptoms, sacroiliitis, lumbar postlaminectomy syndrome, CRPS of the lower limb, left foot pain, status post right SI stabilization procedure Plan:: Patient is doing well with his current spinal cord stimulator programming and medication regimen. I will refill his methocarbamol 750 mg 3 times a day and also send in a prescription ibuprofen 800 mg 3 times daily as needed and provide a 3-month supply of these medications. I will also order the patient a different combination compounded cream patient will return to clinic in 3 months for reevaluation of symptoms and plan of care. Patient has been instructed to contact the clinic with any concerns before the next appointment. Dr. Ortiz has reviewed this note and agrees with this plan of care. This note was dictated using voice recognition software and make contain errors or omissions. [facility] Disclaimer: The information contained in this section may have been updated after the patient was seen, as this information can be updated by other users. Medical History (Updated 09/26/22 @ 14:39 by Shannan Vieyra APRN) Abnormal EKG Allergies Chest pain Cholecystectomy planned Facial flushing Gout History of back pain History of COVID-19 History of MRSA infection Hypertension Near syncope Palpitations Tonsillectomy planned Surgical History (Reviewed 09/26/22 @ 10:20 by Janice Santiago
[2022-11-10 08:34] VITALS: BP 135/79; PULSE 72; RESP 18; O2SAT 96; BMI 36.9
== END | disposition home or self-care (01) ==
PROVIDERS: PCP Family Medicine; Visit Provider Nurse Anesthetist, Certified Registered
DX: M51.16 Intervertebral disc disorders with radiculopathy, lumbar region (principal); M46.1 Sacroiliitis, not elsewhere classified; M96.1 Postlaminectomy syndrome, not elsewhere classified; G90.529 Complex regional pain syndrome I of unspecified lower limb; M79.672 Pain in left foot; Z96.82 Presence of neurostimulator
CPT/HCPCS: 99212; G0463

== ENCOUNTER → 2023-03-12 13:00 | Outpatient (POV) | payer BC, SELFPAY ==
--- NOTE | 2023-03-12 13:08 | A.OFFVIS_ITS ---
[facility] Pain Management SOAP Note Subjective:: Patient is a pleasant 47-year-old male who presents today for 3-month follow-up. We are currently treating the patient for degenerative disc disease of lumbar spine with lumbar radiculopathy symptoms, sacroiliitis, lumbar postlaminectomy syndrome, CRPS of the lower limb, left foot pain, status post right SI stabilization procedure. Today he rates his pain a 5 out of 10. Patient denies any new trauma or injury. He does state that he is experiencing increasing numbness and burning into the tops of his thighs. Patient does have a [employer] spinal cord stimulator in place however it has not been reprogrammed within the last several months. Patient does state that he does feel like he has more of a catching sensation along his right SI area. Patient did have the right SI stabilization procedure done in the past year however is unsure whether or not it has officially fused. Patient denies any recent imaging. 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 Patient states he is increasing his activity on a regular basis and doing his job. Patient does believe that the increased movement does help with his overall daily stiffness however has increased some of his pains. Patient does state that he still is not using his boot on a regular basis due to it worsening his low back pain. He states that the pain can interfere with his sleeping. Patient is not interested in any injections at this time. He is currently managed with methocarbamol 750 mg 3 times a day and ibuprofen 800 mg 3 times daily as needed from our office. Patient denies any side effects from this medication. He states he does not need any refills at this time. He is also on lisdexamfetamine 40mg daily from his primary care provider. His Jai has been reviewed and appropriate. Review of Systems: General: No recent weight changes, no fever, no sleep disturbances Respiratory: No cough, no shortness of air, no recurring pulmonary infections Cardiovascular/peripheral vascular: No chest pain, no palpitations, no edema, no shortness of breath Gastrointestinal: No new onset incontinence, normal bowel movements reported Genitourinary: No new onset incontinence Musculoskeletal: Low back pain, bilateral thigh pain, left foot pain Psychiatric: [Normal mood/affect] Neurological: [Denies weakness in extremities], [denies balance issues] Objective:: Physical Exam: General: Alert and oriented x3, no acute distress, pleasant and cooperative Lungs: Respirations even and unlabored, symmetrical chest expansion Eyes: PERRL Musculoskeletal: Flexion and extension of lumbar [spine] somewhat guarded secondary to pain, [antalgic gait noted] Neurological: Speech clear, no gross sensory deficit Assessment:: Degenerative disc disease of lumbar spine with lumbar radiculopathy symptoms, sacroiliitis, lumbar postlaminectomy syndrome, CRPS of the lower limb, left foot pain, status post right SI stabilization procedure Plan:: I have discussed with the patient that I will reach out to [employer] indirect sales representative to get him reprogrammed with his stimulator. I will also order a CT without contrast of his right SI joint to verify fusion. Patient will return to clinic in 1 month for reevaluation of symptoms and plan of care. Patient has been instructed to contact the clinic with any concerns before the next appointment. Dr. Ortiz has reviewed this note and agrees with this plan of care. This note was dictated using voice recognition software and make contain errors or omissions. [facility] Disclaimer: The information contained in this section may have been updated after the patient was seen, as this information can be updated by other users. Medical History (Updated 09/26/22 @ 14:39 by Shannan Vieyra APRN) Abnormal EKG Allergies Chest pain Cholecystectomy planned Facial flushing Gout History of back pain History of COVID-19 History of MRSA infection Hypertension Near syncope Palpitations Tonsillectomy planned Surgical History H/O foot surgery H/O wisdom tooth extraction History of back surgery History of surgery Family History Father Lung cancer Mother Lung cancer Mother A-fib Social History Smoking Status: Never smoker alcohol intake: former substance use type: denies use current occupational status: other Travel in the last 8 weeks: None household members: spouse housing: house current occupational exposures/hazards: Yes caffeine: Yes
[2023-03-12 13:30] VITALS: BP 132/79; PULSE 77; RESP 18; O2SAT 98; BMI 35.6
== END ==
PROVIDERS: PCP Family Medicine; Visit Provider Nurse Practitioner Family
DX: M51.16 Intervertebral disc disorders with radiculopathy, lumbar region (principal); M46.1 Sacroiliitis, not elsewhere classified; M96.1 Postlaminectomy syndrome, not elsewhere classified; G90.529 Complex regional pain syndrome I of unspecified lower limb; M79.672 Pain in left foot; Z96.82 Presence of neurostimulator
CPT/HCPCS: 99212; G0463

== ENCOUNTER 2023-11-01 09:06 | Outpatient (CLI) | payer BC, SELFPAY ==
--- NOTE | 2023-11-01 09:10 | XR_ITS ---
FINAL REPORT CLINICAL HISTORY: Foot Pain COMPARISON: 01/24/2022 FINDINGS: LEFT FOOT: Three views of the left foot were obtained. There is no acute fracture or dislocation. Postoperative changes are present in the first metatarsal, the calcaneus, and the lateral malleolus. The hardware visualized is stable when compared to the prior exam. Mild degenerative changes present. There is no soft tissue abnormality. IMPRESSION: Postoperative changes as described in the left foot, stable since the prior film of 2021. Mild degenerative change. Reviewed, Interpreted and Dictated by Isaac Varner III, MD Transcribed by Ирина Rodriguez Authenticated and [facility]
== END 2023-11-01 23:59 | disposition home or self-care (01) ==
LOC: RAD 09:07
PROVIDERS: PCP Family Medicine; Visit Provider Podiatrist
DX: M79.672 Pain in left foot (principal)
CPT/HCPCS: 73630

== ENCOUNTER 2024-04-01 10:10 | Emergency (ER) | payer BC, SELFPAY ==
--- NOTE | 2024-04-01 10:12 | ECG_ITS ---
APPROVED REPORT Exam: Resting ECG HR:69 bpm ECG Measurements Heart Rate 69 AXES ME 223 P 176 QRSd 114 QRS -21 QT 388 T 14 QTc 406 Conclusion ELECTRONIC ATRIAL PACEMAKER BORDERLINE LEFT AXIS DEVIATION [QRS AXIS < -20] MODERATE INTRAVENTRICULAR CONDUCTION DELAY [110+ ms QRS DURATION] ABNORMAL RHYTHM ECG Electronic interference from TENS unit. Electronically signed by : BAY FUNK, 04/01/2024 16:27:32
[2024-04-01 10:22] VITALS: BP 144/74; PULSE 74; RESP 18; TEMP 36.8; O2SAT 99; BMI 36.9
--- NOTE | 2024-04-01 10:29 | PC.NURSE ---
Dr. Fowler at [facility] for pt eval
[2024-04-01 10:30] VITALS: BP 145/89; PULSE 75; RESP 12; O2SAT 99
--- NOTE | 2024-04-01 10:35 | CT_ITS ---
FINAL REPORT TECHNIQUE: thin section axial CT with and without IV contrast supplemented with multiplanar 3-D reconstruction of the head. This study was performed with techniques to keep radiation doses as low as reasonably achievable, (ALARA)individualized dose reduction techniques using automated exposure control or adjustment of mA and/or kV according to the patient's size were employed. CLINICAL HISTORY: dizzy/b/l tinnitius/vision changes possible stroke FINDINGS: HEAD CT: The ventricles are normal in size. There is no evidence of hemorrhage. No masses are identified. No extra-axial fluid is seen. The sinuses are normal. CTA: The cranial circulation is unremarkable. There is no significant stenosis, aneurysm or occlusion. IMPRESSION: No acute process. Reviewed, Interpreted and Dictated by Guicho Vines MD Transcribed by Megan Alcantar Authenticated and [facility]
--- NOTE | 2024-04-01 10:35 | CT_ITS ---
FINAL REPORT CLINICAL HISTORY: dizzy/b/l tinnitius/vision changes possible stroke FINDINGS: CTA NECK Thin section axial CT with contrast with multiplanar reconstruction NASCET criteria and technique was utilized during interpretation. Aortic arch: Arch shows no significant narrowing. Great vessel origins are widely patent . Right carotid: No significant stenosis is seen of the cervical common or internal carotid artery . Left carotid: No significant stenosis is seen of the cervical common or internal carotid artery . Vertebrals: Left vertebral artery is dominant. No significant stenosis is present . IMPRESSION: No significant stenosis or occlusion. Reviewed, Interpreted and Dictated by Guicho Vines MD Transcribed by Megan Alcantar Authenticated and [facility]
--- NOTE | 2024-04-01 10:35 | CT_ITS ---
FINAL REPORT TECHNIQUE: Axial imaging of the head was obtained after the intravenous administration of contrast. This study was performed with techniques to keep radiation doses as low as reasonably achievable (ALARA). Individualized dose reduction techniques using automated exposure control or adjustment of mA and/or kV according to the patient's size were employed. CLINICAL HISTORY: dizzy/b/l tinnitius/vision changes STROKE PROTOCOL FINDINGS: The ventricles are normal in size. There is no evidence of hemorrhage. No masses are identified. No extra-axial fluid collection is seen. The sinuses are normal. No osseous abnormality is seen on the bone window images. Postcontrast images demonstrate no abnormal enhancement. IMPRESSION: No acute intracranial abnormality. No abnormal contrast-enhancement. Reviewed, Interpreted and Dictated by Guicho Vines MD Transcribed by Megan Alcantar Authenticated and [facility]
--- NOTE | 2024-04-01 10:35 | CT_ITS ---
FINAL REPORT TECHNIQUE: Axial CT images were performed through the head. Coronal reformatted images were submitted. This study was performed with techniques to keep radiation doses as low as reasonably achievable (ALARA). Individualized dose reduction techniques using automated exposure control or adjustment of mA and/or kV according to the patient's size were employed. CLINICAL HISTORY: dizzy/b/l tinnitius/vision changes COMPARISON: 02/06/2020 FINDINGS: The ventricles are normal in size. There is no evidence of hemorrhage. There is no mass or edema identified. There is no abnormal extra-axial fluid seen. The sinuses are well aerated. IMPRESSION: No acute intracranial process. Reviewed, Interpreted and Dictated by Guicho Vines MD Transcribed by Dayana Soler Authenticated and [facility]
--- NOTE | 2024-04-01 10:36 | HMH.EDGENADL ---
Discharge Plan Disposition Patient Disposition: Home, Self-Care Prescriptions Prescriptions: No Action lisinopril 40 mg tablet 40 mg PO DAILY Qty: 90 3RF Rx Instructions: Take 1 tablet by mouth once daily lisdexamfetamine [Vyvanse] 40 mg Capsule 40 mg PO DAILY Referrals Follow up/Referrals: Minh Pop MD [Primary Care Provider] - See instructions Activity Restrictions/Add. Instructions Additional Instructions/Restrictions: At this time it was felt you are safe to be discharged home. If new or worsening symptoms please do not hesitate to return the emergency department. As discussed please follow-up with your family doctor if symptoms are continuing. Clinical Impressions Clinical Impression: Visual changes, Bilateral tinnitus Print Language Print Language: Turkish Discharge ED Provider: Kaleb Fowler General Adult HPI General Chief complaint: Dizziness Stated complaint: AMS Time Seen by Provider: 04/01/24 10:13 Mode of Arrival: Ambulatory Source of Information: Patient Limitations: No Limitations Description of Symptoms (Recalled from ER Triage Doc. by RN): pt states, I woke up yesterday in a daze, dizzy and uncoordinated. pt also c/o numbness/pressure in his face and his ears ringing. pts NIH is 0. GCS 15 and A&O x4. pt denies any pain. denies chest pain or SOA. History of Present Illness HPI narrative: Patient is a 49-year-old male with past medical history of ADHD on Vyvanse, chronic low back pain who presents emergency department for evaluation of multiple complaints. Yesterday he awoke and had intermittent difficulty word finding, blurry vision that corrected with blinking as if he needed to focus, intermittent tingling on his face. Since last night symptoms became more constant accompanied by bilateral tenderness. He feels uncoordinated however he is stable to able to walk. No new medication changes. No chronic alcoholism. No trauma. No infectious symptoms. No other acute complaints at this time. Related Data Home Medications ?Medication ?Instructions ?Recorded ?Confirmed lisdexamfetamine 40 mg capsule 40 mg PO DAILY adhd 05/19/22 04/01/24 (Vyvanse) Previous Rx's ?Medication ?Instructions ?Recorded lisinopril 40 mg tablet 40 mg PO DAILY HTN #90 tabs 09/27/23 Allergies Allergy/AdvReac Type Severity Reaction Status Date / Time sulfamethoxazole (From AdvReac Intermediate Rash Verified 04/01/24 10:29 Bactrim) trimethoprim (From Bactrim) AdvReac Intermediate Rash Verified 04/01/24 10:29 PFSH PFS Disclaimer: The information contained in this section may have been updated after the patient was seen, as this information can be updated by other users. Medical History Facial flushing History of MRSA infection Cholecystectomy planned Tonsillectomy planned History of COVID-19 Gout History of back pain Allergies Hypertension Abnormal EKG Near syncope Palpitations Chest pain Surgical History H/O wisdom tooth extraction H/O foot surgery X2 History of surgery LEFT THUMB SUGERY History of back surgery x3 Family History Father Lung cancer Mother Lung cancer Mother A-fib Social History Smoking Status: Never smoker alcohol intake: former substance use type: denies use current occupational status: other Travel in the last 8 weeks: None household members: spouse housing: house current occupational exposures/hazards: Yes caffeine: Yes Have you lived/traveled outside US in past 30 days?: No Contact w/someone who lives/traveled outside US past 30 days?: No Exposure to someone with infectious disease in past 14 days?: No Do you have a fever (greater than 100.4 F or 38 C)?: No Have you tested positive for COVID-19: No Exposed to someone with COVID-19 in past 14 days?: No Do you have a sore throat?: No Do you have a cough?: No Do you have any weakness?: No Do you have any diarrhea?: No Are you experiencing any unusual bleeding?: No Do you have any muscle aches/pain?: No Do you have any abdominal pain?: No Are you experiencing loss of taste or smell?: No Other Medical History Have you received the Flu Vaccine for this season: No Have you received the Pneumonia Vaccine: No ROS Obtained: Yes Systems reviewed as appropriate & no additional complaints except as documented Physical Exam General General appearance: alert and in no apparent distress Head Head exam: atraumatic and normocephalic Eye Eye exam: Present PERRL and EOMI ENT ENT exam: Present mucous membranes moist and TM's normal bilaterally Neck Neck exam: Present normal inspection; Absent tenderness Chest Chest inspection: Present normal inspection and symmetric chest wall rise Respiratory Respiratory exam: Present normal lung sounds bilaterally; Absent respiratory distress Cardiovascular Cardiovascular exam: Present regular rate and normal rhythm Abdominal Exam Abdominal exam: Present soft; Absent tenderness Extremities Exam Extremities exam: Present normal inspection Neurological Exam Neurological exam: Present alert, oriented X3, CN II-XII intact, normal gait, motor sensory deficit and other (Visual acuity OD 20/15, OS 20/20, OU 20/20) Psychiatric Psychiatric exam: Present normal affect Skin Skin exam: Present warm and dry Medical Decision Making Medical Records Screening: Per USPSTF and CDC recommendations, given the prevalence of disease in our region, it is our hospital?s policy to screen for HIV and viral Hepatitis for all patients aged 18 and over and those with ongoing risk factors. Jai Inquiry Pt receiving controlled substance: No Vital Signs: 04/01/24 10:22 04/01/24 10:30 04/01/24 11:30 Temperature 98.2 F Temperature Source Oral Pulse Rate 75 65 Pulse Rate [Left] 74 Respiratory Rate 18 12 20 Blood Pressure 145/89 H 124/78 Blood Pressure [Right Arm] 144/74 H Blood Pressure Mean [Right Arm] 97 Blood Pressure Source [Right Arm] Automatic Cuff Blood Pressure Position [Right Arm] Sitting 02 Sat by Pulse Oximetry 99 99 97 Oxygen Delivery Method Room Air Room Air Room Air Lab Data Lab Results 04/01/24 10:20: WBC 7.0, RBC 4.79, Hgb 13.7 L, Hct 41.4 L, MCV 86.4, MCH 28.6, MCHC 33.1, RDW 13.5, Plt Count 280, MPV 9.8, Neut % (Auto) 64.3, Lymph % (Auto) 23.3, [place] % (Auto) 8.4, Eos % (Auto) 2.7, Baso % (Auto) 0.9, Neut # (Auto) 4.5, Lymph # (Auto) 1.6, [place] # (Auto) 0.6, Eos # (Auto) 0.2, Baso # (Auto) 0.1, Sodium 139, Potassium 4.3, Chloride 104, Carbon Dioxide 26, Anion Gap 13.3, BUN 16, Creatinine 0.90, Estimated Creat Clear 180, Estimated GFR 90, Est GFR ( Amer) 109, Glucose 101 H, Calcium 9.2, Magnesium 1.9, Total Bilirubin 0.2, AST 34, ALT 39, Alkaline Phosphatase 66, Total Protein 7.2, Albumin 4.5, Globulin 2.7, Albumin/Globulin Ratio 1.7, HCV Ab AMAYA w/Rflx PCR Qn Negative, HIV Ag/Ab Combo Qual Negative 04/01/24 10:45: SARS-CoV-2 (PCR) Not detected, Influenza A Untype (PCR) Not detected, Influenza Type B (PCR) Not detected 04/01/24 10:20 04/01/24 10:20 Orders (Tests/Meds): ED MEDICATIONS Discontinued Medications Generic Name Dose Route Start Last Admin Trade Name Freq PRN Reason Stop Dose Admin Iopamidol 80 ml 04/01/24 10:55 04/01/24 10:56 Iopamidol-370 (76%);100ml Bottle IV 04/01/24 10:56 80 ml ONCE ONE Administration Sodium Chloride 10 ml 04/01/24 10:55 04/01/24 10:56 Sodium Chloride 0.9% 10ml Syr (Rad Only) IV 04/01/24 10:56 10 ml ONCE ONE Administration Sodium Chloride 50 ml 04/01/24 10:55 04/01/24 10:56 0.9 % Sodium Chloride 50 Ml Vial IV 04/01/24 10:56 50 ml ONCE ONE Administration ORDERS Category Date Time Status CT Venogram head Stat Cat Scan 04/01/24 10:[address] angio head Stat Cat Scan 04/01/24 10:[address] angio neck Stat Cat Scan 04/01/24 10:[address] head/brain wo con Stat Cat Scan 04/01/24 10:35 Completed CBC w/Auto Diff [Complete Blood Count Auto Diff] Stat Lab 04/01/24 10:20 Completed CMP [Comprehensive Metabolic Panel] Stat Lab 04/01/24 10:20 Completed HIV Combo Stat Lab 04/01/24 10:20 Completed Hepatitis C Ab Qual. W/ RFX Stat Lab 04/01/24 10:20 Completed MG [Magnesium] Stat Lab 04/01/24 10:20 Completed Rapid PCR Covid and Flu A/B Stat Lab 04/01/24 10:45 Completed ECG Data Tracing #1: Independently interpreted by me rate is 69, rhythm is regular, axis is borderline leftward deviated, no ST elevation in anatomical contiguous leads, interference from TENS unit, QTc 406. Medical Decision Narrative: In summary patient is a 49-year-old male past medical history described above presents emergency department for evaluation of multiple symptoms including tenderness, facial tingling, subjective uncoordination and difficulty word finding. Patient is hemodynamically stable nontoxic-appearing upon arrival, afebrile with a nonfocal neurologic exam, no facial droop, strength intact all extremities, no cerebellar signs on physical exam. Differential includes CVA, venous sinus thrombosis, metabolic abnormality, among others. Workup will be conducted with hematologic labs, noncontrasted CT scan of the head, CTA head and neck, CT venogram. Workup reviewed by me, hematologic labs are nonactionable, no significant leukocytosis, no SUSAN or critical electrolyte abnormality. Viral swab negative. Noncontrasted CT scan informally visualized by me no large acute intracranial hemorrhage. Formal read for diagnostic imaging of the head shows no acute pathology. Upon repeat evaluation patient continued to have nonfocal neurologic status, was ambulatory bedside. Given that he does not have unilateral symptoms and is able to ambulate I do not think that he has any emergent cause of his symptoms at this time and is appropriate for outpatient management. Patient will follow-up with PCP in a few days if symptoms do not resolve for possible MRI or further referral. He was given multiple return precautions verbalized understanding. Critical Care Critical Care Time Critical Care Time: No
[2024-04-01 10:41] LABS: Basophils # 0.1 K/mm3 (0-0.2); Basophils % 0.9 % (0.1-2.0); Eosinophils # 0.2 K/mm3 (0.0-0.4); Eosinophils % 2.7 % (0.1-12.0); Hematocrit 41.4 % (42.0-52.0); Hemoglobin 13.7 g/dL (14.1-18.0); Lymphocytes # 1.6 K/mm3 (0.7-4.5); Lymphocytes % 23.3 % (10-50); Mean Corpuscular HGB Conc 33.1 g/dL (31.8-35.4); Mean Corpuscular Hemoglobin 28.6 pg (27.0-31.2); Mean Corpuscular Volume 86.4 fl (80-94); Mean Platelet Volume 9.8 fl (7.4-10.4); Monocytes # 0.6 K/mm3 (0.1-1.0); Monocytes % 8.4 % (1.7-9.3); Neutrophils # 4.5 K/mm3 (1.8-7.8); Neutrophils % 64.3 % (37.0-80.0); Platelet Count 280 K/mm3 (142-424); Red Blood Count 4.79 M/mm3 (4.60-6.20); Red Cell Distribution Width 13.5 % (11.5-17.5)
[2024-04-01 10:42] LABS: Albumin Level 4.5 g/dl (3.5-5.0); Chloride 104 mmol/L (98-107)
[2024-04-01 10:43] LABS: Potassium 4.3 mmoL/L (3.5-5.1); Sodium 139 mmol/L (136-145)
[2024-04-01 10:45] LABS: Alanine Aminotransferase 39 U/L (12-78); Albumin/Globulin Ratio 1.7 (1.1-1.8); Anion Gap 13.3 mEq/L (5-15); Aspartate Amino Transferase 34 U/L (17-59); Blood Urea Nitrogen 16 mg/dl (9-20); Carbon Dioxide 26 mmol/L (22.0-30.0); Creatinine Clearance Estimated 180 mL/min (50-200); Estimated Glomerular Filt Rate 90 ml/min (>60); GFR (African American) 109 ML/MIN (>60); Globulin 2.7 g/dL (1.3-3.2); Total Protein,Serum 7.2 g/dl (6.3-8.2)
[2024-04-01 10:46] LABS: Alkaline Phosphatase 66 U/L (38-126); Bilirubin,Total 0.2 mg/dl (0.2-1.3); Calcium 9.2 mg/dl (8.4-10.2); Glucose 101 mg/dl (74-100); Magnesium 1.9 mg/dl (1.6-2.3)
--- NOTE | 2024-04-01 10:46 | PC.NURSE ---
Rapid covid/flu sent to lab
--- NOTE | 2024-04-01 10:52 | PC.NURSE ---
pt to CT via wheelchair with Rad techs x 2
[2024-04-01 10:53] LABS: Coronavirus 19, PCR Not Detected (NotDetected); Influenza A, PCR Not Detected (NotDetected); Influenza B, PCR Not Detected (NotDetected)
[2024-04-01] MEDS: SODIUM CHLORIDE 0.9% 10ML SYR (RAD ONLY) 10 ML IV (10:56)
[2024-04-01] MEDS: IOPAMIDOL-370 (76%);100ML BOTTLE 80 ML IV (10:56)
[2024-04-01] MEDS: 0.9 % SODIUM CHLORIDE 50 ML VIAL IV (10:56)
[2024-04-01 11:27] LABS: HIV Combo NEGATIVE (Negative)
[2024-04-01 11:30] VITALS: BP 124/78; PULSE 65; RESP 20; O2SAT 97
--- NOTE | 2024-04-01 11:45 | PC.NURSE ---
Visual Acuity Uncorrected (baseline) Both 20/20 R 20/15 L 20/20
[2024-04-01 13:00] LABS: Hepatitis C Ab Qual. W/ RFX NEGATIVE (Negative)
--- NOTE | 2024-04-01 13:09 | PC.NURSE ---
Dr. Fowler at bedside
[2024-04-01 13:32] VITALS: BP 136/82; PULSE 65; RESP 18; TEMP 37.1; O2SAT 97
== END 2024-04-01 13:35 | disposition home or self-care (01) ==
PROVIDERS: Emergency Provider Emergency Medicine; PCP Family Medicine
DX: H93.13 Tinnitus, bilateral (principal); H53.8 Other visual disturbances; R41.82 Altered mental status, unspecified; R20.2 Paresthesia of skin; R42 Dizziness and giddiness
CPT/HCPCS: 70450; 70496; 70498; 80053; 83735; 85025; 86803; 87389; 87636; 93005; 99285; Q9967

== ENCOUNTER 2024-04-30 12:46 | Day surgery (SDC) | payer BC, SELFPAY ==
[2024-04-29 10:16] VITALS: BMI 36.9
[2024-04-30 13:18] VITALS: BP 115/78; PULSE 67; RESP 18; TEMP 36.1; O2SAT 97
--- NOTE | 2024-04-30 14:14 | EXP.HP ---
History of Present Illness *Admission Date: 04/30/24 *Reason for visit:: Screening for colon cancer *History of present illness: Mr. Victor is a 49-year-old gentleman who is here for screening colonoscopy. The examination is deemed medically necessary for screening colonoscopy. The patient has been seen, interviewed and examined prior to the procedure by both myself and the anesthesia provider. [facility] Disclaimer: The information contained in this section may have been updated after the patient was seen, as this information can be updated by other users. Medical History Facial flushing History of MRSA infection Cholecystectomy planned Tonsillectomy planned History of COVID-19 Gout History of back pain Allergies Hypertension Abnormal EKG Near syncope Palpitations Chest pain Surgical History H/O wisdom tooth extraction H/O foot surgery X2 History of surgery LEFT THUMB SUGERY History of back surgery x3 Family History Father Lung cancer Mother Lung cancer Mother A-fib Social History Smoking Status: Never smoker alcohol intake: never substance use type: denies use current occupational status: other Travel in the last 8 weeks: None household members: spouse housing: house current occupational exposures/hazards: Yes caffeine: Yes Have you lived/traveled outside US in past 30 days?: No Contact w/someone who lives/traveled outside US past 30 days?: No Exposure to someone with infectious disease in past 14 days?: No Do you have a fever (greater than 100.4 F or 38 C)?: No Have you tested positive for COVID-19: No Exposed to someone with COVID-19 in past 14 days?: No Do you have a sore throat?: No Do you have a cough?: No Do you have any weakness?: No Do you have any diarrhea?: No Are you experiencing any unusual bleeding?: No Do you have any muscle aches/pain?: No Do you have any abdominal pain?: No Are you experiencing loss of taste or smell?: No Other Medical History Have you received the Flu Vaccine for this season: No Have you received the Pneumonia Vaccine: No Review of Systems Review of Systems Review of systems (narrative): Negative *Cardiovascular Comments: Negative *Gastrointestinal Comments: Negative *Genitourinary Comments: Negative *Musculoskeletal Comments: Negative *Neurologic Comments: Negative Meds Home Medications and Allergies Home Medications ?Medication ?Instructions ?Recorded ?Confirmed ?Type lisdexamfetamine 40 mg capsule 40 mg PO DAILY adhd 05/19/22 04/29/24 History (Vyvanse) lisinopril 40 mg tablet 40 mg PO DAILY HTN #90 tabs 09/27/23 04/29/24 Rx sodium,potassium,mag sulfates 17.5 See Rx Instructions PO .COMPLEX 04/15/24 Rx gram-3.13 gram-1.6 gram oral soln #354 mL (Suprep Bowel Prep Kit) New Prescriptions to Start Prescriptions: Allergies Allergy/AdvReac Type Severity Reaction Status Date / Time sulfamethoxazole (From AdvReac Intermediate Rash Verified 04/29/24 10:14 Bactrim) trimethoprim (From Bactrim) AdvReac Intermediate Rash Verified 04/29/24 10:14 Exam Data for Last 24 hours I & O for Last 24 hours: Intake & Output 04/27/24 04/28/24 04/29/24 04/30/24 23:59 23:59 23:59 23:59 Weight 280 lb *Routine HEENT Exam Head: Present normocephalic Eye: Present EOMI and PERRL ENT: Present mucous membranes moist *Routine Neck Exam Neck: Present supple *Routine Respiratory Exam Respiratory: Present CTA bilaterally *Routine Cardiovascular Exam Cardiovascular: Present RRR *Routine Abdominal Exam Abdominal: Present soft and normoactive bowel sounds; Absent tenderness *Routine Rectal Exam Rectal:: deferred *Routine Genitalia Exam Genitalia:: deferred *Routine Extremities Exam Extremities: Absent cyanosis, clubbing or edema *Routine Skin Exam Skin: Present warm; Absent rash *Routine Neurological Exam Neurological: Present alert and oriented X3 Assessment and Plan *Assessment and plan (1) Screening for colon cancer: Status: Acute Category: Medical Code(s): Z12.11 - Encounter for screening for malignant neoplasm of colon Plan A/P: 1. Screening for colon cancer is the preprocedural diagnosis. The patient will be anesthetized/sedated using MAC sedation. The patient has been seen and examined. Cardiac and lung assessment prior to the examination is stable. Proceed with planned screening colonoscopy
--- NOTE | 2024-04-30 14:25 | HMH.PROCNOTE ---
[facility] Procedure Note Date: 04/30/24 Time: 14:45 Procedure Note:: Colonoscopy Procedure Report: Colonoscopy with cold snare polypectomy and Endo Clip placement Endoscopist: Beny Link II, MD Referring physician: Minh Pop MD Date of Procedure: April 30, 2024 Equipment: Olympus 190 variable stiffness pediatric colonoscope Sedation: MAC sedation Indication: Mr. Victor is a 49-year-old gentleman who is here for initial screening colonoscopy. He reports no abdominal pain, weight loss, change in his bowel habits or rectal bleeding. He does have 2 cousins that had colon cancer. He has had prior cholecystectomy and does get intermittent bile acid diarrhea once weekly. He also has had some intermittent prostatitis. Procedure: Prior to the procedure, a history and physical exam was performed, and patient's medications and allergies were reviewed. The risks, benefits and alternatives of the sedation and procedure were discussed with the patient. All questions were answered and informed consent was obtained. The patient was brought to the procedure room. Patient identification and proposed procedure were verified by the physician and the nurse. The patient was placed in a left lateral decubitus position and the scope was passed under direct vision. Throughout the procedure, the patient's blood pressure, pulse, and oxygen saturations were monitored continuously. The colonoscopy was accomplished without difficulty. The patient tolerated the procedure well. Findings: On digital rectal examination there was normal rectal tone. There were no external hemorrhoids. The colonoscope was introduced through the anal canal to the rectum and advanced to the cecum. The ileocecal valve and appendiceal orifice were identified. The scope was advanced a short distance into the ileum which appeared grossly normal. The scope was then withdrawn into the colon. There were 4 colon polyps (cecum x 1 (3 mm), transverse x 2 (5 and 14 mm) and rectum x 1 (4 mm)). These were all removed via cold snare polypectomy. The largest polyp in the transverse colon had minor heme at the polypectomy site and a single Endo Clip was placed over the polypectomy site. The remaining cecum, ascending, transverse, descending, sigmoid and rectum were grossly normal. There were no other mucosal abnormalities identified. Upon retroflexion within the rectum there were grade 2 internal hemorrhoids. The preparation was excellent throughout with Mobile Preparation Score of 9. The cecal time was 15 minutes. Impression: 1. Colonic polyps x 4 (ranging in size from 3 to 14 mm) 2. Grade 2 internal hemorrhoids Plan: I will follow-up the polyp histology and recommend repeat surveillance colonoscopy again in 3 to 5 years based upon the pathology. I would encourage bulking psyllium fiber supplementation on a long-term daily maintenance basis.
[2024-04-30 14:26] VITALS: O2SAT 100
[2024-04-30 14:48] VITALS: BP 108/71; PULSE 69; RESP 16; TEMP 36.1; O2SAT 97
[2024-04-30 14:58] VITALS: BP 110/70; PULSE 70; RESP 18; O2SAT 99
[2024-04-30 15:02] VITALS: BP 122/54; PULSE 57; RESP 18; O2SAT 99
[2024-04-30 15:17] VITALS: BP 114/71; PULSE 58; RESP 18; O2SAT 100
--- NOTE | 2024-04-30 16:07 | EXP.ANES.CKL ---
[facility] Disclaimer: The information contained in this section may have been updated after the patient was seen, as this information can be updated by other users. Medical History Facial flushing History of MRSA infection Cholecystectomy planned Tonsillectomy planned History of COVID-19 Gout History of back pain Allergies Hypertension Abnormal EKG Near syncope Palpitations Chest pain Surgical History H/O wisdom tooth extraction H/O foot surgery X2 History of surgery LEFT THUMB SUGERY History of back surgery x3 Family History Father Lung cancer Mother Lung cancer Mother A-fib Social History Smoking Status: Never smoker alcohol intake: never substance use type: denies use current occupational status: other Travel in the last 8 weeks: None household members: spouse housing: house current occupational exposures/hazards: Yes caffeine: Yes Have you lived/traveled outside US in past 30 days?: No Contact w/someone who lives/traveled outside US past 30 days?: No Exposure to someone with infectious disease in past 14 days?: No Do you have a fever (greater than 100.4 F or 38 C)?: No Have you tested positive for COVID-19: No Exposed to someone with COVID-19 in past 14 days?: No Do you have a sore throat?: No Do you have a cough?: No Do you have any weakness?: No Do you have any diarrhea?: No Are you experiencing any unusual bleeding?: No Do you have any muscle aches/pain?: No Do you have any abdominal pain?: No Are you experiencing loss of taste or smell?: No [facility] Anesthesia Checklist Patient Identification Patient Identification: Arm Band Structural Data Admitted From: Home Planned Operative Procedure/s: Colonoscopy Consent for Planned Operative Procedure(s) Verified: Yes Verified Documents: Surgical Consent NPO Status Verified Time NPO: 00:00 Additional verifications Anesthesia Reactions: No Hx Blood Transfusions: No Blood Transfusion Reaction: No Airway Assessment Mallampati Score:: Class II C-Spine Mobility Assessed: Yes TMJ Mobility Assessed: Yes Dentition: Good Dentition Neurological Assessment Level of Consciousness: Awake, Alert and Appropriate Anesthesia Plan Anesthesia Risk discussed: Yes Anesthesia Plan: Verified ASA Class: III Anesthesia Type: MAC
== END 2024-04-30 15:17 | disposition home or self-care (01) ==
PROVIDERS: PCP Family Medicine; Visit Provider Internal Medicine Gastroenterology
PROC: 0DJD8ZZ Inspection of Lower Intestinal Tract, Via Natural or Artificial Opening Endoscopic (ICD-10-PCS; CPT 45378; principal; 2024-04-30 14:30)
DX: K63.5 Polyp of colon (principal); K64.1 Second degree hemorrhoids; Z12.11 Encounter for screening for malignant neoplasm of colon; Z80.0 Family history of malignant neoplasm of digestive organs
CPT/HCPCS: 45385

== ENCOUNTER 2024-10-13 09:53 | Outpatient (CLI) | payer BC, SELFPAY ==
--- OUTSIDE RECORDS SUMMARY | 2024-04-14 07:30 | XMS_ITS ---
Author [facility] Address 1210 [facility] 36 [facility] [address] [place] [id number] Care Team Providers Care Vibrating Screed Operator Name Role Phone Minh Pop Primary Care Provider Yuko Callahan [phone] Allergies Allergen (clinical drug ingredient) Drug/Non Drug Allergy documented on EMR Reaction Allergy Type Onset Date Status sulfamethoxazole / trimethoprim Bactrim DS rash Drug Allergy Active Reason For Referral Reason [facility] Diagnosis 1 Tinnitus of both ear s (H93.13) [facility] Referring Provider First Name Minh Referring Provider Last Name Kiesha Referring Provider Speciality Family Pra ctice Referred Provider ENT, . Referred Provider Specialty ENT General Notes Liberty Burgess 04/14/19 12:58:50 PM > faxed to [facility] Jenifer BURLESON Brynn 04/15/2024 9:34:59 AM [...] Problem Status W/U Status Risk Notes Problem Tinnitus of both ears (H93.13) Active confirmed Vital Signs Blood pressure systolic 120 mm Hg 04/14/19 25 Blood pressure diastolic 74 mm Hg 025 Heart Rate 70 /min 04/14/2024 Height 73 in 04/14/2024 Weight 293.4 lbs 04/14/2024 BMI 38.71 kg/m2 04/14/2024 Encounters Encounter Location Date Provider Diagnosis [facility] 12[address] [facility] 36 [facility] [address] [place], [place] [phone] 04/14/2024 Minh Pop Tinnitus of both ear [...] 04/14/2024 Referrals Referral Date Details 04/14/2024 04/14/2024, [facility], . E NT Next Appt Details Follow Up: via phone to repo rt progress, Reason: Provider Name:Yuko Toy Carter eric, 12/09/2024 10:00:00 AM, 12[address] [facility] 36 [facility], [address], [place], [place], [phone], Progress Notes * ARLET VICTORDOB: 7 (49 yo M)Acc No.[id number]:04/14/2024 Progress Notes Patient: ARLET CARO Provider: Yi Pop M.D. :1975 A ge:49 Y S ex:Male Date:04/14/2024 Address:[address] [place], [place] [phone] Subjective: * Chief Complaints: * 1 . [...] URRENT TOBACCO USE: No . 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 Past smoking status: never smoked. * [...] * Images: Billing Information: * Visit Code: 34207 Office Visit, Est Pt., Level 3. * Procedure Codes: 3074F SYST BP LT 130 MM HG. 3078F DIAST BP < 80 MM HG. * Electronic signature of Rhonda Pop MD on 10/13/2024 at 09:55 AM EDT Sign off status: Pending * Provider: Yi oPp M.D. Date: 0 04/14/2024 Generated for Martin deutsch/Jose Manuel/eTransmitting on: 0 10/13/2024 09:55 AM EDT History and Physical Notes * [...] Not es 04/14/2024 Minh Pop ENT, . [facility]
--- OUTSIDE RECORDS SUMMARY | 2024-05-29 06:00 | XMS_ITS ---
Author Organization [facility] Address [address] [facility] [address] [place] [id number] Care Team Providers Care Lockstitch Collar Setter Name Role Phone Pretty Popian Primary Care Provider Yuko Callahan Unavailable [phone] Allergies Allergen (clinical drug ingredient) Drug/Non Drug [...] Provider Diagnosis [facility] [address] [facility] [address] [place] [phone] 05/29/2024 Yuko Callahan Attention deficit hyperactivity disorder [...] Name:Yuko Alexander, 12/09/2024 10:00:00 AM, [address] [facility] 36 [facility], [address] [place] [address], [phone], Progress Notes * ARLET VICTORDOB: 7 (49 yo M)Acc No.[id number]:05/29/2024 Progress Notes Patient: ARLET CARO Provider: Yuko Callahan M.D. :1975 A ge:49 Y S ex:Male Date:05/29/2024 Address:[address] [place] [address] Pcp:Minh Pop Subjective: * Chief Complaints: * [...] URRENT TOBACCO USE: No . 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 Past smoking status: never smoked. [...] * Images: Billing Information: * Visit Code: 77279 Office Visit, Est Pt., Level 3. * Procedure Codes: 3074F SYST BP LT 130 MM HG. 3078F DIAST BP < 80 MM HG. * Electronic signature of Yuko Callahan MD on 10/13/2024 at 09:55 AM EDT Sign off status: Pending * Provider: Yuko Callahan M.D. Date: 0 05/29/2024 Generated for Martin deutsch/Jose Manuel/Jimmy on: 0 10/13/2024 09:55 AM EDT History [...]
--- OUTSIDE RECORDS SUMMARY | 2024-09-04 05:15 | XMS_ITS ---
[facility] Address [address] [facility] [address] [phone] Care Team Providers Care Instrument Inspector Name Role Phone Pretty Popian Primary Care Provider Yuko Callahan [phone] Allergies Allergen (clinical drug ingredient) Drug/Non Drug Allergy documented on EMR Reaction Allergy Type Onset Date Status sulfamethoxazole / trimethoprim Bactrim DS rash Drug Allergy Active REASON FOR VISIT 3 month f/u Medications Medication SIG (Take, Route, Frequency, Duration) Notes Start Date End Date Status Amitriptyline HCl 25 MG 1 or 2 tablet at bedtime Orally Once a day 04/14/2024 Not-Taking Flonase Allergy Relief 50 MCG/ACT 1 spray in each nostril Nasally Once a day Active Vyvanse 40 MG 1 capsule in the morning orally Once a day; Duration: 30 days Active Meclizine HCl 25 MG 1 tablet as needed Orally Three times a day Active Methocarbamol 750 MG 1 cap(s) orally at bedtime as needed Active Ofloxacin 0.3 % 10 drops into affect ed ear Otic Once a day 09/04/2024 Active Lisinopril 20 MG 1 tab(s) orally once a day Active Problems Problem Type SNOMED Code ICD Code Onset Dates Problem Status W/U Status Risk Notes Problem Otitis externa (H60.90) Active confirmed Vital Signs Blood pressure systolic 120 mm Hg 09/05/19 25 Blood pressure diastolic 72 mm Hg 025 Heart Rate 84 /min 09/04/2024 Height 73 in 09/04/2024 Weight 296.6 lbs 09/04/2024 BMI 39.13 kg/m2 09/04/2024 Encounters Encounter Location Date Provider Diagnosis [facility] [address] [facility] 36 [facility] [address] [place] [phone] 09/04/2024 Yuko Callahan Otitis externa H60.9 0 and Attention deficit hyperactivity disorder (ADHD), unspecified ADHD type F90.9 Assessments Encounter Date Diagnosis (ICD Code) Assessment Notes Treatment Notes Treatment Clinical Notes Section Notes 09/04/2024 Otitis externa (ICD-10 - H60.90) He is provided a standby prescription for ofloxacin drops if his symptoms worsen 09/04/2024 Attention deficit hyperactivity disorder (ADHD), unspecified ADHD type (ICD-10 - F90.9) Plan Of Treatment Medication Medication Name Sig Start Date Stop Date Notes Vyvanse 40 MG 1 capsule in the mor david orally Once a day; Duration: 30 days Ofloxacin 0.3 % 10 drops into affected ear Otic Once a day 09/04/2024 Treatment Notes Assessment Notes Otitis externa He is provided a sta ndby prescription for ofloxacin drops if his symptoms worsen Next Appt Details Follow Up: 3 Months, Reason: Provider Name:Yuko Alexander, 12/09/2024 10:00:00 AM, [address] [facility] 36 [facility], [address], [place], [phone], Progress Notes * ARLET VICTORDOB: 7 (49 yo M)Acc No.[id number]:09/04/2024 Progress Notes Patient: ARLET CARO Provider: Yuko Callahan M.D. :1975 A ge:49 Y S ex:Male Date:09/04/2024 Address:[address] [place] [address] Pcp:Minh Pop Subjective: * Chief Complaints: * 1 . 3 month f/u. * HPI: H PI: 49 year old male presents with c/o Patient is here today for?Pt is here today for a 3 month check up. E NT/respiratory: Kent[place] he has been following with ENT for symptoms of vertigo and tinnitus which seem to be related to allergies. He has been referred for allergy testing and is awaiting an appointment. If he takes Zyrtec and Flonase regularly, this seems to control his symptoms. He is having a separate issue today with complaints of pain just inside of his ear. He was on vacation last week and was in a swimming pool and he does wear ear buds regularly. He has been using alcohol drops and the ear actually feels better today. * ROS: D ERMATOLOGY: no R anna. [...] S iblings: alive, diagnosed with Hypertension. C cornelius: alive, diagnosed with Mental Illness. 1 brother(s) . 1 son(s) . . Lung Cancer, ADHD. * Social History: C URRENT TOBACCO USE: No . 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 Past smoking status: never smoked. * [...] - Allergy. Objective: * Vitals: W t: 296.6, Temp: 98.6, BP: 120/72, HR: 84, Nurse: mm, Ht: 73, BMI:39.13. * Examination: G eneral Examination: General Appearance: N AD. H EENT: L eft external canal is mildly swollen. There is tenderness with palpation of the tragus. H eart: R SR.?Lungs: c lear to auscultation. Assessment: * Assessment: 1. A ttention deficit hyperactivity disorder (ADHD), unspecified ADHD type - F90.9 (Primary)? 2. O titis externa - H60.90 Plan: * Treatment: 2. O titis externa Start Ofloxacin Solution, 0.3 %, 10 drops into affected ear, Otic, Once a day. Notes: He is provided a standby prescription for ofloxacin drops if his symptoms worsen * Procedure Codes: 1 036F TOBACCO NON-USER, G8783 BP SCR PRFRM RCMDD DEFIND SCR INTVL, G8752 MOST RECENT SYSTOLIC BP < 140MM HG, G8754 MOST RECENT DIASTOLIC BP < 90MM HG * Follow Up: 3 Months * Images: Billing Information: * Visit Code: 14157 Office Visit, Est Pt., Level 3. * Procedure Codes: 1036F TOBACCO NON-USER. G8783 BP SCR PRFRM RCMDD DEFIND SCR INTVL. G8752 MOST RECENT SYSTOLIC BP < 140MM HG. G8754 MOST RECENT DIASTOLIC BP < 90MM HG. * Electronic signature of Yuko Callahan MD on 10/13/2024 at 09:56 AM EDT Sign off status: Pending * Provider: Yuko Callahan M.D. Date: 0 09/04/2024 Generated for Martin deutsch/Jose Manuel/Kenanitting on: 0 10/13/2024 09:56 AM EDT History and Physical Notes * HPI (History of Present Illness) Category Sub-Category Detail Notes Category Not es ENT/respiratory He is having a separate issue today with complaints of pain just inside of his ear. He was on vacation last week and was in a swimming pool and he does wear ear buds regularly. He has been using alcohol drops and the ear actually feels better today HPI Patient is here toda y for Pt is here today for a 3 month check up Examination Category Sub-Category Detail Notes Category Not es General Examination HEENT: Left externa l canal is mildly swollen. There is tenderness with palpation of the tragus Heart: RSR Lungs: clear to auscultatio n General Appearance: NAD
--- OUTSIDE RECORDS SUMMARY | 2024-10-13 09:55 | XMS_ITS | Clinical Summary ---
Author Organization [facility] ystem Address [address] [place] [address] Care Team Providers Care Shrinking Machine Operator Name Role Phone Minh Pop MD Primary Care Provider [phone] Social History Tobacco Use Types Packs/Day Years Used Date Smoking Tobacco: Never Assessed Sex and Gender Information Value Date Recorded Sex Assigned at Not on file Legal Sex Male 2:54 PM EDT Gender Identity Not on file Sexual Orientation Not on file Plan of Treatment Upcoming Encounters Date Type Department Care Team (Late st Contact Info) Description 11/03/2024 9:10 AM EDT Office Visit [facility] UROLOGY [address] [facility] [address] [place] [address] Emeka Varela MD [address] [facility] [address] [place], [place] [id number] Health Maintenance Due Date Last Done Comments TDAP/TD VACCINES (1 - Tdap) 1995 COLOGUARD 2021 COLON CANCER SCREENING 5 YEA R SIGMOIDOSCOPY 2021 COLONOSCOPY 2021 COLORECTAL CANCER SCREENING 2021 CT COLONOGRAPHY 2021 FECAL OCCULT BLOOD TEST 2021 FIT Testing (1 year) 2021 COVID-19 Vaccine (2023-2 5 season) 2023 ANNUAL PHYSICAL 10/03/2024 HEPATITIS C SCREENING 10/03/2024 INFLUENZA VACCINE 11/26/2024 Pneumococcal Vaccine 0-49 Aged Out No longer eligible based on patient's age to complete this topic Insurance [facility] PPO Care Teams Shrinking Machine Operator Relationship Specialty Start Date End Date Minh Pop MD [address] [facility] [address] [facility] [address] [place] [address] PCP - General Family Medicine 09/24/24
--- OUTSIDE RECORDS SUMMARY | 2024-10-13 09:56 | XMS_ITS | Patient Health Record ---
Author Organization [facility] Address [address] [facility] [address] [place] [id number] Care Team Providers Care Black Off Worker Name Role Phone Minh Pop Primary Care Provider Yuko Callahan Unavailable [phone] Alfreda Anglin Unavailable [phone] Allergies Allergen (clinical drug ingredient) Drug/Non Drug Allergy documented on EMR Reaction Allergy Type Onset Date Status sulfamethoxazole / trimethoprim Bactrim DS rash Drug Allergy Active Results Component Value Reference Range Notes colonoscopy Reviewed date:07/25/2024 09:53:49 AM Interpretation:polyps, hemorrhoids, repeat 3-5 yrs Performing Lab: Notes/Report: polyps, hemorrhoids, repeat 3-5 yrs result: polyps, hemorrhoids repeat study: 3-5 yrs Pathology evaluation Reviewed date:05/02/2024 11:36:46 AM Interpretation:Negative Performing Lab: Notes/Report: Negative Reason For Referral Reason [facility] Diagnosis 1 Tinnitus of both ear s (H93.13) Referral Organization [facility] Referring Provider First Name Minh Referring Provider Last Name Kiesha Referring Provider Speciality Family Pra ctice Referred Provider ENT, . Referred Provider Specialty ENT General Notes Liberty Burgess 04/14/19 25 12:58:50 PM > faxed to [facility] Jenifer BURLESON Brynn 04/15/2024 9:34:59 AM > 05/01/2024 at 11:00am Referral Priority Routine Medications Medication SIG (Take, Route, Frequency, Duration) Notes Start Date End Date Status Ofloxacin 0.3 % 10 drops into affect ed ear Otic Once a day 09/04/2024 Active Lisinopril 20 MG 1 tab(s) orally once a day; Duration: 90 days Active Vyvanse 40 MG 1 capsule in the morning orally Once a day; Duration: 30 days 10/02/2024 Active Amitriptyline HCl 25 MG 1 or 2 tablet at bedtime Orally Once a day 04/14/2024 Not-Taking Flonase Allergy Relief 50 MCG/ACT 1 spray in each nostril Nasally Once a day Active Meclizine HCl 25 MG 1 tablet as needed Orally Three times a day Active Methocarbamol 750 MG 1 cap(s) orally at bedtime as needed Active Immunizations Vaccine Route Administration Date Status Comme nts Tetanus Tdap-Adacel (over 7yrs) Unknown 08/29/2020 Admi nistered Problems Problem Type SNOMED Code ICD Code Onset Dates Problem Status W/U Status Risk Notes Problem Vitamin D deficiency (88178243) Vitamin D deficiency (E55.9) Active confirmed Problem Gout (22545590) Gout (M10.9) Active confirmed Problem Essential hypertension (42427500) Essential hypertension (I10) Active confirmed Problem Otitis externa (2959574) Otitis externa (H60.90) Active confirmed Problem Obstructive sleep apnea (10759937) Obstructive sleep apnea (G47.33) Active confirmed Problem Bilateral tinnitus (8296890678278) Tinnitus of both ears (H93.13) Active confirmed Problem Attention deficit hyperactivity disorder (539641515) Attention deficit hyperactivity disorder (ADHD), unspecified ADHD type (F90.9) Active confirmed Problem Obese class II (247630664197864) BMI 37.0-37.9, adult (Z68.37) Active confirmed Problem Gout (20254519) Acute gout of right foot, unspecified cause (M10.9) Active confirmed Problem Gout (32272638) Acute gout involving toe of right foot, unspecified cause (M10.9) Active confirmed Problem Obesity (194902658) Non morbid obesity (E66.9) Active confirmed Vital Signs Heart Rate 84 /min 09/04/2024 Blood pressure diastolic 72 mm Hg 09/04/2024 Height 73 in 09/04/2024 Blood pressure systolic 120 mm Hg 09/04/2024 Weight 296.6 lbs 09/04/2024 BMI 39.13 kg/m2 09/04/2024 Encounters Encounter Location Date Provider Diagnosis [facility] [address] [place] [address], [place] [id number] 01/01/2024 R Toy Sindy Attention deficit hyperactivity disorder (ADHD), unspecified ADHD type F90.9 and Seborrhea capitis L21.0 [facility] [address] [facility] [address] [place], [place] [id number] 04/02/2024 Alfreda Crowdy Non-recurrent acute serous otitis media of left ear H65.02 and Vertigo R42 [facility] [address] [place], [place] [id number] 04/04/2024 Alfreda Crowdy Non-recurrent acute serous otitis media of left ear H65.02 and Vertigo R42 [facility] [address] [place], [place] [id number] 04/14/2024 Minh [place] Tinnitus of both ear s H93.13 and Dizziness R42 Rachael [address] [place], [place] [id number] 05/29/2024 R Toy Sindy Attention deficit hyperactivity disorder (ADHD), unspecified ADHD type F90.9 and Tick bite W57.XXXA [facility] [address] [place], [place] [id number] 09/04/2024 R Toy Sindy Otitis externa H60.9 0 and Attention deficit hyperactivity disorder (ADHD), unspecified ADHD type F90.9 [facility] [address] [place], [place] [id number] 10/19/2023 R Toy Sindy Attention deficit hyperactivity disorder (ADHD), unspecified ADHD type F90.9 [facility] [address] [facility] [address] [place], [place] [id number] 11/19/2023 R Toy Sindy Attention deficit hyperactivity disorder (ADHD), unspecified ADHD type F90.9 [facility] [address] [place], [place] [id number] 12/20/2023 R Toy Sindy Attention deficit hyperactivity disorder (ADHD), unspecified ADHD type F90.9 [facility] [address] [place], [place] [id number] 01/21/2024 R Toy Sindy Attention deficit hyperactivity disorder (ADHD), unspecified ADHD type F90.9 [facility] [address] [place], [place] [id number] 02/21/2024 R Toy Sindy Attention deficit hyperactivity disorder (ADHD), unspecified ADHD type F90.9 [facility] [address] [place], [place] [id number] 03/04/2024 Minh [place] [facility] [address] [place], [place] [id number] 03/25/2024 R Toy Sindy Attention deficit hyperactivity disorder (ADHD), unspecified ADHD type F90.9 [facility] [address] [place], [place] [id number] 04/28/2024 R Toy Sindy Attention deficit hyperactivity disorder (ADHD), unspecified ADHD type F90.9 [facility] [address] [place], [place] [id number] 07/04/2024 R Toy Sindy Attention deficit hyperactivity disorder (ADHD), unspecified ADHD type F90.9 [facility] [address] [place], [place] [id number] 08/01/2024 Minh [place] Attention deficit hyperactivity disorder (ADHD), unspecified ADHD type F90.9 [facility] [address] [place], [place] [id number] 09/02/2024 R Toy Sindy Attention deficit hyperactivity disorder (ADHD), unspecified ADHD type F90.9 [facility] [address] [place], [place] [id number] 09/26/2024 Minh [place] Essential hypertensi on I10 [facility] [address] [place], [place] [id number] 10/02/2024 R Toy Sindy Attention deficit hyperactivity disorder (ADHD), unspecified ADHD type F90.9 Assessments Encounter Date Diagnosis (ICD Code) Assessment Notes Treatment Notes Treatment Clinical Notes Section Notes 10/19/2023 Attention deficit hyperactivity disorder (ADHD), unspecified ADHD type (ICD-10 - F90.9) 11/19/2023 Attention deficit hyperactivity disorder (ADHD), unspecified ADHD type (ICD-10 - F90.9) 12/20/2023 Attention deficit hyperactivity disorder (ADHD), unspecified ADHD type (ICD-10 - F90.9) 01/01/2024 Seborrhea capitis (ICD-10 - L21.0) Recommend Nizoral shampoo 01/01/2024 Attention deficit hyperactivity disorder (ADHD), unspecified ADHD type (ICD-10 - F90.9) 01/21/2024 Attention deficit hyperactivity disorder (ADHD), unspecified ADHD type (ICD-10 - F90.9) 02/21/2024 Attention deficit hyperactivity disorder (ADHD), unspecified ADHD type (ICD-10 - F90.9) 03/25/2024 Attention deficit hyperactivity disorder (ADHD), unspecified ADHD type (ICD-10 - F90.9) 04/02/2024 Vertigo (ICD-10 - R42) Will start on meclizine and f/u on Sunday. If no improvement, will get an MRI. 04/02/2024 Non-recurrent acute serous otitis media of left ear (ICD-10 - H65.02) Reviewed labs and imaging from the ER. Will start on steroids and flonase and f/u on Sunday. 04/04/2024 Vertigo (ICD-10 - R42) Much improved. Will hold off on MRI and f/u next week. 04/04/2024 Non-recurrent acute serous otitis media of left ear (ICD-10 - H65.02) Much improved. 04/14/2024 Dizziness (ICD-10 - R42) 04/14/2024 Tinnitus of both ears (ICD-10 - H93.13) 04/28/2024 Attention deficit hyperactivity disorder (ADHD), unspecified ADHD type (ICD-10 - F90.9) 05/29/2024 Tick bite (ICD-10 - W57.XXXA) Notify office of suspicious rash or other systemic symptoms. 05/29/2024 Attention deficit hyperactivity disorder (ADHD), unspecified ADHD type (ICD-10 - F90.9) 07/04/2024 Attention deficit hyperactivity disorder (ADHD), unspecified ADHD type (ICD-10 - F90.9) 08/01/2024 Attention deficit hyperactivity disorder (ADHD), unspecified ADHD type (ICD-10 - F90.9) 09/02/2024 Attention deficit hyperactivity disorder (ADHD), unspecified ADHD type (ICD-10 - F90.9) 09/04/2024 Otitis externa (ICD-10 - H60.90) He is provided a standby prescription for ofloxacin drops if his symptoms worsen 09/04/2024 Attention deficit hyperactivity disorder (ADHD), unspecified ADHD type (ICD-10 - F90.9) 09/26/2024 Essential hypertension (ICD-10 - I10) 10/02/2024 Attention deficit hyperactivity disorder (ADHD), unspecified ADHD type (ICD-10 - F90.9) Plan Of Treatment Next Appt Details Provider Name:Yuko Alexander, 12/09/2024 10:00:00 AM, [address], [place], [place], [id number], Insurance Providers Payer Name Payer Address Payer Phone Subscriber Number Group Number Insured Name Patient Relationship to Insured Coverage Start Date Coverage End Date [employer] [address] [place] [address] [id number] ARLET VICTOR Self - patient is the insured Medications Administered Medication Instructions Date of Administration Dosage Notes Dexamethasone 07/17/2018 1 mL Dexamethasone 09/26/2018 1 mL Dexamethasone 10/09/2018 1 mL Given by Danette Oseguera. Dexamethasone 06/23/2019 1 mL Dexamethasone 08/13/2019 1 mL Medical (General) History Medical History History ICD Code ADHD, Dx 2007 Lumbar Disc Herniation (L5-S1), s/p work injury Gout Testosterone deficiency Surgical History Surgery Date(Month/Year) back surgery x 3 cholecystectomy tonsillectomy Left thumb - repair nerve Back surgery - Fusion L5-S1 with Rods, s crews, and cage Jan 23, 2018 Left ankle surgery August 2020 Left Ankle surgery repair again January Implanted nerve stimilator - Dr. Ortiz 202 2 Infusion of SI Joint 05/2022 Hospitalization History Reason Date(Month/Year) [facility] ER - High Blood Pressure 02/04/2020
--- NOTE | 2024-10-13 10:15 | CA_ITS ---
APPROVED REPORT EXAM: Comprehensive 2D, Doppler, and color-flow Echocardiogram Surgical Manager: Jihan Em RVT Ht: 6 ft 1 in Wt: 292lbs BSA: 2.53 BP: 129/71 mmHg Indications: DIZZINESS,EDEMA 2D Dimensions Left Atrium 3.91 cm M: 3.0 - 4.0 LA Volume 44.20 mL RVID Base (AP4) 2.75 cm (M/F) 2.5-4.1 LA Volume Index 17.47 mL/m2 (M/F) 16-34 LVOT 2.20 cm (M/F) 1.5-2.5 EF AP4 59.20 % GL Strain -14.9 % M-Mode Dimensions RVDd 2.70 cm (0.9-2.6) LVDd 5.59 cm (3.5-5.7) Ao Diam 3.21 cm (2.0-3.7) LVDs 3.65 cm (3.5-5.7) IVSd 0.87 cm (0.6-1.1) PWd 0.72 cm (0.6-1.1) EF (Teich) 63.20% FS 34.70% EDV (Teich) 153.00 mL TAPSE 2.40 (<1.7) ESV (Teich) 56.30 mL LV Diastology E Decel Time 222 (160-240 msec) E/A Ratio 1.3 MED E' 7.3 (>= 7 cm/sec) E'/MED E' Ratio 10.93 (<= 14) LAT E' 8.4 (>= 10 cm/sec) E/LAT E' Ratio 9.50 (<= 14) Aortic Valve LVOT Max 99.0 (70-110 cm/s) MAGY Index 1.41 cm2/m2 LVOT VTI 19.27 cm AoV Peak Gabriel. 116.0 (50-130 cm/s) AO Peak GR. 5.30 mmHg AO Mean GR. 3.40 (<5 mmHg) AO VTI 20.6 (18-25 cm) MAGY (VTI) 3.56 (2.5-4.5 cm2) Mitral Valve MV E Max Gabriel. 80.0 (40-130 cm/s) MV A Velocity 63.0 (40-130 cm/s) E/A Ratio 1.27 MV Decel. Time 222 (160-240 ms) Left Ventricle The left ventricle is normal size. Left ventricular systolic function is normal. The left ventricular ejection fraction is within the normal range. There is normal left ventricular wall thickness. There is normal LV segmental wall motion. The left ventricular diastolic function is normal. LVEF is 55% Right Ventricle The right ventricle is normal size. The right ventricular systolic function is normal. Atria The left atrium size is normal. The right atrium size is normal. There is no color Doppler evidence of interatrial shunt. Aortic Valve The aortic valve opens well. There is no hemodynamically significant aortic valvular stenosis. No aortic regurgitation is present. Mitral Valve The mitral valve is normal in structure. No evidence of mitral valve stenosis. Trace mitral regurgitation is present. Tricuspid Valve The tricuspid valve leaflets are thin and pliable. Trace tricuspid regurgitation. There is insufficient TR jet to estimate RVSP. Pulmonic Valve The pulmonary valve is grossly normal in structure. Trace pulmonic valve regurgitation is present. Great Vessels The aortic root is normal in size. IVC is normal in size and collapses >50% with inspiration. Pericardium There is no pericardial effusion. Other Information Study Quality: Fair Conclusion Normal biventricular systolic function. No significant valvular stenosis or regurgitation. Electronically signed by : Monika Villavicencio MD 10/14/2024 15:15:32
== END 2024-10-13 23:59 | disposition home or self-care (01) ==
LOC: RT 09:54
PROVIDERS: PCP Family Medicine; Visit Provider Physician Assistant
DX: I34.0 Nonrheumatic mitral (valve) insufficiency (principal); I10 Essential (primary) hypertension; R42 Dizziness and giddiness; Z82.49 Family history of ischemic heart disease and other diseases of the circulatory system
CPT/HCPCS: 93306

== ENCOUNTER 2024-10-23 07:02 | Outpatient (CLI) | payer BC, SELFPAY ==
--- OUTSIDE RECORDS SUMMARY | 2024-04-14 07:30 | XMS_ITS ---
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 Referred Provider Specialty ENT General Notes Liberty Burgess 04/14/19 12:58:50 PM > faxed to [facility] Jenifer BURLESON Brynn 04/15/2024 9:34:59 AM > 05/01/2024 at 11:00am Referral Priority Routine REASON FOR VISIT vertigo and dizzness Medications Medication SIG (Take, Route, Frequency, Duration) Notes Start Date End Date Status Lisinopril 20 MG 1 tab(s) orally once a day Active Methocarbamol 750 MG 1 cap(s) orally at bedtime as needed Active Meclizine HCl 25 MG 1 tablet as needed Orally Three times a day Active Amitriptyline HCl 25 MG 1 or 2 tablet at bedtime Orally Once a day 04/14/2024 Active Flonase Allergy Relief 50 MCG/ACT 1 spray in each nostril Nasally Once a day Active Vyvanse 40 MG 1 capsule in the mor david orally Once a day; Duration: 30 day(s) 03/25/2024 Active Problems Problem Type SNOMED Code ICD Code Onset Dates Problem Status W/U Status Risk Notes Problem Bilateral tinnitus (1802661452535) Tinnitus of both ears (H93.13) Active confirmed Vital Signs Blood pressure systolic 120 mm Hg 04/14/19 25 Blood pressure diastolic 74 mm Hg 025 Heart Rate 70 /min 04/14/2024 Height 73 in 04/14/2024 Weight 293.4 lbs 04/14/2024 BMI 38.71 kg/m2 04/14/2024 Encounters Encounter Location Date Provider Diagnosis [facility] 1210 [facility] 36 [facility] [address] [place], [place] [phone] 04/14/2024 Minh Pop Tinnitus of both ear s H93.13 and Dizziness R42 Assessments Encounter Date Diagnosis (ICD Code) Assessment Notes Treatment Notes Treatment Clinical Notes Section Notes 04/14/2024 Tinnitus of both ears (ICD-10 - H93.13) 04/14/2024 Dizziness (ICD-10 - R42) Plan Of Treatment Medication Medication Name Sig Start Date Stop Date Notes Amitriptyline HCl 25 MG 1 or 2 tablet at bedtime Orally Once a day 04/14/2024 Referrals Referral Date Details 04/14/2024 04/14/2024, [facility], . E NT Next Appt Details Follow Up: via phone to repo rt progress, Reason: Provider Name:Yuko Toy Carter eric, 12/09/2024 10:00:00 AM, 1210 [facility] 36 [facility], [address], [place], [place], [phone], Progress Notes * ARLET ELYDOB: 7 (49 yo M)Acc No.[id number]:04/14/2024 Progress Notes Patient: ARLET CARO Provider: Yi Pop M.D. :1975 A ge:49 Y S ex:Male Date:04/14/2024 Address:[address] [place], [place] [phone] Subjective: * Chief Complaints: * 1 . Vertigo and dizzness. * HPI: E NT/respiratory: 49 year old male presents with c/o ringing in ear P t complains of ongoing bilateral ear ringing. Pt states he did finish taking medrol dose pack and it seemed to help for a couple days but ringing has returned. Pt states that when he talked it sounds like a robot . * ROS: D ERMATOLOGY: no R anna. n o H obye. G ASTROENTEROLOGY: no N ausea. n o [...] Joint 05/2022. * Hospitalization/Major Diagno stic Procedure: H ER - High Blood Pressure 02/04/2020. * [...] needed Orally Three times a day , Discontinued Medrol 4 MG Tablet Therapy Pack as directed orally daily , Medication List reviewed and reconciled with the patient * Allergies: B actrim DS: rash - Allergy. Objective: * Vitals: W t:293.4, Temp:97.8, BP:120/74, HR:70, Nurse:katherine, Ht: 73, BMI:38.71. * Examination: E NT/Respiratory: General Appearance: N AD. E ars: a uditory canals normal bilaterally, TM's WNL. H eart : R RR, normal S1 S2. L ungs: c lear to auscultation bilaterally. Assessment: * Assessment: 1. T innitus of both ears - H93.13 (Primary) 2 . D izziness - R42 ? Plan: * Treatment: * Procedure Codes: 3 074F SYST BP LT 130 MM HG, 3078F DIAST BP < 80 MM HG * Follow Up: v ia phone to report progress * Images: Billing Information: * Visit Code: 73234 Office Visit, Est Pt., Level 3. * Procedure Codes: 3074F SYST BP LT 130 MM HG. 3078F DIAST BP < 80 MM HG. * Electronic signature of Rhonda Pop MD on 10/23/2024 at 07:05 AM EDT Sign off status: Pending * Provider: Yi Pop M.D. Date: 0 04/14/2024 Generated for Martin deutsch/Jose Manuel/eTransmitting on: 0 10/23/2024 07:05 AM EDT History and Physical Notes * HPI (History of Present Illness) Category Sub-Category Detail Notes Category Not es ENT/respiratory ringing in ear Pt complains of ongoing bilateral ear ringing. Pt states he did finish taking medrol dose pack and it seemed to help for a couple days but ringing has returned. Pt states that when he talked it sounds like a robot Examination Category Sub-Category Detail Notes Category Not es ENT/Respiratory Ears: auditory canals normal bilaterally, TM's WNL Heart : RRR, normal S1 S2 Lungs: clear to auscultatio n bilaterally General Appearance: NAD Consultation Request Notes Referral Date Referring Provider Referred Provider Not es 04/14/2024 Minh Pop ENT, . [facility]
--- OUTSIDE RECORDS SUMMARY | 2024-05-29 06:00 | XMS_ITS ---
Author Organization [facility] Address [address] [facility] [address] [place] [id number] Care Team Providers Care Board Lining Machine Operator Name Role Phone Pretty Popian Primary Care Provider Yuko Callahan Unavailable [phone] Allergies Allergen (clinical drug ingredient) Drug/Non Drug Allergy documented on EMR Reaction Allergy Type Onset Date Status sulfamethoxazole / trimethoprim Bactrim DS rash Drug Allergy Active REASON FOR VISIT checkup and refills, Needs labs with PSA Medications Medication SIG (Take, Route, Frequency, Duration) Notes Start Date End Date Status Meclizine HCl 25 MG 1 tablet as needed Orally Three times a day Active Amitriptyline HCl 25 MG 1 or 2 tablet at bedtime Orally Once a day 04/14/2024 Not-Taking Methocarbamol 750 MG 1 cap(s) orally at bedtime as needed Active Flonase Allergy Relief 50 MCG/ACT 1 spray in each nostril Nasally Once a day Active Vyvanse 40 MG 1 capsule in the morning orally Once a day; Duration: 30 day(s) 05/29/2024 Active Lisinopril 20 MG 1 tab(s) orally once a day Active Vital Signs Blood pressure systolic 122 mm Hg 05/30/19 25 Blood pressure diastolic 74 mm Hg 025 Heart Rate 80 /min 05/29/2024 Height 73 in 05/29/2024 Weight 298 lbs 05/29/2024 BMI 39.31 kg/m2 05/29/2024 Encounters Encounter Location Date Provider Diagnosis [facility] [address] [facility] [address] [place] [id number] 05/29/2024 Yuko Callahan Attention deficit hyperactivity disorder (ADHD), unspecified ADHD type F90.9 and Tick bite W57.XXXA Assessments Encounter Date Diagnosis (ICD Code) Assessment Notes Treatment Notes Treatment Clinical Notes Section Notes 05/29/2024 Attention deficit hyperactivity disorder (ADHD), unspecified ADHD type (ICD-10 - F90.9) 05/29/2024 Tick bite (ICD-10 - W57.XXXA) Notify office of suspicious rash or other systemic symptoms. Plan Of Treatment Medication Medication Name Sig Start Date Stop Date Notes Vyvanse 40 MG 1 capsule in the mor david orally Once a day; Duration: 30 day(s) 05/29/2024 Treatment Notes Assessment Notes Tick bite Notify office of steve picious rash or other systemic symptoms. Next Appt Details Follow Up: 3 Months, Reason: Provider Name:Yuko Alexander, 12/09/2024 10:00:00 AM, [address] [facility] 36 [facility], [address] [place] [address], [phone], Progress Notes * ARLET VICTORDOB: 7 (49 yo M)Acc No.[id number]:05/29/2024 Progress Notes Patient: ARLET CARO Provider: Yuko Callahan M.D. :1975 A ge:49 Y S ex:Male Date:05/29/2024 Address:[address] [place] [address] Pcp:Minh Pop Subjective: * Chief Complaints: * 1 . Checkup and refills. 2. Needs labs with PSA. * HPI: P sychology: Pt presents today for a check up and refills. D ermatology: c/o h/o insect bite P t sts that he r emoved a tick?from his right shoulder on Sunday. Denies rash or fever. * ROS: D ERMATOLOGY: no R anna. [...] URRENT TOBACCO USE: No . 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 Past smoking status: never smoked. * Medications: T aking Lisinopril 20 MG Tablet 1 tab(s) orally once a day , Taking Methocarbamol 750 MG Tablet 1 cap(s) orally at bedtime as needed , Taking Flonase Allergy Relief 50 MCG/ACT Suspension 1 spray in each nostril Nasally Once a day , Taking Meclizine HCl 25 MG Tablet 1 tablet as needed Orally Three times a day , Taking Vyvanse 40 MG Capsule 1 capsule in the morning orally Once a day , Not-Taking Amitriptyline HCl 25 MG Tablet 1 or 2 tablet at bedtime Orally Once a day , Medication List reviewed and reconciled with the patient * Allergies: B actrim DS: rash - Allergy. Objective: * Vitals: W t: 298, Temp: 98.3, BP: 122/74, HR: 80, Nurse: BRANDON, Ht: 73, BMI:39.31. * Examination: G eneral Examination: General Appearance: N AD. Affect good. H eart:?RSR. L ungs: c lear to auscultation. S kin: 5 mm reddened area at site of tick bite on top of right shouler. No induration or drainage. Assessment: * Assessment: 1. A ttention deficit hyperactivity disorder (ADHD), unspecified ADHD type - F90.9 (Primary)? 2. T ick bite - W57.XXXA Plan: * Treatment: 2. T ick bite Notes: Notify office of suspicious rash or other systemic symptoms. * Procedure Codes: 3 074F SYST BP LT 130 MM HG, 3078F DIAST BP < 80 MM HG * Follow Up: 3 Months * Images: Billing Information: * Visit Code: 88878 Office Visit, Est Pt., Level 3. * Procedure Codes: 3074F SYST BP LT 130 MM HG. 3078F DIAST BP < 80 MM HG. * Electronic signature of Yuko Callahan MD on 10/23/2024 at 07:05 AM EDT Sign off status: Pending * Provider: Yuko Callahan M.D. Date: 0 05/29/2024 Generated for Martin deutsch/Jose Manuel/Jimmy on: 0 10/23/2024 07:05 AM EDT History and Physical Notes * HPI (History of Present Illness) Category Sub-Category Detail Notes Category Not es Dermatology h/o insect bite Pt sts that he r emoved a tick from his right shoulder on Sunday. Denies rash or fever Psychology Pt presents tod ay for a check up and refills Examination Category Sub-Category Detail Notes Category Not es General Examination Heart: RSR Lungs: clear to auscultatio n General Appearance: NAD. Affect good Skin: 5 mm reddened area a t site of tick bite on top of right shouler. No induration or drainage
--- OUTSIDE RECORDS SUMMARY | 2024-09-04 05:15 | XMS_ITS ---
[facility] Address [facility] [address] [phone] Care Team Providers Care Sewer And Inspector Name Role Phone Kiesha Minh Primary Care Provider Yuko Callahan [phone] Allergies Allergen (clinical drug ingredient) Drug/Non Drug [...] W/U Status Risk Notes Problem Otitis externa (4916647) Otitis externa (H60.90) Active confirmed Vital Signs Blood pressure systolic 120 mm Hg 09/05/19 25 Blood pressure diastolic 72 mm Hg 025 Heart Rate 84 /min 09/04/2024 Height 73 in 09/04/2024 Weight 296.6 lbs 09/04/2024 BMI 39.13 kg/m2 09/04/2024 Encounters Encounter Location Date Provider Diagnosis [facility] [facility] 36 [facility] [address] [place] [phone] 09/04/2024 Yuko Callahan Otitis externa H60.9 0 [...] Follow Up: 3 Months, Reason: Provider Name:Yuko Crater eric, 12/09/2024 10:00:00 AM, [address] [facility] 36 [facility], [address], [place], [phone], Progress Notes * ARLET VICTORDOB: 7 (49 yo M)Acc No.[id number]:09/04/2024 Progress Notes Patient: ARLET CARO Provider: Yuko Callahan M.D. :1975 A ge:49 Y S ex:Male Date:09/04/2024 Address:[address] [place] [address] Pcp:Minh Pop Subjective: * Chief Complaints: * [...] 05/2022. * Hospitalization/Major Diagno stic Procedure: [facility] - High Blood Pressure 02/04/2020. * Family History: F ather: 66 yrs, diagnosed with Cancer. M other: alive 73 yrs, diagnosed with Hypertension. S iblings: alive, diagnosed with Hypertension. C cornelius: alive, diagnosed with Mental Illness. 1 brother(s) . 1 son(s) . . Lung Cancer, ADHD. * Social History: C URRENT TOBACCO USE: No . 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 Past smoking status: never smoked. * [...] Temp: 98.6, BP: 120/72, HR: 84, Nurse: mmirina, Ht: 73, BMI:39.13. * Examination: G eneral [...] * Images: Billing Information: * Visit Code: 78596 Office Visit, Est Pt., Level 3. * [...] Date: 0 09/04/2024 Generated for Martin deutsch/Jose Manuel/Jimmy on: 10/23/2024 07:05 AM EDT History and Physical [...] feels better today HPI Patient is here toaj y for Pt is here today for a 3 month check up Examination Category Sub-Category Detail Notes Category Not es General Examination HEENT: Left externa l canal is mildly swollen. There is tenderness with palpation of the tragus Heart: RSR Lungs: clear to auscultatio n General Appearance: NAD
--- NOTE | 2024-10-23 | CA_ITS ---
APPROVED REPORT Exam: Pharmacologic Technologist: Lilian Alcocer Ht: 6 ft 1 in Wt: 292 lbs BSA: 2.53 m2 HR: 57 bpm BP: 123/77 mmHg Medical History Cardiac Risk Factors: HTN, FHX of CAD Stress Test Details HR Resting HR: 57 bpm Max Heart Rate (APMHR): 172 bpm Target HR (85% APMHR): 146 bpm Recovery HR: 64 bpm BP Resting BP: 123.0/77.0 mmHg Recovery BP: 90.0/45.0 mmHg ECG Stress ECG Conclusion During lexiscan pt experinced hypotension, dyspnea, nausea and near syncope. No arrhythmias noted. Less than .5mm upsloping ST segment changes. Nondiagnostic ECG lexiscan. 9:08am- 50mg aminophylline given 9:09am- 50mg aminophylline given Electronically signed by : Monika Villavicencio MD 10/24/2024 00:46:45
--- OUTSIDE RECORDS SUMMARY | 2024-10-23 07:05 | XMS_ITS | Clinical Summary ---
Author Organization [facility] ystem Address [address] [place] [address] Care Team Providers Care Security Representative Name Role Phone Minh Pop MD Primary Care Provider [phone] Social History Tobacco Use Types Packs/Day Years Used Date Smoking Tobacco: Never Assessed Sex and Gender Information Value Date Recorded Sex Assigned at Not on file Legal Sex Male 2:54 PM EDT Gender Identity Not on file Sexual Orientation Not on file Plan of Treatment Upcoming Encounters Date Type Department Care Team (Late st Contact Info) Description 11/03/2024 9:10 AM EDT Office Visit [facility] UROLOGY [address] [facility] [address] [place] [address] Emeka Varela MD [address] [facility] [address] [place], [place] [id number] Health Maintenance Due Date Last Done Comments [...] patient's age to complete this topic Insurance [facility] PPO Care Teams Security Representative Relationship Specialty Start Date End Date Minh Pop MD [address] [facility] [address] [facility] [address] [place] [address] PCP - General Family Medicine 09/24/24
--- OUTSIDE RECORDS SUMMARY | 2024-10-23 07:05 | XMS_ITS | Patient Health Record ---
Author Organization [facility] Address [address] [facility] [address] [place] [id number] Care Team Providers Care Structural Engineering Technician Name Role Phone Minh Pop Primary Care Provider Yuko Callahan Unavailable [phone] Alfreda Anglin Unavailable [phone] Allergies Allergen (clinical drug ingredient) Drug/Non Drug [...] Lab: Notes/Report: Negative Reason For Referral Reason [facility] Diagnosis 1 Tinnitus of both ear s (H93.13) Referral Organization [facility] Referring Provider First Name Minh Referring Provider Last Name Kiesha Referring Provider Speciality Family Pra ctice Referred Provider ENT, . Referred Provider Specialty ENT General Notes Liberty Burgess 04/14/19 25 12:58:50 PM > faxed to [facility] Jenifer BURLESON Brynn 04/15/2024 9:34:59 AM [...] Status Risk Notes Problem Vitamin D deficiency (08869733) Vitamin D deficiency (E55.9) Active confirmed Problem Gout (58729067) Gout (M10.9) Active confirmed Problem Essential hypertension (47831403) Essential hypertension (I10) Active confirmed Problem Otitis externa (8001215) Otitis externa (H60.90) Active confirmed Problem Obstructive sleep apnea (92799359) Obstructive sleep apnea (G47.33) Active confirmed Problem Bilateral tinnitus (8857222060555) Tinnitus of both ears (H93.13) Active confirmed Problem Attention deficit hyperactivity disorder (003293397) Attention deficit hyperactivity disorder (ADHD), unspecified ADHD type (F90.9) Active confirmed Problem Obese class II (224629122428782) BMI 37.0-37.9, adult (Z68.37) Active confirmed Problem Gout (41478291) Acute gout of right foot, unspecified cause (M10.9) Active confirmed Problem Gout (78059961) Acute gout involving toe of right foot, unspecified cause (M10.9) Active confirmed Problem Obesity (443843614) Non morbid obesity (E66.9) Active confirmed Vital Signs Heart Rate 84 /min 09/04/2024 Blood pressure diastolic 72 mm Hg 09/04/2024 Height 73 in 09/04/2024 Blood pressure systolic 120 mm Hg 09/04/2024 Weight 296.6 lbs 09/04/2024 BMI 39.13 kg/m2 09/04/2024 Encounters Encounter Location Date Provider Diagnosis [facility] [address] [place] [address], [place] [id number] 01/01/2024 R Toy Sindy Attention deficit hyperactivity disorder (ADHD), unspecified ADHD type F90.9 and Seborrhea capitis L21.0 [facility] [address] [facility] [address] [place], [place] [id number] 04/02/2024 Alfreda Crowdy Non-recurrent acute serous otitis media of left ear H65.02 and Vertigo R42 [facility] [address] [place], [place] [id number] 04/04/2024 Alfreda Crowdy Non-recurrent acute serous otitis media of left ear H65.02 and Vertigo R42 [facility] [address] [place], [place] [id number] 04/14/2024 Minh [place] Tinnitus of both ear s H93.13 and Dizziness R42 Rachael [address] [place], [place] [id number] 05/29/2024 R Toy Sindy Attention deficit hyperactivity disorder (ADHD), unspecified ADHD type F90.9 and Tick bite W57.XXXA [facility] [address] [place], [place] [id number] 09/04/2024 R Toy Sindy Otitis externa H60.9 0 and Attention deficit hyperactivity disorder (ADHD), unspecified ADHD type F90.9 [facility] [address] [place], [place] [id number] 11/19/2023 R Toy Sindy Attention deficit hyperactivity disorder (ADHD), unspecified ADHD type F90.9 [facility] [address] [place], [place] [id number] 12/20/2023 R Toy Sindy Attention deficit hyperactivity disorder (ADHD), unspecified ADHD type F90.9 [facility] [address] [place], [place] [id number] 01/21/2024 R Toy Sindy Attention deficit hyperactivity disorder (ADHD), unspecified ADHD type F90.9 [facility] [address] [place], [place] [id number] 02/21/2024 R Toy Sindy Attention deficit hyperactivity disorder (ADHD), unspecified ADHD type F90.9 [facility] [address] [place], [place] [id number] 03/04/2024 Minh [place] [facility] [address] [place] [id number] 03/25/2024 R Toy Sindy Attention deficit hyperactivity disorder (ADHD), unspecified ADHD type F90.9 [facility] [address] [place], [place] [id number] 04/28/2024 R Toy Sindy Attention deficit hyperactivity disorder (ADHD), unspecified ADHD type F90.9 [facility] [address] [place], [place] [id number] 07/04/2024 R Toy Sindy Attention deficit hyperactivity disorder (ADHD), unspecified ADHD type F90.9 [facility] [address] [place] [id number] 08/01/2024 Minh [place] Attention deficit hyperactivity disorder (ADHD), unspecified ADHD type F90.9 [facility] [address] [place], [place] [id number] 09/02/2024 R Toy Sindy Attention deficit hyperactivity disorder (ADHD), unspecified ADHD type F90.9 [facility] [address] [place], [place] [id number] 09/26/2024 Minh [place] Essential hypertensi on I10 [facility] [address] [place], [place] [id number] 10/02/2024 R Toy Sindy Attention deficit hyperactivity disorder (ADHD), unspecified ADHD type F90.9 Assessments Encounter Date Diagnosis (ICD Code) Assessment Notes Treatment Notes Treatment Clinical Notes Section Notes 11/19/2023 Attention deficit hyperactivity disorder (ADHD), unspecified [...] Of Treatment Next Appt Details Provider Name:Yuko Carter eric, 12/09/2024 10:00:00 AM, [address], [place], [place], [id number], Insurance Providers Payer Name Payer Address Payer Phone Subscriber Number Group Number Insured Name Patient Relationship to Insured Coverage Start Date Coverage End Date [employer] [address] [place] [address] [id number] ARLET VICTOR Self - patient is [...] SI Joint 05/2022 Hospitalization History Reason Date(Month/Year) [facility] ER - High Blood Pressure 02/04/2020
--- NOTE | 2024-10-23 07:30 | NM_ITS ---
APPROVED REPORT Exam: Nuclear Stress Test Indication: cp..palpitations..syncope..fatigue Patient Location: Outpatient Stress Tech: Lilian TRUJILLO Tech:Rose Coronado JIMAna RT(R)(N) Ht: 6 ft 1 in Wt: 285 lbs HR: 57 bpm BP: 123/77 mmHg BSA: 2.50 m2 TID: 1.16 BMI: 37.5 History: cp..palpitations..syncope..fatigue Procedure: Patient received 0.4 mg of intravenous Lexiscan, resting heart rate 57 bpm, resting blood pressure 123/77 mmHg, with Lexiscan maximum heart rate achieved was 92 bpm which is 85 % of the maximum predicted heart rate and blood pressure was 122/69 mmHg. With Lexiscan, patient denied any complaint of chest pain. Cardiac Stress and Resting SPECT Images: Cardiac Stress and Resting SPECT images were obtained using technetium 99m Myoview 30.3 mCi stress and 10.41 mCi at rest. Resting and stress imaging in supine and prone positions demonstrate a medium sized, moderate, partially reversible perfusion defect in the basal to mid inferior LV devries. Gated imaging demonstrates normal global LV systolic function. LVEF is calculated 54%. Conclusion: Medium sized, moderate, partially reversible perfusion defect in the basal to mid inferior LV devries. Findings are suggestive of partial reversible ischemia. Gated imaging demonstrates normal global LV systolic function. LVEF is calculated 54%. Electronically signed by : Monika Villavicencio MD 10/24/2024 00:40:59
[2024-10-23] MEDS: SODIUM CHLORIDE 0.9% 10ML SYR (RAD ONLY) 10 ML IV ×2 (09:36→09:37)
[2024-10-23] MEDS: ISOTOPE MYOVIEW (PER STUDY) 1 DOSE IV (09:36)
== END 2024-10-23 23:59 | disposition home or self-care (01) ==
PROVIDERS: PCP Family Medicine; Visit Provider Nurse Practitioner Family
DX: R94.39 Abnormal result of other cardiovascular function study (principal); R94.31 Abnormal electrocardiogram [ECG] [EKG]; R00.2 Palpitations; R55 Syncope and collapse; R53.83 Other fatigue; Z82.49 Family history of ischemic heart disease and other diseases of the circulatory system
CPT/HCPCS: 78452; 93017; 93018; A9502; J2785

== ENCOUNTER 2024-11-14 08:32 | Day surgery (SDC) | payer BC, SELFPAY ==
[2024-11-14] VITALS (11 sets, daily range): BP systolic 100–130; BP diastolic 57–114; PULSE 58–71; RESP 16–20; O2SAT 90–98; BMI 38.6
--- NOTE | 2024-11-14 07:02 | IR_ITS ---
APPROVED REPORT Patient Location: Outpatient PROCEDURES Left heart catheterization Left ventriculogram Selective coronary angiogram INDICATION Abnormal Myoview, Angina pectoris, Informed consent was obtained prior to the procedure. COMPLICATIONS NONE Estimated Blood Loss: LESS THAN 10 ML TECHNIQUE One percent lidocaine used to anesthetize the right anterior aspect of the wrist. The right radial artery was accessed via the Seldinger technique. A 6 Omani sheath was placed in the right radial artery. 2.5 mg of Verapamil, 800 mcg of nitroglycerin, 1mg Lidocaine and 5000 U Heparin were given through the arterial sheath. The JL3 catheter was also used to perform left heart catheterization, left ventriculogram and selective coronary angiogram. At the end of the procedure the sheath was removed good hemostasis was achieved using Traclet band, patient was transferred to the postop holding area in stable condition. ANGIOGRAPHIC RESULTS The left main artery Normal The left anterior descending artery Is proximally normal followed by mid vessel 20 to 30% concentric stenosis The circumflex artery Large dominant and normal The right coronary artery Nondominant with a proximal 10 to 20% stenosis The ARMSTRONG ventriculogram reveals Normal 65% The left ventricular end-diastolic pressure 15 mmHg IMPRESSION Mild mid LAD disease and proximal nondominant right coronary disease as described above Normal ejection fraction Borderline LVEDP PLAN 1. Rest of risk factor modification Electronically signed by : Obed Birmingham MD 11/14/2024 10:52:16
[2024-11-14 09:01] LABS: Hematocrit 42.7 % (42.0-52.0); Hemoglobin 14.5 g/dL (14.1-18.0); Immature Granulocytes % 0.5 %; Mean Corpuscular HGB Conc 34.0 g/dL (31.8-35.4); Mean Corpuscular Hemoglobin 29.2 pg (27.0-31.2); Mean Corpuscular Volume 85.9 fl (80-94); Nucleated Red Blood Cells % 0 %; Platelet Count 325 K/mm3 (142-424); Red Blood Count 4.97 M/mm3 (4.60-6.20); Red Cell Distribution Width-SD 42.5 fL; White Blood Count 8.7 K/mm3 (4.8-10.8)
[2024-11-14] MEDS: LIDOCAINE 1% 10ML MDV 10 ML IJ (10:15)
[2024-11-14] MEDS: NITROGLYCERIN 800MCG/8ML SYR (CATH LAB) 800 MCG IA (10:15)
[2024-11-14] MEDS: HEPARIN 1,000 UNITS/500ML NS (CATH LAB) 3000 UNIT IV (10:15)
[2024-11-14] MEDS: 0.9 % SODIUM CHLORIDE 500 ML 25 ML IV (10:15)
[2024-11-14] MEDS: VERAPAMIL 2.5MG/ML 2ML VIAL 2.5 MG IV (10:16)
[2024-11-14 10:31] LABS: Chloride 101 mmol/L (98-107); Sodium 137 mmol/L (136-145)
[2024-11-14 10:32] LABS: Potassium 4.7 mmoL/L (3.5-5.1)
[2024-11-14 10:34] LABS: Blood Urea Nitrogen 17 mg/dl (9-20); Creatinine Clearance Estimated 189 mL/min (50-200); Creatinine,Serum 0.90 mg/dl (0.66-1.25); Estimated Glomerular Filt Rate 90 ml/min (>60); GFR (African American) 109 ML/MIN (>60)
[2024-11-14 10:35] LABS: Anion Gap 15.7 mEq/L (5-15); Calcium 9.5 mg/dl (8.4-10.2); Carbon Dioxide 25 mmol/L (22.0-30.0); Glucose 97 mg/dl (74-100)
[2024-11-14] MEDS: MIDAZOLAM HCL 1MG/ML 5ML VIAL 1 MG IV (10:45)
[2024-11-14] MEDS: FENTANYL 100MCG/2ML VIAL 50 MCG IV (10:45)
[2024-11-14] MEDS: NITROGLYCERIN SPRAY 0.4MG/SPRAY 4.9GM 0.4 MG TL (10:51)
--- NOTE | 2024-11-14 11:30 | SUR.PHASEII ---
Family at bedside
--- NOTE | 2024-11-14 13:11 | SUR.PHASEII ---
PATIENT HAD VAGAL REACTION ONCE IN VEHICLE, BROUGHT BACK IN LAB AT THIS TIME. VITALS HR-56, BP 85/40, NEW IV STARTED IN RIGHT HAND, NS 500ML GIVEN PER MD INSTRUCTION
[2024-11-14] MEDS: IOPAMIDOL-370 (76%);100ML BOTTLE 50 ML IV (13:30)
--- NOTE | 2024-11-14 13:49 | SUR.PHASEII ---
DR TURNER SPOKE WITH PATEINT REGARDING VAGAL REACTION. VITALS WNL AT THIS TIME, PATIENT STATES HE FEELS BETTER. DISCHARGED NOW,TAKEN TO CAR VIA WHEELCHAIR WITH SPOUSE.
== END 2024-11-14 12:52 | disposition home or self-care (01) ==
PROVIDERS: PCP Family Medicine; Visit Provider Internal Medicine
PROC: 4A023N7 Measurement of Cardiac Sampling and Pressure, Left Heart, Percutaneous Approach (ICD-10-PCS; CPT 93452; principal; 2024-11-14 08:45)
DX: I25.118 Atherosclerotic heart disease of native coronary artery with other forms of angina pectoris (principal); R55 Syncope and collapse; R94.39 Abnormal result of other cardiovascular function study; I34.0 Nonrheumatic mitral (valve) insufficiency; I10 Essential (primary) hypertension; K30 Functional dyspepsia; R53.83 Other fatigue; R60.9 Edema, unspecified; Z86.14 Personal history of Methicillin resistant Staphylococcus aureus infection; Z79.82 Long term (current) use of aspirin; Z79.51 Long term (current) use of inhaled steroids; Z79.899 Other long term (current) drug therapy; Z88.1 Allergy status to other antibiotic agents; Z88.2 Allergy status to sulfonamides; Z82.49 Family history of ischemic heart disease and other diseases of the circulatory system
CPT/HCPCS: 80048; 85025; 93458; 99152; C1725; C1769; J1200; J1644; J2003; J3010; J7040; Q9967

== ENCOUNTER 2024-12-24 07:43 | Outpatient (CLI) | payer BC, SELFPAY ==
--- OUTSIDE RECORDS SUMMARY | 2024-01-01 05:00 | XMS_ITS ---
[facility] Organization [facility] [address] [facility] [address] [id number] Care Team Providers Care Poem Writer Name Role Phone Minh Pop Primary Care Provider [phone] Yuko Callahan Unavailable [phone] Allergies Allergen (clinical drug ingredient) Drug/Non Drug Allergy documented on EMR Reaction Allergy Type Onset Date Status sulfamethoxazole / trimethoprim Bactrim DS rash Drug Allergy Active REASON FOR VISIT 3 Month Check Up Medications Medication SIG (Take, Route, Frequency, Duration) Notes Start Date End Date Status AndroGel *Please review and pick correct strength-formula tion from [employer] [address] [employer] options. If intended option is not shown, discontinue and re-order from Quick Search* Not-Taking Doxycycline Hyclate 100 MG 1 tablet Orally Two times a day; Duration: 10 day(s) 07/24/2023 Not-Taking Methocarbamol 750 MG 1 cap(s) orally at bedtime as needed Active Colchicine 0.6 MG 1 tab(s) orally as directed Active Lisinopril 20 MG 1 tab(s) orally once a day Active valACYclovir HCl 1 GM 2 tab(s) orally 2 times a day; Duration: 2 Not-Taking Potassium Chloride 99 MG 1 TAB(S) ORALLY ONCE A DAY; Duration: 30 DAY(S) Not-Taking Vyvanse 40 MG 1 cap(s) orally once a day (in the morning) Active Magnesium Gluconate 250 MG 1 tab(s) orally 2 times a day; Duration: 30 day(s) Not-Taking Dexmethylphenidate HCl ER 20 MG 1 cap(s) orally once a day (in the morning); Duration: 30 day(s) 10/27/2021 Not-Taking Vital Signs Blood pressure systolic 122 mm Hg 01/01/20 24 Blood pressure diastolic 78 mm Hg 024 Heart Rate 75 /min 01/01/2024 Height 73 in 01/01/2024 Weight 283.4 lbs 01/01/2024 BMI 37.39 kg/m2 01/01/2024 Encounters Encounter Location Date Provider Diagnosis [facility] [address] [facility] [address] [facility] [address] [place], [place] [id number] 01/01/2024 Yuko Callahan Attention deficit hyperactivity disorder (ADHD), unspecified ADHD type F90.9 and Seborrhea capitis L21.0 Assessments Encounter Date Diagnosis (ICD Code) Assessment Notes Treatment Notes Treatment Clinical Notes Section Notes 01/01/2024 Attention deficit hyperactivity disorder (ADHD), unspecified ADHD type (ICD-10 - F90.9) 01/01/2024 Seborrhea capitis (ICD-10 - L21.0) Recommend Nizoral shampoo Plan Of Treatment Medication Medication Name Sig Start Date Stop Date Notes Vyvanse 40 MG 1 cap(s) orally once a day (in the morning) Treatment Notes Assessment Notes Seborrhea capitis Recommend Nizoral sh ampoo Next Appt Details Follow Up: 3 Months, Reason: Provider Name:Yuko Alexander, 03/19/2025 09:00:00 AM, [facility] [address] [facility], [address], [place], [place], [phone], Progress Notes * ARLET VICTORDOB: 7 (49 yo M)Acc No.[id number]:01/01/2024 Progress Notes Patient: ARLET CARO Provider: Yuko Callahan M.D. :1975 A ge:48 Y S ex:Male Date:01/01/2024 Address:[address] [place], [place] [phone] Pcp:Minh Pop Subjective: * Chief Complaints: * 1 . 3 Month Check Up. * HPI: H PI: Patient is here today for a 3 month check up. Pt sts that he is not fasting today. D ermatology: Pt sts that he has been small pimple like sores on his head that end up getting larger and cause dry and flaking skin. Pt sts that they get crusty around the edges. Pt sts that he has been using a good shampoo but is still having issues. * ROS: D ERMATOLOGY: no R anna. n o H obey. G ASTROENTEROLOGY: no N ausea. n o V omiting. U ROLOGY: no D ifficulty urinating. n o B lood in urine. * Medical History: A DHD, Dx 2007, Lumbar Disc Herniation (L5-S1), s/p work injury, Gout, Testosterone deficiency. * Surgical History: b ack surgery x 3 , cholecystectomy , tonsillectomy , Left thumb - repair nerve , Back surgery - Fusion L5-S1 with Rods, screws, and cage Jan 23, 2018, Left ankle surgery August 2020, Left Ankle surgery repair again January, Implanted nerve stimilator - Dr. Ortiz 2021, Infusion of SI Joint 05/2022. * Hospitalization/Major Diagno stic Procedure: s ee above , [facility] ER - High Blood Pressure 02/04/2020. * Family History: F ather: 66 yrs, diagnosed with Cancer. M other: alive 72 yrs, diagnosed with Hypertension. S iblings: alive, diagnosed with Hypertension. C hildren: alive, diagnosed with Mental Illness. 1 brother(s) . 1 son(s) . . Lung Cancer, ADHD. * Social History: C URRENT TOBACCO USE: No . 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 Past smoking status: never smoked. * Medications: T aking Colchicine 0.6 MG Tablet 1 tab(s) orally as directed , Taking Lisinopril 20 MG Tablet 1 tab(s) orally once a day , Taking Methocarbamol 750 MG Tablet 1 cap(s) orally at bedtime as needed , Taking Vyvanse 40 MG Capsule 1 cap(s) orally once a day (in the morning) , Not-Taking valACYclovir HCl 1 GM Tablet 2 tab(s) orally 2 times a day , Not-Taking Potassium Chloride 99 MG TABLET 1 TAB(S) ORALLY ONCE A DAY , Not-Taking Magnesium Gluconate 250 MG Tablet 1 tab(s) orally 2 times a day , Not-Taking Dexmethylphenidate HCl ER 20 MG Capsule Extended Release 24 Hour 1 cap(s) orally once a day (in the morning) , Not-Taking AndroGel , Notes to Pharmacist: *Please review and pick correct strength-formulation from [employer] options. If intended option is not shown, discontinue and re-order from Quick Search*, Not- Taking Doxycycline Hyclate 100 MG Tablet 1 tablet Orally Two times a day , Medication List reviewed and reconciled with the patient * Allergies: B actrim DS: rash - Allergy. Objective: * Vitals: W t:283.4, Temp:97.7, BP:122/78, HR:75, Nurse:BRANDON, Ht: 73, BMI:37.39. * Examination: G eneral Examination: General Appearance: N AD. Affect good. H EENT:? sinle small patch of dry skin on crown of scalp. H eart: R . Saeed ungs: c lear to auscultation. Assessment: * Assessment: 1. A ttention deficit hyperactivity disorder (ADHD), unspecified ADHD type - F90.9 (Primary)? 2. S eborrhea capitis - L21.0 Plan: * Treatment: 2. S eborrhea capitis Notes: Recommend Nizoral shampoo * Follow Up: 3 Months * Images: Billing Information: * Visit Code: 24568 Office Visit, Est Pt., Level 3. * Procedure Codes: * Electronic signature of Yuko Callahan MD on 12/24/2024 at 07:45 AM EDT Sign off status: Pending * Provider: Yuko Callahan M.D. Date: 03/02/2023 Generated for Martin deutsch/Jose Manuel/Kenanitting on: 07:45 AM EDT History and Physical Notes * HPI (History of Present Illness) Category Sub-Category Detail Notes Category Not es Dermatology Pt sts that he has been small pimple like sores on his head that end up getting larger and cause dry and flaking skin. Pt sts that they get crusty around the edges. Pt sts that he has been using a good shampoo but is still having issues HPI Patient is here toda y for a 3 month check up. Pt sts that he is not fasting today Examination Category Sub-Category Detail Notes Category Not es General Examination HEENT: sinle small patch of dry skin on crown of scalp Heart: RSR Lungs: clear to auscultatio n General Appearance: NAD. Affect good
--- OUTSIDE RECORDS SUMMARY | 2024-04-01 05:45 | XMS_ITS ---
Author Organization [facility] Address [address] [facility] [address] [facility] [address] [place] [id number] Care Team Providers Care Edge Stitcher Name Role Phone Minh Pop Primary Care Provider [phone] Yuko Alva [phone] Allergies Allergen (clinical drug ingredient) Drug/Non Drug Allergy documented on EMR Reaction Allergy Type Onset Date Status sulfamethoxazole / trimethoprim Bactrim DS rash Drug Allergy Active REASON FOR VISIT 3 months, Needs labs with PSA & colon cancer screening Encounters Encounter Location Date Provider Diagnosis [facility] [address] [facility] [address] [place] [phone] 04/01/2024 Yuko Callahan Plan Of Treatment Next Appt Details Provider Name:Yuko Alexander, 03/19/2025 09:00:00 AM, [address] [facility] [address] [facility], [address], [place], [phone], Progress Notes * ARLET IVCTORDOB: 7 (49 yo M)Acc No.[id number]:04/01/2024 Progress Notes Patient: Ana FAUSTO ARLET Provider: Yuko Callahan M.D. :1975 A ge:49 Y S ex:Male Date:04/01/2024 Address:[address] [place], [place] [phone] Pcp:Minh Pop Subjective: * Chief Complaints: * 1 . 3 months. 2. Needs labs with PSA & colon cancer screening. * HPI: H PI: 49 year old male presents with c/o Patient is here today for?Pt is here today for a 3 month f/u. * ROS: D ERMATOLOGY: no R anna. [...] Diagno stic Procedure: s ee above , [facility] ER - High Blood Pressure 02/04/2020. * Family History: F ather: 66 yrs, diagnosed with Cancer. M other: alive 73 yrs, diagnosed with Hypertension. S iblings: alive, diagnosed with Hypertension. C hildren: alive, diagnosed with Mental Illness. 1 brother(s) . 1 son(s) . . Lung Cancer, ADHD. * Social History: C URRENT TOBACCO USE: No . 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 Past smoking status: never smoked. * Allergies: B actrim DS: rash - Allergy. Objective: * Vitals: Assessment: Plan: * Treatment: * Images: Billing Information: * Visit Code: * Procedure Codes: * Electronic signature of Yuko Callahan MD on 12/24/2024 at 07:45 AM EDT Sign off status: Pending * Provider: Yuko Callahan M.D. Date: 0 04/01/2024 Generated for Martin deutsch/Jose Manuel/Jimmy on: 07:45 AM EDT History and Physical Notes * HPI (History of Present Illness) Category Sub-Category Detail Notes Category Not es HPI Patient is here today for Pt is here toda y for a 3 month f/u
--- OUTSIDE RECORDS SUMMARY | 2024-04-02 10:00 | XMS_ITS ---
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 Name Role Phone Pretty Popian Primary Care Provider Yuko Callahan Unavailable [phone] Alfreda Anglin Unavailable [phone] Allergies Allergen (clinical drug ingredient) Drug/Non Drug Allergy documented on EMR Reaction Allergy Type Onset Date Status sulfamethoxazole / trimethoprim Bactrim DS rash Drug Allergy Active REASON FOR VISIT [facility] ER f/u and med checkup Medications Medication SIG (Take, Route, Frequency, Duration) Notes Start Date End Date Status Meclizine HCl 25 MG 1 tablet as needed Orally Three times a day 04/02/2024 Active Flonase Allergy Relief 50 MCG/ACT 1 spray in each nostril Nasally Once a day 04/02/2024 Active Lisinopril 20 MG 1 tab(s) orally once a day Active Vyvanse 40 MG 1 capsule in the morning orally Once a day; Duration: 30 day(s) 03/25/2024 Active Methocarbamol 750 MG 1 cap(s) orally at bedtime as needed Active AndroGel *Please review and pick correct strength-formula tion from Medispan options. If intended option is not shown, discontinue and re-order from Quick Search* Not-Taking Dexmethylphenidate HCl ER 20 MG 1 cap(s) orally once a day (in the morning); Duration: 30 day(s) 10/27/2021 Not-Taking Doxycycline Hyclate 100 MG 1 tablet Orally Two times a day; Duration: 10 day(s) 07/24/2023 Not-Taking Medrol 4 MG as directed orally daily; Duration: 6 days 04/02/2024 Active valACYclovir HCl 1 GM 2 tab(s) orally 2 times a day; Duration: 2 Not-Taking Magnesium Gluconate 250 MG 1 tab(s) orally 2 times a day; Duration: 30 day(s) Not-Taking Potassium Chloride 99 MG 1 TAB(S) ORALLY ONCE A DAY; Duration: 30 DAY(S) Not-Taking Vital Signs Blood pressure systolic 122 mm Hg 04/02/19 25 Blood pressure diastolic 80 mm Hg 025 Heart Rate 66 /min 04/02/2024 Height 73 in 04/02/2024 Weight 291.4 lbs 04/02/2024 BMI 38.44 kg/m2 04/02/2024 Encounters Encounter Location Date Provider Diagnosis [facility] [address] [facility] [address] [place], [place] [id number] 04/02/2024 Alfredakishore Anglin Non-recurrent acute serous otitis media of left ear H65.02 and Vertigo R42 Assessments Encounter Date Diagnosis (ICD Code) Assessment Notes Treatment Notes Treatment Clinical Notes Section Notes 04/02/2024 Non-recurrent acute serous otitis media of left ear (ICD-10 - H65.02) Reviewed labs and imaging from the ER. Will start on steroids and flonase and f/u on Sunday. 04/02/2024 Vertigo (ICD-10 - R42) Will start on meclizine and f/u on Sunday. If no improvement, will get an MRI. Plan Of Treatment Medication Medication Name Sig Start Date Stop Date Notes Meclizine HCl 25 MG 1 tablet as needed O rally Three times a day 04/02/2024 Flonase Allergy Relief 50 MCG/ACT 1 spray in each nostril Nasally Once a day 04/02/2024 Medrol 4 MG as directed orally d aily; Duration: 6 days 04/02/2024 Treatment Notes Assessment Notes Non-recurrent acute serous o titis media of left ear Reviewed labs and imaging from the ER. Will start on steroids and flonase and f/u on Sunday. Vertigo Will start on mecliz ine and f/u on Sunday. If no improvement, will get an MRI. Next Appt Details Follow Up: Sunday, Reason: Provider Name:Yuko Alexander, 03/19/2025 09:00:00 AM, [address], [address], [place], [place], [id number], Progress Notes * ARLET VICTORDOB: 7 (49 yo M)Acc No.[id number]:04/02/2024 Patient: ARLET CARO Provider: MARISOL Barreto :1975 A ge:49 Y S ex:Male Date:04/02/2024 Address:[address] [place] [address] Pcp:Minh Pop Subjective: * Chief Complaints: * 1 . H ER f/u and med checkup. * HPI: H PI: 49 year old male presents with c/o Here for follow up on: E R visit. Pt states he started on Sunday with ringing in both ears and dizziness. He then became unsteady, his vision was blurry, he had a hard time forming thoughts and speaking and was worried he was having a stroke, so he went to the . They checked labs and did a C T of the head, CTA of the head and neck, and a Venogram CT and all were normal. Pt states he still does not feel right today. He has a lot of pressure on the left side of his face into his ear. Pt states he does not have ear pain but does c/o a buzzing in both ears, worse on the left. Pt states his face felt numb yesterday but no numbness today. He is still dizzy if he moves.. * ROS: D ERMATOLOGY: no R anna. n o H obey. G ASTROENTEROLOGY: no N ausea. n o V omiting. n o D iarrhea.? U ROLOGY: no D ifficulty urinating. n [...] Diagno stic Procedure: s ee above , [facility] ER - High Blood Pressure 02/04/2020. * Family History: F ather: 66 yrs, diagnosed with Cancer. M other: alive 73 yrs, diagnosed with Hypertension. S iblings: alive, diagnosed with Hypertension. C gabyen: alive, diagnosed with Mental Illness. 1 brother(s) . 1 son(s) . . Lung Cancer, ADHD. * Social History: C URRENT TOBACCO USE: No . 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 Past smoking status: never smoked. * Medications: T aking Lisinopril 20 MG Tablet 1 tab(s) orally once a day , Taking Methocarbamol 750 MG Tablet 1 cap(s) orally at bedtime as needed , Taking Vyvanse 40 MG Capsule 1 capsule in the morning orally Once a day , Not-Taking valACYclovir HCl 1 GM Tablet [...] shown, discontinue and re-order from Quick Search*, Not-Taking Doxycycline Hyclate 100 MG Tablet 1 tablet Orally Two times a day , Discontinued Colchicine 0.6 MG Tablet 1 tab(s) orally as directed , Medication List reviewed and reconciled with the patient * Allergies: B actrim DS: rash - Allergy. Objective: * Vitals: W t:291.4, Temp:97.6, BP:122/80, HR:66, Nurse:ISSA, Ht: 73, BMI:38.44. * Examination: G eneral Examination: General Appearance: N AD. H EENT: sclera and conjunctiva clear, PERRLA, l eft TM with effusion, on erythema, right TM normal, E OM's with normal ROM, nystagmus present worse to the left. O ral cavity: n o lesions, mucosa moist and WNL, no erythema. N arianna: s upple, no lymphadenopathy, no carotid bruits. C hest: n ormal shape and expansion. H eart: R SR. L ungs: c lear to auscultation. A bdomen: bowel sounds present, soft and nontender, no organomegaly or masses, no guarding or rigidity. N eurologic Exam: alert and oriented, normal cranial nerves II-XII sensory & motor WNL, unsteady on Rhomberg, positive Ava Hallpike to the left. S kin: n ormal, no rash. P eripheral pulses: n ormal (2+) bilaterally. E xtremities: n o leg edema. ? Assessment: * Assessment: 1. N on-recurrent acute serous otitis media of left ear - H65.02 (Primary) 2 .?Vertigo - R42 Plan: * Treatment: 2. V ertigo Start Meclizine HCl Tablet, 25 MG, 1 tablet as needed, Orally, Three times a day, 30, Refills 1.? Notes: Will start on meclizine and f/u on Sunday. If no improvement, will get an MRI. * Procedure Codes: 3 074F SYST BP LT 130 MM HG, 3079F DIAST BP 80-89 MM HG * Follow Up: F riday * Images: Billing Information: * Visit Code: 08889 Office Visit, Est Pt., Level 4. * Procedure Codes: 3074F SYST BP LT 130 MM HG. 3079F DIAST BP 80-89 MM HG. * Electronic signature of MARISOL Iraheta on 12/24/2024 at 07:45 AM EDT Sign off status: Pending * Provider: MARISOL Barreto Date: 0 04/02/2024 Generated for Martin deutsch/Jose Manuel/Kenanitting on: 1 07:45 AM EDT History and Physical Notes * HPI (History of Present Illness) Category Sub-Category Detail Notes Category Not es HPI Here for follow up on: ER visit. Pt states he started on Sunday with ringing in both ears and dizziness. He then became unsteady, his vision was blurry, he had a hard time forming thoughts and speaking and was worried he was having a stroke, so [facility]. They checked labs and did a CT of the head, CTA of the head and neck, and a Venogram CT and all were normal. Pt states he still does not feel right today. He has a lot of pressure on the left side of his face into his ear. Pt states he does not have ear pain but does c/o a buzzing in both ears, worse on the left. Pt states his face felt numb yesterday but no numbness today. He is still dizzy if he moves. Examination Category Sub-Category Detail Notes Category Not es General Examination HEENT: sclera and c onjunctiva clear, PERRLA, left TM with effusion, on erythema, right TM normal, EOM's with normal ROM, nystagmus present worse to the left Heart: RSR Lungs: clear to auscultatio n Abdomen: bowel sounds present , soft and nontender, no organomegaly or masses, no guarding or rigidity Extremities: no leg edema General Appearance: NAD Skin: normal, no rash Neurologic Exam: alert and oriented, normal cranial nerves II-XII sensory & motor WNL, unsteady on Rhomberg, positive Ava Hallpike to the left Neck: supple, no lymphaden opathy, no carotid bruits Oral cavity: no lesions, mucosa m oist and WNL, no erythema Peripheral pulses: normal (2+) bilatera lly Chest: normal shape and exp ansion
--- OUTSIDE RECORDS SUMMARY | 2024-04-04 06:15 | XMS_ITS ---
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 Name Role Phone Kiesha Minh Primary Care Provider Yuko Callahan Unavailable [phone] Alfreda Anglin Unavailable [phone] Allergies Allergen (clinical drug ingredient) Drug/Non Drug Allergy documented on EMR Reaction Allergy Type Onset Date Status sulfamethoxazole / trimethoprim Bactrim DS rash Drug Allergy Active REASON FOR VISIT 2 day f/u Medications Medication SIG (Take, Route, Frequency, Duration) Notes Start Date End Date Status Meclizine HCl 25 MG 1 tablet as needed Orally Three times a day Active Medrol 4 MG as directed orally daily Active Vyvanse 40 MG 1 capsule in the mor david orally Once a day; Duration: 30 day(s) 03/25/2024 Active Lisinopril 20 MG 1 tab(s) orally once a day Active Methocarbamol 750 MG 1 cap(s) orally at bedtime as needed Active Flonase Allergy Relief 50 MCG/ACT 1 spray in each nostril Nasally Once a day Active Vital Signs Blood pressure systolic 120 mm Hg 04/04/19 25 Blood pressure diastolic 70 mm Hg 025 Heart Rate 67 /min 04/04/2024 Height 73 in 04/04/2024 Weight 291.2 lbs 04/04/2024 BMI 38.42 kg/m2 04/04/2024 Encounters Encounter Location Date Provider Diagnosis [facility] [address] [facility] [address] [place] [id number] 04/04/2024 Alfreda Anglin Non-recurrent acute serous otitis media of left ear H65.02 and Vertigo R42 Assessments Encounter Date Diagnosis (ICD Code) Assessment Notes Treatment Notes Treatment Clinical Notes Section Notes 04/04/2024 Non-recurrent acute serous otitis media of left ear (ICD-10 - H65.02) Much improved. 04/04/2024 Vertigo (ICD-10 - R42) Much improved. Will hold off on MRI and f/u next week. Plan Of Treatment Medication Medication Name Sig Start Date Stop Date Notes Meclizine HCl 25 MG 1 tablet as needed O rally Three times a day Medrol 4 MG as directed orally daily Flonase Allergy Relief 50 MCG/ACT 1 spray in each nostril Nasally Once a day Treatment Notes Assessment Notes Non-recurrent acute serous o titis media of left ear Much improved. Vertigo Much improved. Will hold off on MRI and f/u next week. Next Appt Details Follow Up: 1 Week, Reason: Provider Name:Yuko Beyerluis eric, 03/19/2025 09:00:00 AM, [address], [address] [place] [address], [phone], Progress Notes * ARLET VICTORDOB: 7 (49 yo M)Acc No.[id number]:04/04/2024 Patient: ARLET CARO Provider: MARISOL Barreto :1975 A ge:49 Y S ex:Male Date:04/04/2024 Address:[address] [place] [address] Pcp:Minh Pop Subjective: * Chief Complaints: * 1 . 2 day f/u. * HPI: C ardiology: 49 year old male presents with c/o Dizziness N ot had anymore dizzy spells. E NT/respiratory: c/o ear pain r inging in ears. Pt sts the ringing is almost completely gone. O pthalmology: c/o blurring of vision P t sts his vision is better as well he has had no more blurred vision. * ROS: D ERMATOLOGY: no R anna. [...] Diagno stic Procedure: s ee above , [facility] ER - High Blood Pressure 02/04/2020. * Family History: F ather: 66 yrs, diagnosed with Cancer. M other: alive 73 yrs, diagnosed with Hypertension. S iblings: alive, diagnosed with Hypertension. C hildren: alive, diagnosed with Mental Illness. 1 brother(s) . 1 son(s) . . Lung Cancer, ADHD. * Social History: C URRENT TOBACCO USE: No . 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 Past smoking status: never smoked. * Medications: T aking Lisinopril 20 MG Tablet 1 tab(s) orally once a day , Taking Methocarbamol 750 MG Tablet 1 cap(s) orally at bedtime as needed , Taking Vyvanse 40 MG Capsule 1 capsule in the morning orally Once a day , Taking Flonase Allergy Relief 50 MCG/ACT Suspension 1 spray in each nostril Nasally Once a day , Taking Meclizine HCl 25 MG Tablet 1 tablet as needed Orally Three times a day , Medication List reviewed and reconciled with the patient * Allergies: B actrim DS: rash - Allergy. Objective: * Vitals: W t:291.2, Temp:98.0, BP:120/70, HR:67, O2 Sat:98% on RA, Nurse:[facility], Ht: 73, BMI:38.42. * Examination: G eneral Examination: General Appearance: N AD. H EENT: u nremarkable.?Oral cavity: n o lesions, mucosa moist and WNL, no erythema. N arianna: s upple, no lymphadenopathy. C hest: n ormal shape and expansion. H eart: R SR. L ungs: c lear to auscultation. A bdomen: bowel sounds present, soft and nontender, no organomegaly or masses. N eurologic Exam: alert and oriented, normal cranial nerves II-XII sensory & motor WNL, much more steady on Rhomberg. S kin: n ormal, no rash. P eripheral pulses:?normal (2+) bilaterally. E xtremities: n o leg edema. Assessment: * Assessment: 1. N on-recurrent acute serous otitis media of left ear - H65.02 (Primary) 2 .?Vertigo - R42 Plan: * Treatment: 2. V ertigo Continue Meclizine HCl Tablet, 25 MG, 1 tablet as needed, Orally, Three times a day. Notes: Much improved. Will hold off on MRI and f/u next week. * Procedure Codes: 3 074F SYST BP LT 130 MM HG, 3078F DIAST BP < 80 MM HG * Follow Up: 1 Week * Images: Billing Information: * Visit Code: 02860 Office Visit, Est Pt., Level 4. * Procedure Codes: 3074F SYST BP LT 130 MM HG. 3078F DIAST BP < 80 MM HG. * Electronic signature of MARISOL Iraheta on 12/24/2024 at 07:46 AM EDT Sign off status: Pending * Provider: MARISOL Barreto Date: 0 04/04/2024 Generated for Domoniquei ng/Faluizg/eTransmitting on: 1 07:46 AM EDT History and Physical Notes * HPI (History of Present Illness) Category Sub-Category Detail Notes Category Not es ENT/respiratory ear pain ringing in ears. Pt sts the ringing is almost completely gone Cardiology Dizziness Not had anymore dizzy spells Opthalmology blurring of vision Pt sts his vi shahbaz is better as well he has had no more blurred vision Examination Category Sub-Category Detail Notes Category Not es General Examination HEENT: unremarkable Heart: RSR Lungs: clear to auscultatio n Abdomen: bowel sounds present , soft and nontender, no organomegaly or masses Extremities: no leg edema General Appearance: NAD Skin: normal, no rash Neurologic Exam: alert and oriented, normal cranial nerves II-XII sensory & motor WNL, much more steady on [place] Neck: supple, no lymphaden opathy Oral cavity: no lesions, mucosa m oist and WNL, no erythema Peripheral pulses: normal (2+) bilatera lly Chest: normal shape and exp ansion
--- OUTSIDE RECORDS SUMMARY | 2024-04-11 05:00 | XMS_ITS ---
Author Organization [facility] Address [address] [place] [address] 36 [facility] [address] [place], [place] [phone] Care Team Providers Care Industrial Electrician Name Role Phone Minh Pop Primary Care Provider [phone] Yuko Alva Unavailable [phone] Alfreda Anglin Unavailable [phone] REASON FOR VISIT 1 week f/u Encounters Encounter Location Date Provider Diagnosis [facility] 12[address] [facility] 36 [facility] [address] [place], [place] [phone] 04/11/2024 Alfreda Anglin Plan Of Treatment Next Appt Details Provider Name:Yuko Yeager Kayleenluis et, 03/19/2025 09:00:00 AM, [address] [facility] 36 [facility], [address], [place], [place], [id number], Progress Notes * ARLET VICTORDOB: 7 (49 yo M)Acc No.[id number]:04/11/2024 Patient: STAN CAROREY Provider: MARISOL Barreto :1975 A ge:49 Y S ex:Male Date:04/11/2024 Address:[address] [place], [place] [id number] Pcp:Minh Pop Subjective: * Chief Complaints: * 1 . 1 week f/u. * Medical History: Objective: * Vitals: Assessment: Plan: * Treatment: * Images: Billing Information: * Visit Code: * Procedure Codes: * Electronic signature of MARISOL Iraheta on 12/24/2024 at 07:46 AM EDT Sign off status: Pending * Provider: MARISOL Barreto Date: 0 04/11/2024 Generated for Martin deutsch/Jose Manuel/Jimmy on: 1 07:46 AM EDT
--- OUTSIDE RECORDS SUMMARY | 2024-04-14 07:30 | XMS_ITS ---
Author [facility] Address [address] [facility] 36 [facility] [address] [place] [id number] Care Team Providers Care Sizing Sponger Name Role Phone Minh Pop Primary Care Provider [phone] Yuko Callahan [phone] Allergies Allergen (clinical drug ingredient) Drug/Non Drug Allergy documented on EMR Reaction Allergy Type Onset Date Status sulfamethoxazole / trimethoprim Bactrim DS rash Drug Allergy Active Reason For Referral Reason [facility] Diagnosis 1 Tinnitus of both ear s (H93.13) [facility] Referring Provider First Name Minh Referring Provider Last Name Kiesha Referring Provider Speciality Family Pra ctice Referred Provider ENT, . Referred Provider Specialty ENT General Notes Liberty Burgess 04/14/19 12:58:50 PM > faxed to [facility] Jenifer BURLESON Brynn 04/15/2024 9:34:59 AM > [...] W/U Status Risk Notes Problem Bilateral tinnitus (6332648138597) Tinnitus of both ears (H93.13) Active confirmed Vital Signs Blood pressure systolic 120 mm Hg 04/14/19 25 Blood pressure diastolic 74 mm Hg 025 Heart Rate 70 /min 04/14/2024 Height 73 in 04/14/2024 Weight 293.4 lbs 04/14/2024 BMI 38.71 kg/m2 04/14/2024 Encounters Encounter Location Date Provider Diagnosis [facility] [address] [facility] 36 [facility] [address] [place], [place] [phone] 04/14/2024 Minh Pop Tinnitus of both ear [...] 04/14/2024 Referrals Referral Date Details 04/14/2024 04/14/2024, [facility], . E NT Next Appt Details Follow Up: via phone to repo rt progress, Reason: Provider Name:Yuko Carter eric, 03/19/2025 09:00:00 AM, [address] [facility] 36 [facility], [address], [place], [place], [phone], Progress Notes * ARLET VICTORDOB: 7 (49 yo M)Acc No.[id number]:04/14/2024 Progress Notes Patient: ARLET CARO Provider: Yi Pop M.D. :1975 A ge:49 Y S ex:Male Date:04/14/2024 Address:[address] [place], [place] [phone] Subjective: * Chief Complaints: * 1 . [...] URRENT TOBACCO USE: No . 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 * [...] * Images: Billing Information: * Visit Code: 00982 Office Visit, Est Pt., Level 3. * Procedure Codes: 3074F SYST BP LT 130 MM HG. 3078F DIAST BP < 80 MM HG. * Electronic signature of Rhonda Pop MD on 12/24/2024 at 07:45 AM EDT Sign off status: Pending * Provider: Yi Pop M.D. Date: 0 04/14/2024 Generated for Martin deutsch/Jose Manuel/eTransmitting on: 1 07:45 AM EDT History and [...] Not es 04/14/2024 Minh Pop ENT, . [facility]
--- OUTSIDE RECORDS SUMMARY | 2024-05-29 06:00 | XMS_ITS ---
Author Organization [facility] Address [address] [facility] [address] [place] [id number] Care Team Providers Care Camera Engineer Name Role Phone Pretty Popian Primary Care Provider [phone] Yuko Callahan Unavailable [phone] Allergies Allergen (clinical drug ingredient) Drug/Non Drug [...] Provider Diagnosis [facility] [address] [facility] [address] [place] [phone] 05/29/2024 Yuko Callahan Attention deficit hyperactivity disorder [...] Name:Yuko Alexander, 03/19/2025 09:00:00 AM, [address] [facility] 36 [facility], [address] [place] [address], [phone], Progress Notes * ARLET VICTORDOB: 7 (49 yo M)Acc No.[id number]:05/29/2024 Progress Notes Patient: ARLET CARO Provider: Yuko Callahan M.D. :1975 A ge:49 Y S ex:Male Date:05/29/2024 Address:[address] [place] [address] Pcp:Minh Pop Subjective: * Chief Complaints: * [...] URRENT TOBACCO USE: No . 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 Past smoking status: never [...] * Images: Billing Information: * Visit Code: 11248 Office Visit, Est Pt., Level 3. * Procedure Codes: 3074F SYST BP LT 130 MM HG. 3078F DIAST BP < 80 MM HG. * Electronic signature of Yuko Callahan MD on 12/24/2024 at 07:46 AM EDT Sign off status: Pending * Provider: Yuko Callahan M.D. Date: 0 05/29/2024 Generated for Martin deutsch/Jose Maneul/Jimmy on: 1 07:46 AM EDT History and [...]
--- OUTSIDE RECORDS SUMMARY | 2024-09-04 05:15 | XMS_ITS ---
[facility] Address [address] [phone] Care Team Providers Care Cafeteria Director Name Role Phone Kiesha Minh Primary Care Provider Yuko Callahan [phone] Allergies Allergen (clinical drug ingredient) Drug/Non Drug Allergy documented on EMR Reaction Allergy Type Onset Date Status sulfamethoxazole / trimethoprim Bactrim DS rash Drug Allergy Active REASON FOR VISIT 3 month f/u, Needs labs with PSA Medications Medication SIG [...] W/U Status Risk Notes Problem Otitis externa (0273619) Otitis externa (H60.90) Active confirmed Vital Signs Blood pressure systolic 120 mm Hg 09/05/19 25 Blood pressure diastolic 72 mm Hg 025 Heart Rate 84 /min 09/04/2024 Height 73 in 09/04/2024 Weight 296.6 lbs 09/04/2024 BMI 39.13 kg/m2 09/04/2024 Encounters Encounter Location Date Provider Diagnosis [facility] 36 [facility] [address] [place] [id number] 09/04/2024 Yuko Callahan Otitis externa H60.9 0 [...] Follow Up: 3 Months, Reason: Provider Name:Yuko Carter eric, 03/19/2025 09:00:00 AM, [address] [facility] 36 [facility], [address], [place], [phone], Progress Notes * ARLET VICTORDOB: 7 (49 yo M)Acc No.[id number]:09/04/2024 Progress Notes Patient: STAN CAROREY Provider: Yuko Callahan M.D. :1975 A ge:49 Y S ex:Male Date:09/04/2024 Address:[address] [place] [address] Pcp:Minh Pop Subjective: * Chief Complaints: * 1 . 3 month f/u. 2. Needs labs with PSA. * HPI: H PI: 49 year old [...] URRENT TOBACCO USE: No . 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 Past smoking status: never [...] * Images: Billing Information: * Visit Code: 54171 Office Visit, Est Pt., Level 3. * [...] 09/04/2024 Generated for Martin deutsch/Jose Manuel/Kenanitting on: 07:46 AM EDT History and Physical Notes [...]
--- OUTSIDE RECORDS SUMMARY | 2024-12-09 06:15 | XMS_ITS ---
Author Organization [facility] Address [address] [facility] [address] [facility] [address] [place] [id number] Care Team Providers Care Retail Greeting Card Merchandiser Name Role Phone Minh Pop Primary Care Provider [phone] Yuko Alva [phone] Allergies Allergen (clinical drug ingredient) Drug/Non Drug Allergy documented on EMR Reaction Allergy Type Onset Date Status sulfamethoxazole / trimethoprim Bactrim DS rash Drug Allergy Active REASON FOR VISIT 3 months Encounters Encounter Location Date Provider Diagnosis [facility] [facility] [address] [facility] [address] [place] [id number] 12/09/2024 Yuko Callahan Plan Of Treatment Next Appt Details Provider Name:Yuko Alexander, 03/19/2025 09:00:00 AM, [address] [facility] [address] [facility], [address], [place], [phone], Progress Notes * SOLIS STANPRIYADOB: [birth year] (49 yo M)Acc No.[id number]:12/09/2024 Progress Notes Patient: RALET CARO Provider: Yuko Callahan M.D. :1975 A ge:49 Y S ex:Male Date:12/09/2024 Address:[address] [place], [place] [phone] Pcp:Minh Pop Subjective: * Chief Complaints: * 1 . 3 months. * HPI: H PI: Patient is here today for 3 months checkup. Pt states . * ROS: D ERMATOLOGY: no R anna. n o H obey. G ASTROENTEROLOGY: no N ausea. n o V omiting. n o D iarrhea.? U ROLOGY: no B lood in urine. n o F requent urination. ? * Medical History: A DHD, Dx 2007, [...] S iblings: alive, diagnosed with Hypertension. C hilen: alive, diagnosed with Mental Illness. 1 brother(s) . 1 son(s) . . Lung Cancer, ADHD. * Social History: C URRENT TOBACCO USE: No . 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 Past smoking status: never smoked. * Allergies: B actrim DS: rash - Allergy. Objective: * Vitals: Assessment: Plan: * Treatment: * Images: Billing Information: * Visit Code: * Procedure Codes: * Electronic signature of Yuko Callahan MD on 12/24/2024 at 07:46 AM EDT Sign off status: Pending * Provider: Yuko Callahan M.D. Date: Generated for Martin deutsch/Jose Manuel/Michellsmitting on: 07:46 AM EDT History and Physical Notes * HPI (History of Present Illness) Category Sub-Category Detail Notes Category Not es HPI Patient is here today for 3 months checku p. Pt states
--- OUTSIDE RECORDS SUMMARY | 2024-12-16 10:45 | XMS_ITS ---
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 Name Role Phone Minh Pop Primary Care Provider Yuko Callahan Unavailable [phone] Allergies Allergen (clinical drug ingredient) Drug/Non Drug Allergy documented on EMR Reaction Allergy Type Onset Date Status sulfamethoxazole / trimethoprim Bactrim DS rash Drug Allergy Active REASON FOR VISIT refills Medications Medication SIG (Take, Route, Fr equency, Duration) Notes Start Date End Date Status Methocarbamol 750 MG 1 cap(s) orally at bedtime as needed Active Vyvanse 40 MG 1 capsule in the mor david orally Once a day; Duration: 30 days Ac tive Meclizine HCl 25 MG 1 tablet as needed O rally Three times a day Active Lisinopril 20 MG 1 tab(s) orally once a day; Duration: 90 days Active Vital Signs Blood pressure systolic 130 mm Hg 12/17/19 25 Blood pressure diastolic 70 mm Hg 025 Heart Rate 75 /min 12/16/2024 Height 73 in 12/16/2024 Weight 292.2 lbs 12/16/2024 BMI 38.55 kg/m2 12/16/2024 Encounters Encounter Location Date Provider Diagnosis [facility] [address] [place] [phone] 12/16/2024 Yuko Callahan Attention deficit hyperactivity disorder (ADHD), unspecified ADHD type F90.9 Assessments Encounter Date Diagnosis (ICD Code) Assessment Notes Treatment Notes Treatment Clinical Notes Section Notes 12/16/2024 Attention deficit hyperactivity disorder (ADHD), unspecified ADHD type (ICD-10 - F90.9) Plan Of Treatment Medication Medication Name Sig Start Date Stop Date Notes Vyvanse 40 MG 1 capsule in the mor david orally Once a day; Duration: 30 days Next Appt Details Follow Up: 3 Months, Reason: Provider Name:Yuko Alexander, 03/19/2025 09:00:00 AM, [address] [facility] [address], [address], [place], [place], [phone], Progress Notes * ARLET VICTORDOB: 7 (49 yo M)Acc No.[id number]:12/16/2024 Progress Notes Patient: ARLET CARO Provider: Yuko Callahan M.D. :1975 A ge:49 Y S ex:Male Date:12/16/2024 Address:[address] [place] [address] Pcp:Minh Pop Subjective: * Chief Complaints: * 1 . Refills. * HPI: H PI: Patient is here today for c heckup and refills.Pt is not fasting. Pt states he has no new concers today . * ROS: D ERMATOLOGY: no R [...] URRENT TOBACCO USE: No . 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 Past smoking status: never smoked. * Medications: T aking Methocarbamol 750 MG Tablet 1 cap(s) orally at bedtime as needed , Taking Meclizine HCl 25 MG Tablet 1 tablet as needed Orally Three times a day , Taking Lisinopril 20 MG Tablet 1 tab(s) orally once a day , Taking Vyvanse 40 MG Capsule 1 capsule in the morning orally Once a day , Discontinued Flonase Allergy Relief 50 MCG/ACT Suspension 1 spray in each nostril Nasally Once a day , Discontinued Ofloxacin 0.3 % Solution 10 drops into affected ear Otic Once a day , Discontinued Amitriptyline HCl 25 MG Tablet 1 or 2 tablet at bedtime Orally Once a day , Medication List reviewed and reconciled with the patient * Allergies: B actrim DS: rash - Allergy. Objective: * Vitals: W t: 292.2, Temp: 97.4, BP: 130/70, HR: 75, Nurse: pe, Ht: 73, BMI:38.55. * Examination: G eneral Examination: General Appearance: N AD. Affect good. H eart:?RSR. L ungs: c lear to auscultation. S kin: 5 mm reddened area at site of tick bite on top of right shouler. No induration or drainage. Assessment: * Assessment: 1. A ttention deficit hyperactivity disorder (ADHD), unspecified ADHD type - F90.9 (Primary)? Plan: * Treatment: * Follow Up: 3 Months * Images: Billing Information: * Visit Code: 61520 Office Visit, Est Pt., Level 3. * Procedure Codes: * Electronic signature of Yuko Callahan MD on 12/24/2024 at 07:45 AM EDT Sign off status: Pending * Provider: Yuko Callahan M.D. Date: Generated for Martin deutsch/Jose Manuel/Jimmy on: 1 07:45 AM EDT History and Physical Notes * HPI (History of Present Illness) Category Sub-Category Detail Notes Category Not es HPI Patient is here today for checku p and refills.Pt is not fasting. Pt states he has no new concers today Examination Category Sub-Category Detail Notes Category Not es General Examination Heart: RSR Lungs: clear to auscultatio n General Appearance: NAD. Affect good Skin: 5 mm reddened area a t site of tick bite on top of right shouler. No induration or drainage
--- OUTSIDE RECORDS SUMMARY | 2024-12-24 07:47 | XMS_ITS | Patient Health Record ---
Author Organization [facility] Address [address] [place] [address] [facility] [address] [place] [phone] Care Team Providers Care Ux Developer Name Role Phone Minh Pop Primary Care Provider Yuko Callahan Unavailable [phone] Alfreda Anglin Unavailable [phone] Allergies Allergen (clinical drug ingredient) Drug/Non Drug [...] Lab: Notes/Report: Negative Reason For Referral Reason [facility] Diagnosis 1 Tinnitus of both ear s (H93.13) Referral Organization [facility] Referring Provider First Name Minh Referring Provider Last Name Kiesha Referring Provider Speciality Family Pra ctice Referred Provider ENT, . Referred Provider Specialty ENT General Notes Liberty Burgess 04/14/19 25 12:58:50 PM > faxed to [facility] Jenifer BURLESON Brynn 04/15/2024 9:34:59 AM > 05/01/2024 at 11:00am Referral Priority Routine Medications Medication SIG (Take, Route, Fr equency, Duration) Notes Start Date End Date Status Methocarbamol 750 MG 1 cap(s) orally at bedtime as needed Active Vyvanse 40 MG 1 capsule in the mor david orally Once a day; Duration: 30 days Ac tive Lisinopril 20 MG 1 tab(s) orally once a day; Duration: 90 days Active Meclizine HCl 25 MG 1 tablet as needed O rally Three times a day Active Immunizations Vaccine Route Administration Date Status Comme nts Tetanus Tdap-Adacel (over 7yrs) Unknown 08/29/2020 Admi nistered Problems Problem Type SNOMED Code ICD Code Onset Dates Problem Status W/U Status Risk Notes Problem Vitamin D deficiency (39448893) Vitamin D deficiency (E55.9) Active confirmed Problem Gout (83807000) Gout (M10.9) Active confirmed Problem Essential hypertension (85990463) Essential hypertension (I10) Active confirmed Problem Otitis externa (4018499) Otitis externa (H60.90) Active confirmed Problem Obstructive sleep apnea (04607755) Obstructive sleep apnea (G47.33) Active confirmed Problem Bilateral tinnitus (6294388033005) Tinnitus of both ears (H93.13) Active confirmed Problem Attention deficit hyperactivity disorder (681244385) Attention deficit hyperactivity disorder (ADHD), unspecified ADHD type (F90.9) Active confirmed Problem Obese class II (677214456820238) BMI 37.0-37.9, adult (Z68.37) Active confirmed Problem Gout (13974966) Acute gout of right foot, unspecified cause (M10.9) Active confirmed Problem Gout (95597495) Acute gout involving toe of right foot, unspecified cause (M10.9) Active confirmed Problem Obesity (608670498) Non morbid obesity (E66.9) Active confirmed Vital Signs Heart Rate 75 /min 12/16/2024 Blood pressure diastolic 70 mm Hg 12/16/2024 Height 73 in 12/16/2024 Blood pressure systolic 130 mm Hg 12/16/2024 Weight 292.2 lbs 12/16/2024 BMI 38.55 kg/m2 12/16/2024 Encounters Encounter Location Date Provider Diagnosis [facility] [address] [facility] [address] [place] [id number] 01/01/2024 R Toy Callahan Attention deficit hyperactivity disorder (ADHD), unspecified ADHD type F90.9 and Seborrhea capitis L21.0 [facility] [address] [place] [id number] 04/02/2024 Alfreda Crowdy Non-recurrent acute serous otitis media of left ear H65.02 and Vertigo R42 [facility] [address] [place], [place] [id number] 04/04/2024 Alfreda Crowdy Non-recurrent acute serous otitis media of left ear H65.02 and Vertigo R42 [facility] [address] [place], [place] [id number] 04/14/2024 Minh Phoenix Tinnitus of both ear s H93.13 and Dizziness R42 [facility] [address] [place], [place] [id number] 05/29/2024 R Toy Sindy Attention deficit hyperactivity disorder (ADHD), unspecified ADHD type F90.9 and Tick bite W57.XXXA [facility] [address] [facility] [address] [place], [place] [id number] 09/04/2024 R Toy Sindy Otitis externa H60.9 0 and Attention deficit hyperactivity disorder (ADHD), unspecified ADHD type F90.9 [facility] [address] [place], [place] [id number] 12/16/2024 R Toy Sindy Attention deficit hyperactivity disorder (ADHD), unspecified ADHD type F90.9 [facility] [address] [facility] [address] [place], [place] [id number] 01/21/2024 R Toy Sindy Attention deficit hyperactivity disorder (ADHD), unspecified ADHD type F90.9 [facility] [address] [place], [place] [id number] 02/21/2024 R Toy Sindy Attention deficit hyperactivity disorder (ADHD), unspecified ADHD type F90.9 [facility] [address] [place], [place] [id number] 03/04/2024 Minh Phoenix [facility] [address] [place], [place] [id number] 03/25/2024 R Toy Sindy Attention deficit hyperactivity disorder (ADHD), unspecified ADHD type F90.9 [facility] [address] [place], [place] [id number] 04/28/2024 R Toy Sindy Attention deficit hyperactivity disorder (ADHD), unspecified ADHD type F90.9 [facility] [address] [place], [place] [id number] 07/04/2024 R Toy Sindy Attention deficit hyperactivity disorder (ADHD), unspecified ADHD type F90.9 [facility] [address] [place], [place] [id number] 08/01/2024 Minh Phoenix Attention deficit hyperactivity disorder (ADHD), unspecified ADHD type F90.9 [facility] [address] [place], [place] [id number] 09/02/2024 R Toy Sindy Attention deficit hyperactivity disorder (ADHD), unspecified ADHD type F90.9 [facility] [address] [place], [place] [id number] 09/26/2024 Minh Phoenix Essential hypertensi on I10 [facility] [address] [place], [place] [id number] 10/02/2024 R Toy Sindy Attention deficit hyperactivity disorder (ADHD), unspecified ADHD type F90.9 [facility] [address] [place], [place] [id number] 11/03/2024 Minh Phoenix Attention deficit hyperactivity disorder (ADHD), unspecified ADHD type F90.9 [facility] [address] [place], [place] [id number] 12/03/2024 Minh Phoenix Attention deficit hyperactivity disorder (ADHD), unspecified ADHD type F90.9 Assessments Encounter Date Diagnosis (ICD Code) Assessment Notes Treatment Notes Treatment Clinical Notes Section Notes 03/25/2024 Attention deficit hyperactivity disorder (ADHD), unspecified [...] Tinnitus of both ears (ICD-10 - H93.13) 08/01/2024 Attention deficit hyperactivity disorder (ADHD), unspecified ADHD type (ICD-10 - F90.9) 11/03/2024 Attention deficit hyperactivity disorder (ADHD), unspecified ADHD type (ICD-10 - F90.9) 12/16/2024 Attention deficit hyperactivity disorder (ADHD), unspecified ADHD type (ICD-10 - F90.9) 10/02/2024 Attention deficit hyperactivity disorder (ADHD), unspecified ADHD type (ICD-10 - F90.9) 09/26/2024 Essential hypertension (ICD-10 - I10) 09/02/2024 Attention deficit hyperactivity disorder (ADHD), unspecified [...] (ADHD), unspecified ADHD type (ICD-10 - F90.9) 12/03/2024 Attention deficit hyperactivity disorder (ADHD), unspecified ADHD type (ICD-10 - F90.9) 05/29/2024 Tick bite (ICD-10 - W57.XXXA) Notify office of suspicious rash or other systemic symptoms. 05/29/2024 Attention deficit hyperactivity disorder (ADHD), unspecified ADHD type (ICD-10 - F90.9) 04/28/2024 Attention deficit hyperactivity disorder (ADHD), unspecified ADHD type (ICD-10 - F90.9) 09/04/2024 Otitis externa (ICD-10 - H60.90) He is provided a standby prescription for ofloxacin drops if his symptoms worsen 09/04/2024 Attention deficit hyperactivity disorder (ADHD), unspecified ADHD type (ICD-10 - F90.9) Plan Of Treatment Next Appt Details Provider Name:Yuko Alexander, 03/19/2025 09:00:00 AM, [address], [place], [phone], Insurance Providers Payer Name Payer Address Payer Phone Subscriber Number Group Number Insured Name Patient Relationship to Insured Coverage Start Date Coverage End Date [employer] [phone] [id number] ARLET VICTOR Self - patient is [...] [facility] 05/2022 Hospitalization History Reason Date(Month/Year) [facility] ER - High Blood Pressure 02/04/2020
[2024-12-24 09:23] LABS: Alanine Aminotransferase 48 U/L (12-78); Albumin Level 3.6 g/dl (3.5-5.0); Alkaline Phosphatase 84 U/L (38-126); Aspartate Amino Transferase 29 U/L (17-59); Bilirubin,Direct 0.3 mg/dl (0.0-0.4); Bilirubin,Indirect 0.2 mg/dL (0.0-0.9); Bilirubin,Total 0.5 mg/dl (0.2-1.3); Bilirubin,Unconjugated 0.3 mg/dL (0.0-1.1); Cholesterol 157 mg/dl (140-200); HDL Cholesterol 39 mg/dl (40-60); Total Protein,Serum 7.5 g/dl (6.3-8.2); Triglycerides 144 mg/dl (30-150)
[2024-12-24 09:26] LABS: Anion Gap 12.3 mEq/L (5-15); Blood Urea Nitrogen 17 mg/dl (9-20); Calcium 9.5 mg/dl (8.4-10.2); Carbon Dioxide 29 mmol/L (22.0-30.0); Chloride 101 mmol/L (98-107); Creatinine,Serum 1.00 mg/dl (0.66-1.25); Estimated Glomerular Filt Rate 80 ml/min (>60); GFR (African American) 97 ML/MIN (>60); Glucose 100 mg/dl (74-100); Potassium 5.3 mmoL/L (3.5-5.1); Sodium 137 mmol/L (136-145)
== END 2024-12-24 23:59 | disposition home or self-care (01) ==
PROVIDERS: Physician Assistant; PCP Family Medicine; Visit Provider Nurse Practitioner Family
DX: I34.0 Nonrheumatic mitral (valve) insufficiency (principal); I10 Essential (primary) hypertension; E78.5 Hyperlipidemia, unspecified; Z82.49 Family history of ischemic heart disease and other diseases of the circulatory system
CPT/HCPCS: 36415; 80048; 80061; 80076